=== PATIENT | female | born 1930 | race Caucasian/White ===

== ENCOUNTER 2016-08-01 10:33 | Inpatient (IN) | payer MEDICARE, BC ==
[2016-08-01] MEDS ORDERED: ACETAMINOPHEN TAB 500 MG TAB PO STA (11:18)
--- NOTE | 2016-08-01 11:21 | ED ---
General Adult HPI - General Chief complaint: Dizziness Stated complaint: light headed Time Seen by Provider: 08/01/16 11:09 Source: patient, family, RN notes reviewed Mode of arrival: wheelchair Limitations: no limitations - History of Present Illness Initial comments: Patient is a pleasant 85-year-old female presenting to the emergency department with lightheadedness and blurred vision. 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 Patient has had similar symptoms previously needing blood transfusion. Patient just finished her first round of chemotherapy a couple of weeks ago. Daughter did notice fever this morning. Patient was unaware fever. No chills or myalgias. No cough or dyspnea. No abdominal pain or dysuria. - Related Data Home Medications Medication Instructions Recorded Confirmed Acetaminophen [Tylenol 8 Hour] 650 mg PO QID PRN 06/03/16 08/01/16 Anastrozole [Arimidex] 1 mg PO DAILY 06/03/16 08/01/16 Calcium Carbonate [Calcium] 600 mg PO DAILY 06/03/16 08/01/16 Cholecalciferol [Vitamin D3] 1,000 unit PO DAILY 06/03/16 08/01/16 Diphenoxylate HCl/Atropine 1 - 2 tab PO QID PRN 06/03/16 08/01/16 [Lomotil] Levothyroxine Sodium [Synthroid] 112 mcg PO DAILY 06/03/16 08/01/16 Simvastatin [Zocor] 20 mg PO HS 06/03/16 08/01/16 Ubidecarenone [Co Q-10] 1 cap PO DAILY 06/03/16 08/01/16 amLODIPine BESYLATE [Norvasc] 5 mg PO BID 06/03/16 08/01/16 Insulin NPH Hum/Reg Insulin Hm 20 unit SQ AC-BID 08/01/16 08/01/16 [NovoLIN 70-30 100 UNIT/ML VIAL] Psyllium Husk 100% [Metamucil] 6 gm PO DAILY PRN 08/01/16 08/01/16 Allergies Allergy/AdvReac Type Severity Reaction Status Date / Time No Known Allergies Allergy Verified 08/01/16 13:24 Review of Systems ROS Statement: Those systems with pertinent positive or pertinent negative responses have been documented in the HPI. ROS Other: All systems not noted in ROS Statement are negative. Constitutional: Reports: fever Eyes: Reports: vision change (Blurred). Denies: eye pain ENT: Denies: ear pain Respiratory: Denies: cough, dyspnea Cardiovascular: Denies: chest pain Endocrine: Reports: fatigue Gastrointestinal: Denies: abdominal pain Genitourinary: Denies: dysuria Skin: Denies: rash Neurological: Denies: weakness, confusion Past Medical History Past Medical History: Cancer, Diabetes Mellitus, Hypertension Additional Past Medical History / Comment(s): leukemia, colon cancer History of Any Multi-Drug Resistant Organisms: None Reported Past Surgical History: Bowel Resection Past Psychological History: No Psychological Hx Reported Smoking Status: Never smoker Past Alcohol Use History: None Reported Past Drug Use History: None Reported General Exam Limitations: no limitations General appearance: alert, in no apparent distress Head exam: Present: atraumatic Eye exam: Present: normal appearance ENT exam: Present: normal oropharynx Neck exam: Present: normal inspection Respiratory exam: Present: normal lung sounds bilaterally Cardiovascular Exam: Present: regular rate, normal rhythm, systolic murmur ( Patient states this is chronic) GI/Abdominal exam: Present: soft. Absent: tenderness Extremities exam: Present: normal inspection Neurological exam: Present: alert Psychiatric exam: Present: normal affect, normal mood Skin exam: Absent: rash Course Vital Signs 08/01/16 10:38 Temperature 100.6 F H Pulse Rate 97 Respiratory 20 Rate Blood Pressure 132/60 O2 Sat by Pulse 99 Oximetry EKG Findings - EKG Comments: EKG Findings:: Sinus rhythm at 87. WI 126. QRS 78. QT 414. QTC 498. Normal axis. Normal QRS. Nonspecific T-wave. Medical Decision Making - Medical Decision Making Patient reevaluated and resting comfortably in bed. Patient and family updated on results and plan. Case was discussed in detail with Dr. Glez who will try to see the patient today. Case also discussed with Dr. Barriga, who will admit for Dr. Quinteros. She recommends Levaquin and PRBC transfusion. Patient provided 2 units packed red blood cells and Levaquin was started. Admission orders written with consult. - Lab Data Result diagrams: 08/01/16 12:16 08/01/16 12:10 Lab Results 08/01/16 08/01/16 08/01/16 Range/Units 11:40 12:10 12:10 WBC (3.8-10.6) k/uL RBC (3.80-5.40) m/uL Hgb (11.4-16.0) gm/dL Hct (34.0-46.0) % MCV (80.0-100.0) fL MCH (25.0-35.0) pg MCHC (31.0-37.0) g/dL RDW (11.5-15.5) % Plt Count (150-450) k/uL Neutrophils % (Manual) % Lymphocytes % (Manual) % Monocytes % (Manual) % Myelocytes % % Neutrophils # (Manual) (1.3-7.7) k/uL Lymphocytes # (Manual) (1.0-4.8) k/uL Monocytes # (Manual) (0-1.0) k/uL Nucleated RBCs (0-0) /100 WBC Manual Slide Review Anisocytosis Rouleaux PT (9.0-12.0) sec INR (<1.1) APTT (22.0-30.0) sec Sodium 145 (137-145) mmol/L Potassium 4.6 (3.5-5.1) mmol/L Chloride 106 (98-107) mmol/L Carbon Dioxide 28 (22-30) mmol/L Anion Gap 11 mmol/L BUN 18 H (7-17) mg/dL Creatinine 0.80 (0.52-1.04) mg/dL Est GFR (MDRD) Af Amer >60 (>60 ml/min/1.73 sqM) Est GFR (MDRD) Non-Af >60 (>60 ml/min/1.73 sqM) Glucose 99 (74-99) mg/dL Plasma Lactic Acid Costa (0.7-2.0) mmol/L Calcium 9.1 (8.4-10.2) mg/dL Total Bilirubin 0.3 (0.2-1.3) mg/dL AST 15 (14-36) U/L ALT 29 (9-52) U/L Alkaline Phosphatase 64 (38-126) U/L Total Creatine Kinase 26 L (30-135) U/L CK-MB (CK-2) 0.4 (0.0-2.4) ng/mL CK-MB (CK-2) Rel Index 1.5 Troponin I <0.012 (0.000-0.034) ng/mL Total Protein 7.7 (6.3-8.2) g/dL Albumin 3.4 L (3.5-5.0) g/dL Urine Color Urine Appearance (Clear) Urine pH (5.0-8.0) Ur Specific Spivey (1.001-1.035) Urine Protein (Negative) Urine Glucose (UA) (Negative) Urine Ketones (Negative) Urine Blood (Negative) Urine Nitrate (Negative) Urine Bilirubin (Negative) Urine Urobilinogen (<2.0) mg/dL Ur Leukocyte Esterase (Negative) Influenza Type A RNA Not Detected (Not Detectd) Influenza Type B (PCR) Not Detected (Not Detectd) 08/01/16 08/01/16 08/01/16 Range/Units 12:10 12:10 12:16 WBC 1.3 L* (3.8-10.6) k/uL RBC 1.91 L (3.80-5.40) m/uL Hgb 5.6 L* (11.4-16.0) gm/dL Hct 16.6 L* (34.0-46.0) % MCV 86.7 (80.0-100.0) fL MCH 29.4 (25.0-35.0) pg MCHC 33.9 (31.0-37.0) g/dL RDW 16.4 H (11.5-15.5) % Plt Count 6 L* (150-450) k/uL Neutrophils % (Manual) 49.0 % Lymphocytes % (Manual) 41.0 % Monocytes % (Manual) 5.0 % Myelocytes % 5.0 % Neutrophils # (Manual) 0.6 L (1.3-7.7) k/uL Lymphocytes # (Manual) 0.5 L (1.0-4.8) k/uL Monocytes # (Manual) 0.1 (0-1.0) k/uL Nucleated RBCs 0 (0-0) /100 WBC Manual Slide Review Performed Anisocytosis Slight Rouleaux Present PT 11.1 (9.0-12.0) sec INR 1.1 (<1.1) APTT 22.4 (22.0-30.0) sec Sodium (137-145) mmol/L Potassium (3.5-5.1) mmol/L Chloride (98-107) mmol/L Carbon Dioxide (22-30) mmol/L Anion Gap mmol/L BUN (7-17) mg/dL Creatinine (0.52-1.04) mg/dL Est GFR (MDRD) Af Amer (>60 ml/min/1.73 sqM) Est GFR (MDRD) Non-Af (>60 ml/min/1.73 sqM) Glucose (74-99) mg/dL Plasma Lactic Acid Costa 1.6 (0.7-2.0) mmol/L Calcium (8.4-10.2) mg/dL Total Bilirubin (0.2-1.3) mg/dL AST (14-36) U/L ALT (9-52) U/L Alkaline Phosphatase (38-126) U/L Total Creatine Kinase (30-135) U/L CK-MB (CK-2) (0.0-2.4) ng/mL CK-MB (CK-2) Rel Index Troponin I (0.000-0.034) ng/mL Total Protein (6.3-8.2) g/dL Albumin (3.5-5.0) g/dL Urine Color Urine Appearance (Clear) Urine pH (5.0-8.0) Ur Specific Spivey (1.001-1.035) Urine Protein (Negative) Urine Glucose (UA) (Negative) Urine Ketones (Negative) Urine Blood (Negative) Urine Nitrate (Negative) Urine Bilirubin (Negative) Urine Urobilinogen (<2.0) mg/dL Ur Leukocyte Esterase (Negative) Influenza Type A RNA (Not Detectd) Influenza Type B (PCR) (Not Detectd) 08/01/16 Range/Units 12:41 WBC (3.8-10.6) k/uL RBC (3.80-5.40) m/uL Hgb (11.4-16.0) gm/dL Hct (34.0-46.0) % MCV (80.0-100.0) fL MCH (25.0-35.0) pg MCHC (31.0-37.0) g/dL RDW (11.5-15.5) % Plt Count (150-450) k/uL Neutrophils % (Manual) % Lymphocytes % (Manual) % Monocytes % (Manual) % Myelocytes % % Neutrophils # (Manual) (1.3-7.7) k/uL Lymphocytes # (Manual) (1.0-4.8) k/uL Monocytes # (Manual) (0-1.0) k/uL Nucleated RBCs (0-0) /100 WBC Manual Slide Review Anisocytosis Rouleaux PT (9.0-12.0) sec INR (<1.1) APTT (22.0-30.0) sec Sodium (137-145) mmol/L Potassium (3.5-5.1) mmol/L Chloride (98-107) mmol/L Carbon Dioxide (22-30) mmol/L Anion Gap mmol/L BUN (7-17) mg/dL Creatinine (0.52-1.04) mg/dL Est GFR (MDRD) Af Amer (>60 ml/min/1.73 sqM) Est GFR (MDRD) Non-Af (>60 ml/min/1.73 sqM) Glucose (74-99) mg/dL Plasma Lactic Acid Costa (0.7-2.0) mmol/L Calcium (8.4-10.2) mg/dL Total Bilirubin (0.2-1.3) mg/dL AST (14-36) U/L ALT (9-52) U/L Alkaline Phosphatase (38-126) U/L Total Creatine Kinase (30-135) U/L CK-MB (CK-2) (0.0-2.4) ng/mL CK-MB (CK-2) Rel Index Troponin I (0.000-0.034) ng/mL Total Protein (6.3-8.2) g/dL Albumin (3.5-5.0) g/dL Urine Color Yellow Urine Appearance Clear (Clear) Urine pH 6.5 (5.0-8.0) Ur Specific Spivey 1.019 (1.001-1.035) Urine Protein Trace H (Negative) Urine Glucose (UA) Negative (Negative) Urine Ketones Negative (Negative) Urine Blood Negative (Negative) Urine Nitrate Negative (Negative) Urine Bilirubin Negative (Negative) Urine Urobilinogen <2.0 (<2.0) mg/dL Ur Leukocyte Esterase Negative (Negative) Influenza Type A RNA (Not Detectd) Influenza Type B (PCR) (Not Detectd) - Radiology Data Radiology results: report reviewed (Computed tomography scan of brain shows no acute process.), image reviewed (Chest x-ray shows no acute process. ) Critical Care Time Critical Care Time: Yes Total Critical Care Time: 32 Disposition Clinical Impression: Anemia, Fever, Thrombocytopenia Disposition: ADMITTED IP TO THIS HOSP
[2016-08-01 12:44] LABS: Anisocytosis Slight; Aty Lym Flag Slight; CH 30.1; CHCM 34.9; HDW 3.39; Immature Gran Flag Marked; MCH 29.4 pg (25.0-35.0); MCHC 33.9 g/dL (31.0-37.0); MCV 86.7 fL (80.0-100.0); Mean Platelet Volume 7.7; RBC 1.91 m/uL (3.80-5.40); RDW 16.4 % (11.5-15.5); WBC (Perox) 1.33
--- NOTE | 2016-08-01 12:48 | CT ---
EXAMINATION TYPE: CT brain wo con DATE OF EXAM: 08/01/2016 12:41 PM COMPARISON: NONE HISTORY: C/O dizziness and blurred vision post chemo for Leukemia CT DLP: 999.8 mGycm Automated exposure control for dose reduction was used. FINDINGS: There is cerebral cortical atrophy. There is no mass effect nor midline shift. There is no sign of in tracranial hemorrhage. The calvarium is intact. IMPRESSION: Cerebral atrophy. No acute intracranial abnormality.
--- NOTE | 2016-08-01 12:49 | XR ---
EXAMINATION TYPE: XR chest 2V DATE OF EXAM: 08/01/2016 12:41 PM COMPARISON: NONE HISTORY: Fever and lightheadedness TECHNIQUE: Frontal and lateral views of the chest are obtained. FINDINGS: There is no heart failure nor confluent pneumonic infiltrate. There are no hilar masses. T here are surgical clips over the right breast. There are is atherosclerotic calcification in the thor acic aorta. There is no pleural effusion. IMPRESSION: No active cardiopulmonary disease.
[2016-08-01 12:50] LABS: HCT 16.6 % (34.0-46.0)
[2016-08-01 12:53] LABS: WBC 1.3 k/uL (3.8-10.6)
[2016-08-01] MEDS: SODIUM CHLORIDE 0.9% 500 ML IV SCH ×2 (12:53→14:12)
[2016-08-01 12:54] LABS: HGB 5.6 gm/dL (11.4-16.0)
[2016-08-01 12:54] LABS: ALT 29 U/L (9-52); AST 15 U/L (14-36); Alkaline Phosphatase 64 U/L (38-126); Anion Gap 11 mmol/L; Blood Urea Nitrogen 18 mg/dL (7-17); Calcium 9.1 mg/dL (8.4-10.2); Carbon Dioxide 28 mmol/L (22-30); Chloride 106 mmol/L (98-107); Glucose 99 mg/dL (74-99); Non-African American GFR(MDRD) >60 (>60 ml/min/1.73 sqM); Potassium 4.6 mmol/L (3.5-5.1); Sodium 145 mmol/L (137-145); Total Bilirubin 0.3 mg/dL (0.2-1.3); Total Protein 7.7 g/dL (6.3-8.2)
[2016-08-01 13:01] LABS: Add Differential Manual Differential
[2016-08-01 13:03] LABS: Appearance,Urine Clear (Clear); Bilirubin,Urine Negative (Negative); Glucose,Urine (UA) Negative (Negative); Ketones,Urine Negative (Negative); Leukocyte Esterase,Urine Negative (Negative); Nitrite,Urine Negative (Negative); PH, Urine 6.5 (5.0-8.0); Protein,Urine Trace (Negative); Specific Gravity,Urine 1.019 (1.001-1.035); UA Billing (MACRO vs. MICRO) CHEM; Urobilinogen,Urine <2.0 mg/dL (<2.0)
[2016-08-01 13:03] LABS: INR 1.1 (<1.1); Partial Thromboplastin Time 22.4 sec (22.0-30.0); Prothrombin Time 11.1 sec (9.0-12.0)
[2016-08-01 13:08] LABS: Manual Review Performed; Nucleated Red Blood Cells 0 /100 WBC (0-0); Total Cells Counted 100
[2016-08-01 13:10] LABS: Rouleaux Present
[2016-08-01 13:20] LABS: Creatine Kinase 26 U/L (30-135)
[2016-08-01 13:33] LABS: Creatine Kinase MB 0.4 ng/mL (0.0-2.4); Troponin I <0.012 ng/mL (0.000-0.034)
[2016-08-01] MEDS ORDERED: LEVOFLOXACIN 750MG-D5W PMX 750 MG in DEXTROSE/WATER 1 150ML.BAG IVPB STA (13:39)
[2016-08-01] MEDS ORDERED: NALOXONE 0.4 MG/ML 1 ML VIAL IV PRN (13:42)
[2016-08-01] MEDS: SODIUM CHLORIDE 0.9% 1,000 ML IV SCH ×2 (14:07→20:20)
[2016-08-01] MEDS ORDERED: CEFEPIME 2 GM in SODIUM CHLORIDE 0.9% 50 ML IVPB SCH (16:00)
[2016-08-01 16:33] LABS: Glucose,Whole Blood 178 mg/dL (75-99)
[2016-08-01] MEDS ORDERED: SODIUM CHLORIDE 0.9% 500 ML IV ONE (17:38)
[2016-08-01] MEDS ORDERED: IV VANCOMYCIN PER PHARMACY 1 EACH MISC MISCELLANE PRN (17:38)
[2016-08-01] MEDS ORDERED: VANCOMYCIN 1,000 MG in SODIUM CHLORIDE 0.9% 250 ML IVPB STA (17:43)
[2016-08-01] MEDS: PANTOPRAZOLE 40 MG/10 ML VIAL IV SCH (20:20)
[2016-08-01] MEDS: CEFEPIME 2 GM in SODIUM CHLORIDE 0.9% 50 ML IVPB SCH (20:20)
--- NOTE | 2016-08-01 20:29 | CONS ---
DATE OF CONSULTATION: 08/01/2016 REASON FOR CONSULTATION: Acute myelogenous leukemia. CHIEF COMPLAINT: Weak and dizzy. Alla is a very pleasant 85-year-old lady very well-known to me for quite some time. The patient was initially diagnosed with right breast carcinoma when she presented with palpable mass in November 2013. It was about 5 cm mass in her breast. 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 All margins were negative. The patient declined adjuvant radiation therapy. However, she agreed to endocrine therapy with oral Arimidex, which she has been on. Then subsequently in July 2014 she had a screening colonoscopy and was found to have a few polyps in her colon, one in the transverse colon which malignant and she underwent hemicolectomy on 07/25/2014. 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 The patient was on observation in that regard. However, she did okay until May 2015 when she presented with lower gastrointestinal bleed and she had EGD and colonoscopy on 06/12/2015, which found to have lesion in the distal bowel. Biopsy was positive for well differentiated endocrine carcinoma. CT scan of the abdomen and pelvis revealed inflammatory changes in the bowel and intermediate lung nodules. She had a PET scan in June 2015, which did not reveal any evidence of metastatic disease. 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 She had 9 out of ( ) positive nodes and the patient was placed on observation in that regard. The patient, subsequently developed progressive anemia and she became severely anemic in April 2016 and she ended up having a bone marrow biopsy on 06/09/2016 which was consistent with acute myelogenous leukemia with cytogenetic and FISH analysis revealing 5q lesion and gain of 8q24. After lengthy discussion with the patient about her overall prognosis, which is poor and we discussed treatment options. At her age she was not a candidate for high-intensity chemotherapy. She was also offered referral to clinical trial versus treatment with ( ) agent like Dacogen or Vidaza. The patient made a decision to proceed with Dacogen, which we started Dacogen on 07/13/2016 and she has one cycle so far completed on 07/17/2016. However, the patient was brought into the hospital by her sister because she has been feeling very weak and lightheaded over the last few days. She was found to be severely anemic and neutropenic. She also had a fever in the emergency department so the patient is being admitted to the hospital. She denied feeling feverish or having chills at home. She was only feeling dizzy and lightheaded. No headaches. No dysphagia. No nausea or vomiting. No melena, hematochezia, hematuria, or hemoptysis. No change in her bowel habits. No urinary symptoms. No headaches. No seizure, no syncope. PAST MEDICAL HISTORY: As stated above, she has breast carcinoma, colon carcinoma, carcinoid tumor of small bowel and as stated recent diagnosis of acute myelogenous leukemia. She also has a history of hypertension, hyperlipidemia and heart murmur, history of diabetes and hypothyroidism. PAST SURGICAL HISTORY: She has a history of hemicolectomy, right breast lumpectomy, partial small bowel resection, appendectomy, and tubal ligation in the past. FAMILY HISTORY: She has one brother with bone cancer, daughter who had ovarian cancer and carcinoma of the cervix. She had an aunt who had brain cancer as well. REVIEW OF SYSTEMS: As stated above in the history of present illness. ALLERGIES: No known drug allergies. Current medications include: 1. Tylenol as needed. 2. Levaquin 750 mg IV daily. 3. Protonix 40 mg IV daily. 4. She is on IV fluids at 20 ml/h. On physical examination she is alert and oriented x3. She does not appear to be in acute distress at this time. Well-developed, well-nourished. Her vital signs are temperature 100.6 upon admission, now is 100.5. HEENT: Normocephalic, atraumatic. No obvious icterus. NECK: Supple. No jugular venous distention. CHEST: Equal expansion to auscultation and percussion. HEART: Regular rate and rhythm. ABDOMEN: Soft. No apparent organomegaly or masses. Bowel sounds present. EXTREMITIES: No edema. SKIN: No significant bruises, petechia. LYMPHATICS: No peripherally enlarged cervical, supraclavicular lymphadenopathy. MUSCULOSKELETAL: Moving all extremities appropriately. No percussion tenderness detected over spine or sternum. LABORATORY DATA: WBC 1.0, hemoglobin is 5.6, hematocrit 16.6, platelets are 6, absolute neutrophil count 0.6, sodium 145, potassium 4.6, chloride 106, CO2 is 28. BUN 18, creatinine 0.8, AST and total bilirubin are within normal limits. Chest x-ray done in the emergency department was normal. IMPRESSION: 1. Fever neutropenic lady. 2. Acute myelogenous leukemia with diagnostic and therapeutic circumstances as stated above. 3. Pancytopenia secondary to above. 4. Secondary to above and recent treatment with Dacogen. 5. History of breast carcinoma. 6. History of adenocarcinoma of the colon. 7. History of neuroendocrine carcinoma of the small bowel. 8. Multiple other comorbidities. RECOMMENDATIONS: 1. Agree with admitting the patient to the hospital. 2. Will change her to broad-spectrum antibiotics. 3. Start the patient on granulocyte colony-stimulating factor. 4. Panculture and urine cultures will be obtained prior to initiation of broad-spectrum antibiotics. 5. Supportive transfusion and supportive care will be provided. 6. The above was discussed with the patient and I answered all her questions to her satisfaction. Thank you very much for asking me to participate in the care of this lady.
[2016-08-01 20:38] LABS: Creatine Kinase 29 U/L (30-135)
[2016-08-01 20:51] LABS: Creatine Kinase MB 0.3 ng/mL (0.0-2.4); Troponin I <0.012 ng/mL (0.000-0.034)
--- NOTE | 2016-08-01 20:52 | CONS ---
DATE OF CONSULTATION: 08/01/2016 REASON FOR CONSULT: Hypertension, severe anemia, general ICU care and sepsis. HISTORY OF PRESENTING ILLNESS: Ms. Alla Bingham is an 85-year-old female who was seen, evaluated and examined in the emergency department. This patient presented to the hospital with generalized weakness and dizziness. Patient has a history of chronic anemia. Her symptoms are very much consistent with her prior symptoms of anemia, came into the hospital. Patient was seen, evaluated, examined in the emergency department, found to be severity anemic, her hemoglobin only 5, and low platelet count. The patient is to get a blood transfusion as well as platelet transfusions, being admitted to the ICU. Patient recently finished chemotherapy for acute leukemia a week ago. Patient has been running a fever as well. Denies any cough or sputum production. Denies any chest pain, but does complain of generalized weakness. PAST MEDICAL HISTORY: As dictated above, significant for diabetes mellitus, hypertension, colon cancer and leukemia. PAST SURGICAL HISTORY: Significant for bowel resection. FAMILY HISTORY AND SOCIAL HISTORY: Denies any smoking, ethanol abuse. Denies any substance use. ALLERGIES: No known drug allergy. Medications at home include: 1. 70/30 insulin 20 units 2 times a day. 2. Metamucil 6 g daily. 3. Amlodipine 5 mg p.o. 2 times a day. 4. Also on Tylenol as needed. 5. Arimidex 1 mg daily. 6. Calcium carbonate 600 mg daily. Vitamin D. 7. Also on Lomotil as needed. 8. Synthroid 112 mcg daily. 9. Zocor 20 mg daily. REVIEW OF SYSTEMS: PHARMACEUTICAL PHYSICIAN: Denies any seizure-like activity, loss of consciousness, hemiparesis, but does complain of generalized weakness. CARDIORESPIRATORY: Denies any chest pain or radiation of pain. Denies any sputum production. GI/: Otherwise unremarkable and noncontributory. MUSCULOSKELETAL/DERMATOLOGICAL: Unremarkable and noncontributory. Medications initiated in the emergency department include: 1. Cefepime q.12 hourly 2 g. 2. Also on Naloxone. 3. Protonix. 4. IV fluid 100 mL an hour and 5. Tylenol as needed. On examination, most recent vitals include blood pressure is 127/66, respirations 20, pulse 85, temperature 98, saturation 96% on room air. HEENT: Atraumatic, normocephalic. Pharynx is clear. Narrow pharyngeal opening is present. NECK: Supple without lymphadenopathy, jugular venous distention or carotid bruits. LUNGS: Bilateral good air entry is present without significant rales, rhonchi or rub. HEART: Regular rate and rhythm. S1 and S2 audible. ABDOMEN: Soft. No rebound or rigidity. EXTREMITIES: +1 peripheral pulses. NEUROLOGICAL: Otherwise, awake and alert. The x-ray of the chest is unremarkable. The CT scan of the brain is unremarkable. Other laboratory data reviewed, which include white cell count is only 1300, hemoglobin of 5.6, hematocrit 16, platelet count only 6000. PT, INR within normal limits. Chemistry within normal limits. Urinalysis is unremarkable. Stool for occult blood is positive. Influenza A and B both negative. IMPRESSION: 1. Low-grade fever of unclear etiology. Patient is pancytopenic post chemotherapy. Agree with empiric antibiotic in the form of Cefepime. 2. Pancytopenia, including anemia, thrombocytopenia and leukopenia post chemotherapy. 3. Occult gastrointestinal bleed cannot be excluded, given severe thrombocytopenia is present and likely secondary to that, rather than primary event. Primary event appears to be more a bone marrow suppression. 4. Leukemia. 5. History of colon cancer. 6. Diabetes mellitus with relatively stable sugars, normal renal functions. PLAN AND RECOMMENDATIONS: As above. Continue supportive care. Agree with placement into the ICU. Patient to be kept on DVT prophylaxis with pneumatic compression device, peptic ulcer disease prophylaxis with Protonix, blood transfusion and platelets transfusion. Will monitor and observe.
[2016-08-02 00:11] LABS: Creatine Kinase 27 U/L (30-135)
[2016-08-02 00:24] LABS: Creatine Kinase MB 0.4 ng/mL (0.0-2.4); Troponin I <0.012 ng/mL (0.000-0.034)
[2016-08-02 05:00] LABS: ALT 31 U/L (9-52); AST 16 U/L (14-36); Alkaline Phosphatase 56 U/L (38-126); Anion Gap 11 mmol/L; Blood Urea Nitrogen 11 mg/dL (7-17); Calcium 8.5 mg/dL (8.4-10.2); Carbon Dioxide 22 mmol/L (22-30); Chloride 109 mmol/L (98-107); Glucose 137 mg/dL (74-99); Magnesium 1.9 mg/dL (1.6-2.3); Non-African American GFR(MDRD) >60 (>60 ml/min/1.73 sqM); Phosphorous 2.6 mg/dL (2.5-4.5); Potassium 4.2 mmol/L (3.5-5.1); Sodium 142 mmol/L (137-145); Total Bilirubin 0.7 mg/dL (0.2-1.3); Total Protein 6.8 g/dL (6.3-8.2)
[2016-08-02] MEDS ORDERED: Magnesium Replacement Protocol 1 EACH MISC MISCELLANE PRN (05:20)
[2016-08-02 05:36] LABS: CH 29.4; CHCM 33.2; HCT 20.4 % (34.0-46.0); HDW 3.13; Immature Gran Flag Marked; Large Platelets Flag Moderate; MCH 29.4 pg (25.0-35.0); MCHC 33.1 g/dL (31.0-37.0); MCV 88.8 fL (80.0-100.0); Mean Platelet Volume 12.3; RDW 15.8 % (11.5-15.5); WBC (Perox) 1.39
[2016-08-02 05:41] LABS: WBC 1.4 k/uL (3.8-10.6)
[2016-08-02 05:42] LABS: HGB 6.8 gm/dL (11.4-16.0)
[2016-08-02] MEDS: MAGNESIUM SULFATE-D5W PMX 1 GM in DEXTROSE/WATER 1 100ML.BAG IVPB SCH ×2 (05:46→06:55)
[2016-08-02] MEDS: SODIUM CHLORIDE 0.9% 1,000 ML IV SCH ×3 (05:46→18:32)
[2016-08-02] MEDS: LEVOTHYROXINE 112 MCG TAB PO SCH (07:12)
[2016-08-02] MEDS: CALCIUM CARBONATE 500 MG CHEWABLE PO SCH (08:00)
[2016-08-02] MEDS: CEFEPIME 2 GM in SODIUM CHLORIDE 0.9% 50 ML IVPB SCH ×2 (08:00→18:31)
[2016-08-02] MEDS: ANASTROZOLE 1 MG TAB PO SCH (08:01)
[2016-08-02] MEDS: amLODIPine 5 MG TAB PO SCH ×2 (08:01→19:41)
[2016-08-02] MEDS: PANTOPRAZOLE 40 MG/10 ML VIAL IV SCH (08:05)
--- NOTE | 2016-08-02 08:21 | XR ---
EXAMINATION TYPE: XR chest 1V DATE OF EXAM: 08/02/2016 6:32 AM COMPARISON: August 01, 2016 HISTORY: Shortness of breath TECHNIQUE: Single frontal view of the chest is obtained. FINDINGS: There is no pleural effusion or pneumothorax. Developing infrahilar opacities likely relat e to atelectasis given decrease in degree of inspiration compared to the prior exam. Postsurgical ch anges again overlie the right lower lobe, located within the right breast. The cardiac silhouette siz e is within normal limits. Degenerative changes are appreciated of the glenohumeral joint, acromiocla vicular joint, and visualized thoracic spine. IMPRESSION: Decreased degree of inspiration in comparison to the prior exam resulting in bibasilar a nd infrahilar atelectasis.
[2016-08-02 08:26] LABS: Add Differential Manual Differential
[2016-08-02 08:30] LABS: Manual Review Performed; Nucleated Red Blood Cells 0 /100 WBC (0-0); Rouleaux Present; Total Cells Counted 100
[2016-08-02] MEDS: FILGRASTIM-SNDZ 480 MCG/0.8 ML SYRINGE SQ SCH (08:30)
[2016-08-02] MEDS ORDERED: VANCOMYCIN 1,250 MG in SODIUM CHLORIDE 0.9% 250 ML IVPB SCH (09:00)
[2016-08-02] MEDS ORDERED: UBIDECARENONE PO SCH (09:00)
[2016-08-02] MEDS ORDERED: FUROSEMIDE 10 MG/ML 2 ML VIAL IV ONE (09:00)
--- NOTE | 2016-08-02 10:29 | P.GSCN ---
History of Present Illness Consult date: 08/02/16 Reason for Consult: Anemia History of present illness: The patient is well known to me. She has a history of a breast cancer which was treated surgically in the past. She also had a colon resection for a localize colon cancer. 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 Just started treatment for this last month. She is brought in the hospital due to weakness and dizziness. Review of Systems All systems: negative Past Medical History Past Medical History: Cancer, Diabetes Mellitus, Hypertension Additional Past Medical History / Comment(s): leukemia, colon cancer, breast cancer, neuroendocrine tumor of the ileum History of Any Multi-Drug Resistant Organisms: None Reported Past Surgical History: Bowel Resection Additional Past Surgical History / Comment(s): Lumpectomy with sentinel lymph node biopsy Past Anesthesia/Blood Transfusion Reactions: No Reported Reaction Past Psychological History: No Psychological Hx Reported Smoking Status: Never smoker Past Alcohol Use History: None Reported Past Drug Use History: None Reported Medications and Allergies Home Medications Medication Instructions Recorded Confirmed Type Acetaminophen [Tylenol 8 Hour] 650 mg PO QID PRN 06/03/16 08/01/16 History Anastrozole [Arimidex] 1 mg PO DAILY 06/03/16 08/01/16 History Calcium Carbonate [Calcium] 600 mg PO DAILY 06/03/16 08/01/16 History Cholecalciferol [Vitamin D3] 1,000 unit PO DAILY 06/03/16 08/01/16 History Diphenoxylate HCl/Atropine 1 - 2 tab PO QID PRN 06/03/16 08/01/16 History [Lomotil] Levothyroxine Sodium [Synthroid] 112 mcg PO DAILY 06/03/16 08/01/16 History Simvastatin [Zocor] 20 mg PO HS 06/03/16 08/01/16 History Ubidecarenone [Co Q-10] 1 cap PO DAILY 06/03/16 08/01/16 History amLODIPine BESYLATE [Norvasc] 5 mg PO BID 06/03/16 08/01/16 History Insulin NPH Hum/Reg Insulin Hm 20 unit SQ AC-BID 08/01/16 08/01/16 History [NovoLIN 70-30 100 UNIT/ML VIAL] Psyllium Husk 100% [Metamucil] 6 gm PO DAILY PRN 08/01/16 08/01/16 History Allergies Allergy/AdvReac Type Severity Reaction Status Date / Time No Known Allergies Allergy Verified 08/01/16 13:24 Surgical - Exam Osteopathic Statement: *. No significant issues noted on an osteopathic structural exam other than those noted in the History and Physical/Consult. Vital Signs Temp Pulse Resp BP Pulse Ox 100.6 F H 97 20 132/60 99 08/01/16 10:38 08/01/16 10:38 08/01/16 10:38 08/01/16 10:38 08/01/16 10:38 - General well developed, well nourished, no distress - Eyes normal ocular movement - ENT normal mucosa, decreased hearing (Which is chronic for her and stable) - Neck trachea midline - Respiratory normal expansion, normal respiratory effort, clear to auscultation - Cardiovascular Rhythm: regular - Abdomen Abdomen: soft, non tender, bowel sounds Results - Labs 08/02/16 04:10 08/02/16 04:10 Abnormal Lab Results - Last 24 Hours (Table) 08/01/16 08/01/16 08/01/16 Range/Units 15:32 15:35 16:32 WBC (3.8-10.6) k/uL RBC (3.80-5.40) m/uL Hgb (11.4-16.0) gm/dL Hct (34.0-46.0) % RDW (11.5-15.5) % Plt Count (150-450) k/uL Neutrophils # (Manual) (1.3-7.7) k/uL Lymphocytes # (Manual) (1.0-4.8) k/uL Chloride (98-107) mmol/L Glucose (74-99) mg/dL POC Glucose (mg/dL) 178 H (75-99) mg/dL Plasma Lactic Acid Costa 4.2 H* (0.7-2.0) mmol/L Total Creatine Kinase (30-135) U/L Albumin (3.5-5.0) g/dL Stool Occult Blood Positive H (Negative) 08/01/16 08/01/16 08/02/16 Range/Units 18:49 23:29 04:10 WBC 1.4 L* (3.8-10.6) k/uL RBC 2.30 L (3.80-5.40) m/uL Hgb 6.8 L* (11.4-16.0) gm/dL Hct 20.4 L (34.0-46.0) % RDW 15.8 H (11.5-15.5) % Plt Count 17 L* D (150-450) k/uL Neutrophils # (Manual) 0.7 L (1.3-7.7) k/uL Lymphocytes # (Manual) 0.5 L (1.0-4.8) k/uL Chloride (98-107) mmol/L Glucose (74-99) mg/dL POC Glucose (mg/dL) (75-99) mg/dL Plasma Lactic Acid Costa (0.7-2.0) mmol/L Total Creatine Kinase 29 L 27 L (30-135) U/L Albumin (3.5-5.0) g/dL Stool Occult Blood (Negative) 08/02/16 Range/Units 04:10 WBC (3.8-10.6) k/uL RBC (3.80-5.40) m/uL Hgb (11.4-16.0) gm/dL Hct (34.0-46.0) % RDW (11.5-15.5) % Plt Count (150-450) k/uL Neutrophils # (Manual) (1.3-7.7) k/uL Lymphocytes # (Manual) (1.0-4.8) k/uL Chloride 109 H (98-107) mmol/L Glucose 137 H (74-99) mg/dL POC Glucose (mg/dL) (75-99) mg/dL Plasma Lactic Acid Costa (0.7-2.0) mmol/L Total Creatine Kinase (30-135) U/L Albumin 2.9 L (3.5-5.0) g/dL Stool Occult Blood (Negative) Diabetes panel 08/02/16 Range/Units 04:10 Sodium 142 (137-145) mmol/L Potassium 4.2 (3.5-5.1) mmol/L Chloride 109 H (98-107) mmol/L Carbon Dioxide 22 (22-30) mmol/L BUN 11 (7-17) mg/dL Creatinine 0.70 (0.52-1.04) mg/dL Glucose 137 H (74-99) mg/dL Calcium 8.5 (8.4-10.2) mg/dL AST 16 (14-36) U/L ALT 31 (9-52) U/L Alkaline Phosphatase 56 (38-126) U/L Total Protein 6.8 (6.3-8.2) g/dL Albumin 2.9 L (3.5-5.0) g/dL Calcium panel 08/02/16 Range/Units 04:10 Calcium 8.5 (8.4-10.2) mg/dL Phosphorus 2.6 (2.5-4.5) mg/dL Albumin 2.9 L (3.5-5.0) g/dL Pituitary panel 08/02/16 Range/Units 04:10 Sodium 142 (137-145) mmol/L Potassium 4.2 (3.5-5.1) mmol/L Chloride 109 H (98-107) mmol/L Carbon Dioxide 22 (22-30) mmol/L BUN 11 (7-17) mg/dL Creatinine 0.70 (0.52-1.04) mg/dL Glucose 137 H (74-99) mg/dL Calcium 8.5 (8.4-10.2) mg/dL Adrenal panel 08/02/16 Range/Units 04:10 Sodium 142 (137-145) mmol/L Potassium 4.2 (3.5-5.1) mmol/L Chloride 109 H (98-107) mmol/L Carbon Dioxide 22 (22-30) mmol/L BUN 11 (7-17) mg/dL Creatinine 0.70 (0.52-1.04) mg/dL Glucose 137 H (74-99) mg/dL Calcium 8.5 (8.4-10.2) mg/dL Total Bilirubin 0.7 (0.2-1.3) mg/dL AST 16 (14-36) U/L ALT 31 (9-52) U/L Alkaline Phosphatase 56 (38-126) U/L Total Protein 6.8 (6.3-8.2) g/dL Albumin 2.9 L (3.5-5.0) g/dL Assessment and Plan (1) Pancytopenia Status: Acute (2) Febrile neutropenia Status: Acute (3) History of breast cancer in female Status: Acute (4) History of colon cancer Status: Acute (5) History of malignant neuroendocrine tumor Status: Acute (6) Anemia Status: Acute Plan: Although she is heme positive, no evidence of acute GI bleed. Recommend treatment for her acute myelogenous leukemia. If she develops active bleeding would consider EGD. Possible colonoscopy but that's been performed within the last year.
--- NOTE | 2016-08-02 11:43 | PN ---
DATE OF SERVICE: 08/02/2016 Ms. Alla Bingham is seen, evaluated and examined. She is an 85-year-old female with problems associated with chronic anemia and acute leukemia, status post chemotherapy. Clinically patient is doing well, awake, alert, breathing comfortably. Lactic acidosis has significantly improved. The patient is currently undergoing a third unit of packed RBCs. Another unit is being planned. She still has dark stool. GI service is on consult as well. Her last set of vitals includes blood pressure is 124/65, respiratory rate 20, pulse 78, temperature 98, sating 95%. HEENT: Unremarkable. NECK: Supple. LUNGS: Good air entry bilaterally. HEART: Regular rate and rhythm. ABDOMEN: Soft. NEUROLOGICAL EXAMINATION: Otherwise awake and alert. Labs reviewed. White cell count is 1400, hemoglobin and hematocrit is 6.8 and 28, platelet count of 17,000 up from 6000. Sodium is ( ), potassium 4.2. BUN and creatinine 11 and 0.7. IMPRESSION: 1. Gastrointestinal bleed. 2. Severe thrombocytopenia and pancytopenia. 3. Severe anemia, post chemotherapy. 4. Systemic inflammatory response syndrome like process related severe anemia with lactic acidosis. Lactic acid level has improved now. Plan and recommendation is to continue blood transfusion, keep hemoglobin above 8, awaiting further evaluation by the Surgical Service. Chest x-ray performed today has been reviewed, subsegmental atelectasis cannot be excluded. Will follow.
--- NOTE | 2016-08-02 12:03 | P.HPIM ---
History of Present Illness H&P Date: 08/02/16 Chief Complaint: Dizziness This is an 85-year-old female. Her primary care physician is Dr. Pride. She has a past medical history of diabetes mellitus type 2 insulin- requiring, hypertension, hyperlipidemia, hypothyroidism, breast cancer, colon cancer status post bowel resection, acute myelogenous leukemia, pancytopenia, vitamin D deficiency. Patient had a recent hospitalization at [facility] at which time she was admitted from July 02 through 2016. She was treated for anemia and was transfused with 3 units of packed RBCs. Her troponins were elevated 0.33 and this was thought to be due to the anemia. Her EF was 55-60% patient states that she noticed her vision was fuzzy the past 2 days when she got up in the morning and then that would clear in the next hour and a half to 2 hours. She also states that her sister didn't like the color of her skin or her lips and made her come into the hospital. She denies having any abdominal pain she denies any falls. She does have chronic diarrhea. She states her first bowel movement in the morning is usually formed and then her stools are loose throughout the day and she goes 5-6 times depending on what she eats. She denies having any lightheadedness or dizziness. She does receive outpatient transfusions in the last one was on July 24. Patient presented to [facility] emergency center. She was found to have a fever of 100.6, thrombocytopenia with white count of 1.3, hemoglobin 5.6 and platelet count 6. Troponin was negative. Influenza A and B by PCR not detected. Electrolytes, kidney and liver functions within normal limits. Urinalysis negative. CAT scan of the brain showed no acute process. Chest x-ray showed no acute process. Patient did have a bloody bowel movement while in the emergency center. Patient was admitted to the intensive care unit , consult with Dr. Salas requested for intensive care management and oncology consult placed. Consult with Dr. Varner for anemia. Blood cultures were obtained. She received 1 dose of Levaquin and vancomycin in the emergency center. She is currently on Cefepime. She is status post transfusion of platelets and packed RBCs. She has not required vasopressors. She has been seen by Dr. 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 CAT scan revealed inflammatory changes in the bowel and lung nodules. PET scan in June 2015 did not reveal any evidence of metastatic disease. 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 Due to severe anemia in April 2016 she underwent a bone marrow biopsy which was consistent with acute myelogenous leukemia. Patient decided to start Dacogen which was done on 07/13/2016 and completed 1 cycle on 07/17/2016. Patient is also followed by Dr. Salas for intensive care management. She has been seen by Dr. Varner for anemia. Occult stool was positive but no evidence of acute GI bleed. No procedures planned at this time. Review of Systems All systems: negative Constitutional: Denies chills, Denies fever Eyes: bilateral blurred vision, denies pain Ears, nose, mouth and throat: Denies headache, Denies sore throat Cardiovascular: Denies chest pain, Denies shortness of breath Respiratory: Denies cough Gastrointestinal: Denies abdominal pain, Denies diarrhea, Denies nausea, Denies vomiting Genitourinary: Denies dysuria, Denies hematuria Musculoskeletal: Denies myalgias Integumentary: Reports color changes, Denies pruritus, Denies rash Neurological: Denies numbness, Denies weakness Psychiatric: Denies anxiety, Denies depression Endocrine: Denies fatigue, Denies weight change Past Medical History Past Medical History: Cancer, Diabetes Mellitus, Hyperlipidemia, Hypertension, Thyroid Disorder Additional Past Medical History / Comment(s): Breast cancer status post lumpectomy and sentinel node biopsy 2013, 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, acute myelogenous leukemia, pancytopenia, hypothyroidism, diabetes mellitus type 2 insulin requiring History of Any Multi-Drug Resistant Organisms: None Reported Past Surgical History: Appendectomy, Bowel Resection Additional Past Surgical History / Comment(s): Right breast lumpectomy, Hemicolectomy, bone marrow biopsy and aspiration, ectopic surgery Past Anesthesia/Blood Transfusion Reactions: No Reported Reaction Past Psychological History: No Psychological Hx Reported Smoking Status: Former smoker Past Alcohol Use History: None Reported Additional Past Alcohol Use History / Comment(s): Patient smoked a half a pack a day for 50 years and quit in 2007. She denies any alcohol or illegal drug use. She is and lives with her sister. She is quite active she does not have oxygen, nebulizer, CPAP. She does not need cane or walker. Past Drug Use History: None Reported - Past Family History Father Additional Family Medical History / Comment(s): Father at age 78 from lung cancer. Mother Additional Family Medical History / Comment(s): Mother at age 78 from brain hemorrhage. Brother(s) Additional Family Medical History / Comment(s): Patient has 6 siblings with medical problems including diabetes, hypertension, breast cancer. Daughter(s) Additional Family Medical History / Comment(s): She has one daughter that from breast cancer. Medications and Allergies Home Medications Medication Instructions Recorded Confirmed Type Acetaminophen [Tylenol 8 Hour] 650 mg PO QID PRN 06/03/16 08/01/16 History Anastrozole [Arimidex] 1 mg PO DAILY 06/03/16 08/01/16 History Calcium Carbonate [Calcium] 600 mg PO DAILY 06/03/16 08/01/16 History Cholecalciferol [Vitamin D3] 1,000 unit PO DAILY 06/03/16 08/01/16 History Diphenoxylate HCl/Atropine 1 - 2 tab PO QID PRN 06/03/16 08/01/16 History [Lomotil] Levothyroxine Sodium [Synthroid] 112 mcg PO DAILY 06/03/16 08/01/16 History Simvastatin [Zocor] 20 mg PO HS 06/03/16 08/01/16 History Ubidecarenone [Co Q-10] 1 cap PO DAILY 06/03/16 08/01/16 History amLODIPine BESYLATE [Norvasc] 5 mg PO BID 06/03/16 08/01/16 History Insulin NPH Hum/Reg Insulin Hm 20 unit SQ AC-BID 08/01/16 08/01/16 History [NovoLIN 70-30 100 UNIT/ML VIAL] Psyllium Husk 100% [Metamucil] 6 gm PO DAILY PRN 08/01/16 08/01/16 History Allergies Allergy/AdvReac Type Severity Reaction Status Date / Time No Known Allergies Allergy Verified 08/01/16 13:24 Physical Exam Vitals: Vital Signs Temp Pulse Resp BP Pulse Ox 08/02/16 07:00 78 21 124/65 95 08/02/16 06:00 75 18 132/61 94 L 08/02/16 05:00 80 12 133/61 94 L 08/02/16 04:00 98.4 F 81 11 L 133/58 96 08/02/16 03:00 78 19 119/58 92 L 08/02/16 02:00 98.7 F 81 24 115/70 93 L 08/02/16 01:55 98.4 F 70 18 136/65 94 L 08/02/16 01:02 98.4 F 80 16 122/56 08/02/16 01:00 83 19 132/57 95 08/02/16 00:32 98.6 F 80 18 120/62 08/02/16 00:24 98.4 F 82 16 136/60 08/02/16 00:22 99.0 F 81 16 140/65 08/02/16 00:00 99.0 F 80 20 139/68 94 L 08/01/16 23:07 81 20 143/59 96 08/01/16 23:00 80 21 143/59 95 08/01/16 22:24 98.6 F 80 16 140/70 08/01/16 22:00 84 20 143/59 95 08/01/16 21:54 98.6 F 82 16 140/70 08/01/16 21:44 98.4 F 76 16 139/69 08/01/16 21:24 89 26 H 160/84 94 L 08/01/16 20:50 86 160/84 96 08/01/16 20:40 85 160/84 97 08/01/16 20:36 98.7 F 80 18 143/59 98 08/01/16 20:30 87 98 08/01/16 20:20 98.3 F 83 97 08/01/16 20:10 86 98 08/01/16 20:00 83 98 08/01/16 19:50 90 151/67 99 08/01/16 19:40 84 151/67 98 08/01/16 19:30 86 157/62 99 08/01/16 19:20 90 146/72 98 08/01/16 19:10 88 146/79 99 08/01/16 19:00 82 136/64 99 08/01/16 18:50 82 126/65 98 08/01/16 18:40 88 141/65 97 08/01/16 18:30 87 129/62 98 08/01/16 18:21 98.7 F 81 16 160/84 08/01/16 18:20 84 134/67 98 08/01/16 18:10 86 134/67 97 08/01/16 18:00 98.4 F 87 138/84 90 L 08/01/16 17:50 88 116/53 97 08/01/16 17:40 81 116/53 97 08/01/16 17:30 79 102/49 98 08/01/16 17:20 79 128/53 98 08/01/16 17:10 79 128/53 99 08/01/16 17:00 88 18 111/52 96 08/01/16 16:50 81 129/52 98 08/01/16 16:40 83 129/52 98 08/01/16 16:34 98.8 F 20 96 08/01/16 16:16 98.2 F 85 20 127/66 96 08/01/16 15:33 98.7 F 98 18 122/60 99 08/01/16 14:13 100.5 F H 83 20 121/56 100 08/01/16 13:44 84 18 129/60 100 Intake and Output 08/01/16 08/02/16 08/02/16 22:59 06:59 14:59 Intake Total 1210 1312 100 Output Total 1 4 1 Balance 1209 1308 99 Intake: IV 200 800 100 Sodium Chloride 0.9% 1, 200 800 100 000 ml @ 100 mls/hr IV . Q10H LIZETH Rx#:[id number] Intake, IV Titration 700 Amount Cefepime 2 gm In Sodium 200 Chloride 0.9% 50 ml @ 100 mls/hr IVPB Q12HR@0600, 1800 LIZETH Rx#:[id number] Sodium Chloride 0.9% 500 500 ml @ 999 mls/hr IV .Q31M ONE Rx#:[id number] Blood Product 310 512 0 Platelet Pheresis Acda2 202 Unit [id number] Rc As-1 Unit 0 [id number] Rc Pheresis As-3 Unit 310 [id number] Rc Pheresis As-3 Unit 0 310 [id number] Output: Urine/Stool Mix 1 4 1 Other: Voiding Method Bedside Commode Bedside Commode Weight 74.8 kg Gen: This is an 85-year-old female. She is found sitting up and appears to be in no acute distress. HEENT: Head is atraumatic, normocephalic. Pupils equal, round. Sclerae is anicteric. Conjunctiva pale. NECK: Supple. No JVD. No lymphadenopathy. No thyromegaly. LUNGS: Clear to auscultation. No wheezes or rhonchi. No intercostal retractions. HEART: Regular rate and rhythm. No murmur. ABDOMEN: Soft. Bowel sounds are present. No masses. No tenderness. EXTREMITIES: No pedal edema. No calf tenderness. Dorsalis pedis +2 bilaterally. NEUROLOGICAL: Patient is awake, alert and oriented x3. Cranial nerves 2 through 12 are grossly intact. Results CBC & Chem 7: 08/02/16 04:10 08/02/16 04:10 Labs: Abnormal Lab Results - Last 24 Hours (Table) 08/01/16 08/01/16 08/01/16 Range/Units 15:32 15:35 16:32 WBC (3.8-10.6) k/uL RBC (3.80-5.40) m/uL Hgb (11.4-16.0) gm/dL Hct (34.0-46.0) % RDW (11.5-15.5) % Plt Count (150-450) k/uL Neutrophils # (Manual) (1.3-7.7) k/uL Lymphocytes # (Manual) (1.0-4.8) k/uL Chloride (98-107) mmol/L Glucose (74-99) mg/dL POC Glucose (mg/dL) 178 H (75-99) mg/dL Plasma Lactic Acid Costa 4.2 H* (0.7-2.0) mmol/L Total Creatine Kinase (30-135) U/L Albumin (3.5-5.0) g/dL Stool Occult Blood Positive H (Negative) 08/01/16 08/01/16 08/02/16 Range/Units 18:49 23:29 04:10 WBC 1.4 L* (3.8-10.6) k/uL RBC 2.30 L (3.80-5.40) m/uL Hgb 6.8 L* (11.4-16.0) gm/dL Hct 20.4 L (34.0-46.0) % RDW 15.8 H (11.5-15.5) % Plt Count 17 L* D (150-450) k/uL Neutrophils # (Manual) 0.7 L (1.3-7.7) k/uL Lymphocytes # (Manual) 0.5 L (1.0-4.8) k/uL Chloride (98-107) mmol/L Glucose (74-99) mg/dL POC Glucose (mg/dL) (75-99) mg/dL Plasma Lactic Acid Costa (0.7-2.0) mmol/L Total Creatine Kinase 29 L 27 L (30-135) U/L Albumin (3.5-5.0) g/dL Stool Occult Blood (Negative) 08/02/16 Range/Units 04:10 WBC (3.8-10.6) k/uL RBC (3.80-5.40) m/uL Hgb (11.4-16.0) gm/dL Hct (34.0-46.0) % RDW (11.5-15.5) % Plt Count (150-450) k/uL Neutrophils # (Manual) (1.3-7.7) k/uL Lymphocytes # (Manual) (1.0-4.8) k/uL Chloride 109 H (98-107) mmol/L Glucose 137 H (74-99) mg/dL POC Glucose (mg/dL) (75-99) mg/dL Plasma Lactic Acid Costa (0.7-2.0) mmol/L Total Creatine Kinase (30-135) U/L Albumin 2.9 L (3.5-5.0) g/dL Stool Occult Blood (Negative) Thrombosis Risk Factor Assmnt - DVT/VTE Prophylaxis DVT/VTE Prophylaxis: Mechanical Prophylaxis ordered - Choose All That Apply Any of the Below Risk Factors Present?: No Other Risk Factors: No Other congenital or acquired thrombophilia - If yes, enter type in comment: No Thrombosis Risk Factor Assessment Level: Very Low Risk Assessment and Plan Plan: 1. Neutropenic fever. Consult with Dr. Amaris londono. Patient is currently on cefepime. Blood cultures are in progress. 2. Acute myelogenous leukemia. Consult with Dr. Amaris londono. 3. 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 Patient is status post platelet and packed RBC transfusion. Patient has been started on Zarxio. Monitor counts daily. 4. History of breast cancer, adenocarcinoma of the colon, neuroendocrine carcinoma of the small bowel. 5. Occult blood stool positive with concern for acute GI bleed. Dr. Varner is on consult. No signs of GI bleed at this time. No immediate procedure planned. Monitor hemoglobin. 6. Diabetes mellitus type 2, insulin requiring. Patient is on Novolin 70/30 20 units twice daily at home. Patient currently on Humalog scale. 7. Hypertension. Continue Norvasc 5 mg twice daily. 8. Hyperlipidemia. Continue Zocor 20 mg at bedtime. 9. Hypothyroidism. Continue levothyroxine 112 g daily. 10. Vitamin D deficiency. Continue calcium and vitamin D supplement. 11. Gastrointestinal prophylaxis. Continue Protonix 40 mg IV daily. 12. DVT prophylaxis. Heparin as not started due to thrombocytopenia. ALAINA zuniga and SCDs. Patient will be admitted to the hospital for a minimum of 2 night stay. Discharge plan: to be determined Impression and plan of care have been directed as dictated by the signing physician. Frida Coughlin nurse practitioner acting as scribe for signing physician. Time with Patient: Greater than 30
[2016-08-02] MEDS: CHOLECALCIFEROL 1,000 UNIT TAB PO SCH (12:07)
[2016-08-02 12:32] LABS: Glucose,Whole Blood 97 mg/dL (75-99)
[2016-08-02] MEDS: INSULIN LISPRO (humaLOG) 300 UNIT/3 ML VIAL SQ SCH ×3 (14:19→19:41)
[2016-08-02] MEDS ORDERED: LEVOFLOXACIN 750MG-D5W PMX 750 MG in DEXTROSE/WATER 1 150ML.BAG IVPB SCH (15:00)
[2016-08-02] MEDS ORDERED: IV VANCOMYCIN PER PHARMACY 1 EACH MISC MISCELLANE PRN (15:32)
[2016-08-02 16:53] LABS: CH 29.7; CHCM 32.8; HCT 30.2 % (34.0-46.0); HDW 3.25; Large Platelets Flag Moderate; MCV 90.9 fL (80.0-100.0); Mean Platelet Volume 10.6; RBC 3.33 m/uL (3.80-5.40); WBC 2.7 k/uL (3.8-10.6)
[2016-08-02 17:53] LABS: Glucose,Whole Blood 129 mg/dL (75-99)
[2016-08-02 19:40] LABS: Glucose,Whole Blood 147 mg/dL (75-99)
[2016-08-02] MEDS: ATORVASTATIN 10 MG TAB PO SCH (19:41)
--- NOTE | 2016-08-02 19:52 | P.CONS ---
History of Present Illness - Reason for Consult Consult date: 08/02/16 - Chief Complaint Weakness - History of Present Illness 85-year-old female with a fascinating history of multiple cancers was recently hospitalized at the outside facility from July 02 through 2016. At the present time she had weakness and dizziness without evidence of anemia and received 3 units of packed red blood cells. Her EF was preserved and she was sent home. Now presents to our facility with significant generalized weakness. She was having evidence of fever significant anemia with a hemoglobin of 5.6 and a platelet count of 6. There is evidence of melena at the time of her admission and she was brought into the intensive care unit. Because of her fever and pancytopenia and buttocks were begun and the infectious diseases consultation was requested. He has noted she has a history of multiple cancers that includes original diagnosis of breast carcinoma in 2013. She was treated with Arimidex with lumpectomy and sentinel node biopsy. 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 After which she was having difficulties with significant and ongoing anemia as well as pancytopenia. 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 And she was initiated therapy with Dacogen on 07/13/2016 Now has evidence of ongoing gastrointestinal bleeding and is being seen by surgery as well as gastroenterology. Review of Systems HEENT:Denies headache or acute visual change. Denies sinus or mouth discomforts. Denies neck stiffness or pain. Denies significant oral cavity pain. No difficulty with swallowing but her mouth is dry Lungs: Chronic shortness of breath poor exercise tolerance but denies hemoptysis Cardiovascular: His ongoing shortness of breath denies significant chest pain though. Does not have orthopnea. But does have poor exercise tolerance and dyspnea with exertion, no syncope. Gastrointestinal:Denies nausea, vomiting, however is having some melena, no evidence of hematemesis or hematochezia. Musculoskeletal: denies significant myalgias or arthralgias. No new joint swelling. Denies new back pain. Skin: Denies new rash or lesions. No new ulcers or wounds are related.. Neuro: Denies headache or visual change. Significant generalized weakness no seizures Psychiatric:Denies anxiety or depression. 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 Retired. No experience. No travels. No tobacco history no significant history of alcohol use Smoking Status: Former smoker Past Alcohol Use History: None Reported Additional Past Alcohol Use History / Comment(s): Patient smoked a half a pack a day for 50 years and quit in 2007. She denies any alcohol or illegal drug use. She is and lives with her sister. She is quite active she does not have oxygen, nebulizer, CPAP. She does not need cane or walker. Past Drug Use History: None Reported - Past Family History Father Additional Family Medical History / Comment(s): Father at age 78 from lung cancer. Mother Additional Family Medical History / Comment(s): Mother at age 78 from brain hemorrhage. Brother(s) Additional Family Medical History / Comment(s): Patient has 6 siblings with medical problems including diabetes, hypertension, breast cancer. Daughter(s) Additional Family Medical History / Comment(s): She has one daughter that from breast cancer. Medications and Allergies Home Medications and Allergies Comment(s): Current Medications Acetaminophen (Tylenol Tab) 650 mg PO Q6HR PRN PRN Reason: Mild Pain or Fever > 100.5 Amlodipine Besylate (Norvasc) 5 mg PO BID [facility] Last Admin: 08/02/16 19:41 Dose: 5 mg Anastrozole (Arimidex) 1 mg PO DAILY [facility] Last Admin: 08/02/16 08:01 Dose: 1 mg Atorvastatin Calcium (Lipitor) 10 mg PO HS [facility] Last Admin: 02/12/17 19:41 Dose: 10 mg Calcium Carbonate/Glycine (Tums) 500 mg PO DAILY [facility] Last Admin: 08/02/16 08:00 Dose: 500 mg Cholecalciferol (Vitamin D3) 1,000 unit PO DAILY@1200 [facility] Last Admin: 08/02/16 12:07 Dose: 1,000 unit Filgrastim (Zarxio) 480 mcg SQ DAILY [facility] Last Admin: 08/02/16 08:30 Dose: 480 mcg Sodium Chloride (Saline 0.9%) 1,000 mls @ 20 mls/hr IV .Q24H [facility] Last Admin: 08/02/16 18:32 Dose: 20 mls/hr Sodium Chloride (Saline 0.9%) 1,000 mls @ 100 mls/hr IV .Q10H [facility] Last Admin: 08/02/16 12:08 Dose: 100 mls/hr Cefepime HCl 2 gm/ Sodium (Chloride) 50 mls @ 100 mls/hr IVPB Q12HR@0600,1800 [facility] Last Admin: 08/02/16 18:31 Dose: 100 mls/hr Vancomycin HCl 1,250 mg/ (Sodium Chloride) 250 mls @ 125 mls/hr IVPB Q24HR [facility] Insulin Human Lispro (Humalog) 0 unit SQ ACHS [facility] PRN Reason: Protocol Last Admin: 08/02/16 19:41 Dose: 1 unit Levothyroxine Sodium (Synthroid) 112 mcg PO DAILY@0630 [facility] Last Admin: 08/02/16 07:12 Dose: 112 mcg Miscellaneous Information (Magnesium Per Protocol) 1 each MISCELLANE DAILY PRN ; Protocol PRN Reason: Per Protocol Naloxone HCl (Narcan) 0.2 mg IV Q2M PRN PRN Reason: Opioid Reversal Pantoprazole Sodium (Protonix) 40 mg IV DAILY [facility] Last Admin: 08/02/16 08:05 Dose: 40 mg Home Medications Medication Instructions Recorded Confirmed Type Acetaminophen [Tylenol 8 Hour] 650 mg PO QID PRN 06/03/16 08/01/16 History Anastrozole [Arimidex] 1 mg PO DAILY 06/03/16 08/01/16 History Calcium Carbonate [Calcium] 600 mg PO DAILY 06/03/16 08/01/16 History Cholecalciferol [Vitamin D3] 1,000 unit PO DAILY 06/03/16 08/01/16 History Diphenoxylate HCl/Atropine 1 - 2 tab PO QID PRN 06/03/16 08/01/16 History [Lomotil] Levothyroxine Sodium [Synthroid] 112 mcg PO DAILY 06/03/16 08/01/16 History Simvastatin [Zocor] 20 mg PO HS 06/03/16 08/01/16 History Ubidecarenone [Co Q-10] 1 cap PO DAILY 06/03/16 08/01/16 History amLODIPine BESYLATE [Norvasc] 5 mg PO BID 06/03/16 08/01/16 History Insulin NPH Hum/Reg Insulin Hm 20 unit SQ AC-BID 08/01/16 08/01/16 History [NovoLIN 70-30 100 UNIT/ML VIAL] Psyllium Husk 100% [Metamucil] 6 gm PO DAILY PRN 08/01/16 08/01/16 History Allergies Allergy/AdvReac Type Severity Reaction Status Date / Time No Known Allergies Allergy Verified 08/01/16 13:24 Physical Exam Vitals: Vital Signs Temp Pulse Resp BP Pulse Ox 08/02/16 18:00 85 25 H 168/76 98 08/02/16 17:00 98.4 F 70 18 166/75 97 08/02/16 16:00 76 19 158/65 97 08/02/16 15:17 16 08/02/16 15:00 98.4 F 81 18 158/65 98 08/02/16 14:00 74 14 138/66 98 08/02/16 13:00 79 21 143/61 08/02/16 12:00 98.4 F 68 20 143/61 95 08/02/16 11:43 98.8 F 77 18 158/65 97 08/02/16 11:00 69 20 142/59 92 L 08/02/16 10:00 74 24 162/78 98 08/02/16 09:00 70 19 149/69 93 L 08/02/16 08:00 74 22 136/65 93 L 08/02/16 07:00 78 21 124/65 95 08/02/16 06:00 75 18 132/61 94 L 08/02/16 05:00 80 12 133/61 94 L 08/02/16 04:00 98.4 F 81 11 L 133/58 96 08/02/16 03:00 78 19 119/58 92 L 02/12/17 02:00 98.7 F 81 24 115/70 93 L 08/02/16 01:55 98.4 F 70 18 136/65 94 L 08/02/16 01:02 98.4 F 80 16 122/56 08/02/16 01:00 83 19 132/57 95 08/02/16 00:32 98.6 F 80 18 120/62 08/02/16 00:24 98.4 F 82 16 136/60 08/02/16 00:22 99.0 F 81 16 140/65 08/02/16 00:00 99.0 F 80 20 139/68 94 L 08/01/16 23:07 81 20 143/59 96 08/01/16 23:00 80 21 143/59 95 08/01/16 22:24 98.6 F 80 16 140/70 08/01/16 22:00 84 20 143/59 95 08/01/16 21:54 98.6 F 82 16 140/70 08/01/16 21:44 98.4 F 76 16 139/69 08/01/16 21:24 89 26 H 160/84 94 L 08/01/16 20:50 86 160/84 96 08/01/16 20:40 85 160/84 97 08/01/16 20:36 98.7 F 80 18 143/59 98 08/01/16 20:30 87 98 08/01/16 20:20 98.3 F 83 97 08/01/16 20:10 86 98 08/01/16 20:00 83 98 08/01/16 19:50 90 151/67 99 08/01/16 19:40 84 151/67 98 Intake and Output 08/02/16 08/02/16 08/02/16 06:59 14:59 22:59 Intake Total 1312 1420 970 Output Total 4 801 800 Balance 1308 619 170 Intake: IV 800 800 350 Sodium Chloride 0.9% 1, 800 800 350 000 ml @ 100 mls/hr IV . Q10H [facility] Rx#:[id number] Blood Product 512 620 620 Platelet Pheresis Acda2 202 Unit [id number] Rc As-1 Unit 310 [id number] Rc Pheresis As-3 Unit 310 [id number] Rc Pheresis As-3 Unit 0 310 [id number] Output: Urine 800 800 Urine/Stool Mix 4 1 Other: Voiding Method Bedside Commode # Bowel Movements 1 1 Weight 74.8 kg 85-year-old woman poor historian HEENT: Anicteric conjunctiva are pink and moist nasal mucosa grossly intact without significant lesions, there is no thrush. Neck: The neck is supple without significant lymphadenopathy or thyromegaly. Lungs: Good bilateral air entry without significant crackles or wheezing. There is no significant bronchial sounds. There is no egophony or dullness. Heart: Regular rate and rhythm with an audible S1-S2, no S3 no S4. There is no significant murmur click or rub, PMI was nondisplaced. Abdomen: Positive bowel sounds soft and nontender without palpable masses or organomegaly. There was no guarding or rebound. Extremities: The upper extremities have excellent pulses they are symmetric, scattered petechiae. No splinter hemorrhages were noted. The lower extremities are free from significant edema. The peripheral pulses were 2+ and symmetric. Neuro: Awake alert oriented to person place but does not have acute gross focal sensory motor deficits Results CBC & Chem 7: 08/02/16 16:42 08/02/16 04:10 Labs: Abnormal Lab Results - Last 24 Hours (Table) 08/01/16 08/01/16 08/02/16 Range/Units 18:49 23:29 04:10 WBC 1.4 L* (3.8-10.6) k/uL RBC 2.30 L (3.80-5.40) m/uL Hgb 6.8 L* (11.4-16.0) gm/dL Hct 20.4 L (34.0-46.0) % RDW 15.8 H (11.5-15.5) % Plt Count 17 L* D (150-450) k/uL Neutrophils # (Manual) 0.7 L (1.3-7.7) k/uL Lymphocytes # (Manual) 0.5 L (1.0-4.8) k/uL Chloride (98-107) mmol/L Glucose (74-99) mg/dL POC Glucose (mg/dL) (75-99) mg/dL Total Creatine Kinase 29 L 27 L (30-135) U/L Albumin (3.5-5.0) g/dL 08/02/16 08/02/16 08/02/16 Range/Units 04:10 16:42 17:51 WBC 2.7 L (3.8-10.6) k/uL RBC 3.33 L (3.80-5.40) m/uL Hgb 10.0 L D (11.4-16.0) gm/dL Hct 30.2 L (34.0-46.0) % RDW (11.5-15.5) % Plt Count 12 L* (150-450) k/uL Neutrophils # (Manual) (1.3-7.7) k/uL Lymphocytes # (Manual) (1.0-4.8) k/uL Chloride 109 H (98-107) mmol/L Glucose 137 H (74-99) mg/dL POC Glucose (mg/dL) 129 H (75-99) mg/dL Total Creatine Kinase (30-135) U/L Albumin 2.9 L (3.5-5.0) g/dL Microbiology - Last 24 Hours (Table) 08/01/16 15:35 Blood Culture Gram Stain - Preliminary Blood 08/01/16 15:35 Blood Culture - Preliminary Blood Laboratory Results WBC 2.7 k/uL (3.8-10.6) L 08/02/16 16:42 RBC 3.33 m/uL (3.80-5.40) L 08/02/16 16:42 Hgb 10.0 gm/dL (11.4-16.0) L D 08/02/16 16:42 Hct 30.2 % (34.0-46.0) L 08/02/16 16:42 MCV 90.9 fL (80.0-100.0) 08/02/16 16:42 MCH 30.0 pg (25.0-35.0) 08/02/16 16:42 MCHC 33.0 g/dL (31.0-37.0) 08/02/16 16:42 RDW 15.0 % (11.5-15.5) 08/02/16 16:42 Plt Count 12 k/uL (150-450) L* 08/02/16 16:42 Neutrophils % (Manual) 46.0 % 08/02/16 04:10 Band Neutrophils % 2.0 % 08/02/16 04:10 Lymphocytes % (Manual) 37.0 % 08/02/16 04:10 Monocytes % (Manual) 12.0 % 08/02/16 04:10 Metamyelocytes % 1.0 % 08/02/16 04:10 Myelocytes % 2.0 % 08/02/16 04:10 Neutrophils # (Manual) 0.7 k/uL (1.3-7.7) L 08/02/16 04:10 Lymphocytes # (Manual) 0.5 k/uL (1.0-4.8) L 08/02/16 04:10 Monocytes # (Manual) 0.2 k/uL (0-1.0) 08/02/16 04:10 Nucleated RBCs 0 /100 WBC (0-0) 08/02/16 04:10 Manual Slide Review Performed 08/02/16 04:10 Pathologist Review Cancelled 08/02/16 04:10 Poikilocytosis (manual Present 08/02/16 04:10 Anisocytosis Slight 08/01/16 12:16 Rouleaux Present 08/02/16 04:10 PT 11.1 sec (9.0-12.0) 08/01/16 12:10 INR 1.1 (<1.1) 08/01/16 12:10 APTT 22.4 sec (22.0-30.0) 08/01/16 12:10 Sodium 142 mmol/L (137-145) 08/02/16 04:10 Potassium 4.2 mmol/L (3.5-5.1) 08/02/16 04:10 Chloride 109 mmol/L (98-107) H 08/02/16 04:10 Carbon Dioxide 22 mmol/L (22-30) 08/02/16 04:10 Anion Gap 11 mmol/L 08/02/16 04:10 BUN 11 mg/dL (7-17) 08/02/16 04:10 Creatinine 0.70 mg/dL (0.52-1.04) 08/02/16 04:10 Est GFR (MDRD) Af Amer >60 (>60 ml/min/1.73 sqM) 08/02/16 04:10 Est GFR (MDRD) Non-Af >60 (>60 ml/min/1.73 sqM) 08/02/16 04:10 Glucose 137 mg/dL (74-99) H 08/02/16 04:10 POC Glucose (mg/dL) 147 mg/dL (75-99) H 08/02/16 19:38 POC Glu [employer] ID Susan Potts 08/02/16 19:38 Plasma Lactic Acid Costa 1.5 mmol/L (0.7-2.0) 08/02/16 04:10 Calcium 8.5 mg/dL (8.4-10.2) 08/02/16 04:10 Phosphorus 2.6 mg/dL (2.5-4.5) 08/02/16 04:10 Magnesium 1.9 mg/dL (1.6-2.3) 08/02/16 04:10 Total Bilirubin 0.7 mg/dL (0.2-1.3) 08/02/16 04:10 AST 16 U/L (14-36) 08/02/16 04:10 ALT 31 U/L (9-52) 08/02/16 04:10 Alkaline Phosphatase 56 U/L (38-126) 08/02/16 04:10 Total Creatine Kinase 27 U/L (30-135) L 08/01/16 23:29 CK-MB (CK-2) 0.4 ng/mL (0.0-2.4) 08/01/16 23:29 CK-MB (CK-2) Rel Index 1.5 08/01/16 23:29 Troponin I <0.012 ng/mL (0.000-0.034) 08/01/16 23:29 Total Protein 6.8 g/dL (6.3-8.2) 08/02/16 04:10 Albumin 2.9 g/dL (3.5-5.0) L 08/02/16 04:10 Cortisol 16 ug/dL 08/01/16 12:10 Urine Color Yellow 08/01/16 12:41 Urine Appearance Clear (Clear) 08/01/16 12:41 Urine pH 6.5 (5.0-8.0) 08/01/16 12:41 Ur Specific Seffner 1.019 (1.001-1.035) 08/01/16 12:41 Urine Protein Trace (Negative) H 08/01/16 12:41 Urine Glucose (UA) Negative (Negative) 08/01/16 12:41 Urine Ketones Negative (Negative) 08/01/16 12:41 Urine Blood Negative (Negative) 08/01/16 12:41 Urine Nitrate Negative (Negative) 08/01/16 12:41 Urine Bilirubin Negative (Negative) 08/01/16 12:41 Urine Urobilinogen <2.0 mg/dL (<2.0) 08/01/16 12:41 Ur Leukocyte Esterase Negative (Negative) 08/01/16 12:41 Stool Occult Blood Positive (Negative) H 08/01/16 15:32 Influenza Type A RNA Not Detected (Not Detectd) 08/01/16 11:40 Influenza Type B (PCR) Not Detected (Not Detectd) 08/01/16 11:40 Blood Type O Positive 08/01/16 12:10 Blood Type Recheck No 08/01/16 12:10 Antibody Screen NEGATIVE 08/01/16 12:10 Crossmatch See Detail 08/01/16 12:10 Transfuse Platelets 08/01/2016 08/01/16 15:31 Spec Expiration Date 08/04/2016 - 2310 08/01/16 12:10 Microbiology 08/01/16 12:10 Blood Blood Culture Gram Stain - Preliminary 08/01/16 12:10 Blood Blood Culture - Preliminary Gram Neg Bacilli 08/01/16 15:35 Blood Blood Culture Gram Stain - Preliminary 08/01/16 15:35 Blood Blood Culture - Preliminary 08/01/16 12:41 Urine,Voided Urine Culture - Final 08/01/16 12:10 Blood Blood Culture - Preliminary Chest x-ray: report reviewed (No distinct pneumonia) Assessment and Plan (1) Febrile neutropenia Narrative/Plan: 85-year-old female presents to hospital with severe weakness. Concerns to underlying sepsis Complicated by her history of acute myelogenous leukemia and pancytopenia with leukopenia. Antibiotic therapy with cefepime and vancomycin are being utilized at this time with a blood culture showing gram-negative monserrat as well as a gram-positive cocci. Await finalization the blood cultures however follow-up blood cultures have been requested to monitor her bacteremia. Patient is followed by her oncologist and filgrastim has been started. She is on the appropriate ICU bed. Albumin is low and will need to have further protein supplementation as she allows. Influenza testing was negative. Status: Acute (2) Acute myelogenous leukemia Status: Acute (3) Pancytopenia Status: Acute
[2016-08-03 04:32] LABS: Aty Lym Flag Slight; CH 29.8; CHCM 33.1; HCT 27.1 % (34.0-46.0); HDW 3.29; Immature Gran Flag Marked; Large Platelets Flag Marked; MCH 30.2 pg (25.0-35.0); MCHC 33.4 g/dL (31.0-37.0); MCV 90.4 fL (80.0-100.0); Mean Platelet Volume 10.5; WBC 2.9 k/uL (3.8-10.6); WBC (Perox) 3.09
[2016-08-03 04:45] LABS: ALT 28 U/L (9-52); AST 16 U/L (14-36); Alkaline Phosphatase 60 U/L (38-126); Anion Gap 9 mmol/L; Blood Urea Nitrogen 8 mg/dL (7-17); Calcium 8.7 mg/dL (8.4-10.2); Carbon Dioxide 24 mmol/L (22-30); Chloride 108 mmol/L (98-107); Glucose 105 mg/dL (74-99); Magnesium 2.1 mg/dL (1.6-2.3); Non-African American GFR(MDRD) >60 (>60 ml/min/1.73 sqM); Phosphorous 2.7 mg/dL (2.5-4.5); Potassium 3.7 mmol/L (3.5-5.1); Sodium 141 mmol/L (137-145); Total Bilirubin 0.7 mg/dL (0.2-1.3); Total Protein 7.1 g/dL (6.3-8.2)
[2016-08-03 05:24] LABS: Add Differential Manual Differential
[2016-08-03] MEDS ORDERED: Potassium Replacement Protocol 1 EACH MISC MISCELLANE PRN (05:26)
[2016-08-03 05:47] LABS: Band Neutrophils % 3.5 %; Metamyelocytes % 2.5 %; Myelocytes % 3.5 %; Nucleated Red Blood Cells 0 /100 WBC (0-0); Total Cells Counted 200
[2016-08-03 05:48] LABS: Manual Review Performed
[2016-08-03 05:52] LABS: Rouleaux Present
[2016-08-03] MEDS ORDERED: POTASSIUM CHLORIDE ER 20 MEQ TAB.ER PO SCH (06:00)
[2016-08-03] MEDS: SODIUM CHLORIDE 0.9% 1,000 ML IV SCH ×3 (06:27→17:48)
[2016-08-03] MEDS: LEVOTHYROXINE 112 MCG TAB PO SCH (06:28)
[2016-08-03] MEDS: CEFEPIME 2 GM in SODIUM CHLORIDE 0.9% 50 ML IVPB SCH ×2 (06:28→18:25)
--- NOTE | 2016-08-03 08:02 | XR ---
EXAMINATION TYPE: XR chest 1V DATE OF EXAM: 08/03/2016 6:48 AM HISTORY: Shortness of breath. REFERENCE: Previous study dated 08/02/2016. FINDINGS: The heart is mildly enlarged. There are increased interstitial markings. Pleural spaces are clear. Surgical clips project over the right hemithorax. IMPRESSION: 1. CARDIOMEGALY. 2. INTERSTITIAL CHANGE.
[2016-08-03] MEDS: INSULIN LISPRO (humaLOG) 300 UNIT/3 ML VIAL SQ SCH ×4 (08:08→20:44)
[2016-08-03] MEDS: PANTOPRAZOLE 40 MG/10 ML VIAL IV SCH (08:14)
[2016-08-03] MEDS: CALCIUM CARBONATE 500 MG CHEWABLE PO SCH (08:15)
[2016-08-03] MEDS: ANASTROZOLE 1 MG TAB PO SCH (08:15)
[2016-08-03] MEDS: amLODIPine 5 MG TAB PO SCH ×2 (08:15→20:59)
[2016-08-03] MEDS: FILGRASTIM-SNDZ 480 MCG/0.8 ML SYRINGE SQ SCH (08:33)
[2016-08-03] MEDS ORDERED: VANCOMYCIN 1,250 MG in SODIUM CHLORIDE 0.9% 250 ML IVPB SCH (09:00)
[2016-08-03] MEDS: CHOLECALCIFEROL 1,000 UNIT TAB PO SCH (14:04)
--- NOTE | 2016-08-03 16:03 | P.PN ---
Subjective Principal diagnosis: pancytopenia, neutropenic fever post chemo, AML, history of breast cancer, colon cancer, GI bleed and positive Hemoccult, diabetes, hypertension, hyperlipidemia and hypothyroidism. This is an 85-year-old female. Her primary care physician is Dr. Pride. She has a past medical history of diabetes mellitus type 2 insulin- requiring, hypertension, hyperlipidemia, hypothyroidism, breast cancer, colon cancer status post bowel resection, acute myelogenous leukemia, pancytopenia, vitamin D deficiency. Patient had a recent hospitalization at [facility] at which time she was admitted from July 02 through 2016. She was treated for anemia and was transfused with 3 units of packed RBCs. Her troponins were elevated 0.33 and this was thought to be due to the anemia. Her EF was 55-60% patient states that she noticed her vision was fuzzy the past 2 days when she got up in the morning and then that would clear in the next hour and a half to 2 hours. She also states that her sister didn't like the color of her skin or her lips and made her come into the hospital. She denies having any abdominal pain she denies any falls. She does have chronic diarrhea. She states her first bowel movement in the morning is usually formed and then her stools are loose throughout the day and she goes 5-6 times depending on what she eats. She denies having any lightheadedness or dizziness. She does receive outpatient transfusions in the last one was on July 24. Patient presented to [facility] emergency center. She was found to have a fever of 100.6, thrombocytopenia with white count of 1.3, hemoglobin 5.6 and platelet count 6. Troponin was negative. Influenza A and B by PCR not detected. Electrolytes, kidney and liver functions within normal limits. Urinalysis negative. CAT scan of the brain showed no acute process. Chest x-ray showed no acute process. Patient did have a bloody bowel movement while in the emergency center. Patient was admitted to the intensive care unit , consult with Dr. Salas requested for intensive care management and oncology consult placed. Consult with Dr. Varner for anemia. Blood cultures were obtained. She received 1 dose of Levaquin and vancomycin in the emergency center. She is currently on Cefepime. She is status post transfusion of platelets and packed RBCs. She has not required vasopressors. She has been seen by Dr. 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 CAT scan revealed inflammatory changes in the bowel and lung nodules. PET scan in June 2015 did not reveal any evidence of metastatic disease. 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 Due to severe anemia in April 2016 she underwent a bone marrow biopsy which was consistent with acute myelogenous leukemia. Patient decided to start Dacogen which was done on 07/13/2016 and completed 1 cycle on 07/17/2016. Patient is also followed by Dr. Salas for intensive care management. She has been seen by Dr. Varner for anemia. Occult stool was positive but no evidence of acute GI bleed. No procedures planned at this time. 08/03: no significant the drop in hemoglobin in the last 24 hours patient is more stable not having any active GI bleed, white blood cell hemoglobin and platelet remain low. Temperature is much better. Patient still on protocol and treatment for neutropenia. Patient be transfer out of the ICU today continue current management Will increase diet today. Objective - Vital Signs Vital signs: Vital Signs Temp 98.0 F 08/03/16 12:00 Pulse 87 08/03/16 14:00 Resp 19 08/03/16 14:00 BP 161/69 08/03/16 14:00 Pulse Ox 96 08/03/16 14:00 Intake & Output 08/02/16 08/03/16 08/03/16 18:59 06:59 18:59 Intake Total 2390 1200 800 Output Total 8450 395 7066 Balance 789 448 -300 Weight 78.2 kg 78.2 kg Intake: IV 1150 1200 800 Sodium Chloride 0.9% 1, 1150 1200 800 000 ml @ 100 mls/hr IV . Q10H [facility] Rx#:[id number] Blood Product 1240 Rc As-1 Unit 310 [id number] Rc Pheresis As-3 Unit 310 [id number] Output: Urine 9984 [id number] Urine/Stool Mix 1 2 Other: Voiding Method Bedside Commode Bedside Commode # Bowel Movements 1 1 1 - Constitutional General appearance: Present: cooperative, disheveled, mild distress. Absent: average body habitus, morbidly obese, no acute distress, obese, severe distress , thin - EENT Eyes: Present: anicteric sclerae, scleral icterus, normal appearance. Absent: abnormal pupil, disc margins sharp, edentulous, EOMI, PERRLA, fundus normal, photophobia, dentition normal, poor dentition, ptosis ENT: Present: hard of hearing, normal oropharynx, tonsillar swelling. Absent: hearing grossly normal, NA/AT, other, pharyngeal erythema, thrush, tonsillar exudates Ears: bilateral: normal, bulging - Neck Neck: Present: normal ROM. Absent: lymphadenopathy, other, rigidity, stridor, thyromegaly Carotids: bilateral: upstroke normal, upstroke delayed Thyroid: bilateral: normal size, enlarged - Respiratory Respiratory: bilateral: diminished, dullness, rales, rhonchi, wheezing - Cardiovascular Rhythm: regular Heart sounds: normal: S1, S2 Abnormal Heart Sounds: Present: systolic murmur - Gastrointestinal General gastrointestinal: Present: distended, hepatomegaly, normal bowel sounds , splenomegaly. Absent: absent bowel sounds, decreased bowel sounds, hyperactive bowel sounds, organomegaly, rigid, scaphoid, soft, tenderness, umbilical hernia, ventral hernia - Integumentary Integumentary: Present: calor, normal, pale, rash. Absent: cellulitis, cyanotic , decreased turgor, flushed, jaundiced, normal turgor, ulcer - Neurologic Neurologic: Present: CNII-XII intact. Absent: focal deficits - Musculoskeletal Musculoskeletal: Present: gait normal, generalized weakness, strength equal bilaterally. Absent: right sided weakness, left sided weakness - Psychiatric Psychiatric: Present: A&O x's 3, appropriate affect - Labs CBC & Chem 7: 08/03/16 04:04 08/03/16 04:04 Labs: Abnormal Lab Results - Last 24 Hours (Table) 08/02/16 08/02/16 08/02/16 Range/Units 16:42 17:51 19:38 WBC 2.7 L (3.8-10.6) k/uL RBC 3.33 L (3.80-5.40) m/uL Hgb 10.0 L D (11.4-16.0) gm/dL Hct 30.2 L (34.0-46.0) % Plt Count 12 L* (150-450) k/uL Lymphocytes # (Manual) (1.0-4.8) k/uL Chloride (98-107) mmol/L Glucose (74-99) mg/dL POC Glucose (mg/dL) 129 H 147 H (75-99) mg/dL Albumin (3.5-5.0) g/dL 08/03/16 08/03/16 Range/Units 04:04 04:04 WBC 2.9 L (3.8-10.6) k/uL RBC 3.00 L (3.80-5.40) m/uL Hgb 9.0 L (11.4-16.0) gm/dL Hct 27.1 L (34.0-46.0) % Plt Count 9 L* (150-450) k/uL Lymphocytes # (Manual) 0.8 L (1.0-4.8) k/uL Chloride 108 H (98-107) mmol/L Glucose 105 H (74-99) mg/dL POC Glucose (mg/dL) (75-99) mg/dL Albumin 3.0 L (3.5-5.0) g/dL Microbiology - Last 24 Hours (Table) 08/01/16 15:35 Blood Culture Gram Stain - Preliminary Blood Blood Culture - Preliminary Coagulase Negative Staph 08/01/16 15:35 Blood Culture - Preliminary Blood Assessment and Plan Plan: 1. Neutropenic fever. Consult with Dr. Glez appreciated. Patient is currently on cefepime. Blood cultures are in progress. 2. Acute myelogenous leukemia. Consult with Dr. Glez appreciated. 3. 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 Patient is status post platelet and packed RBC transfusion. Patient has been started on Zarxio. Monitor counts daily. 4. History of breast cancer, adenocarcinoma of the colon, neuroendocrine carcinoma of the small bowel. 5. Occult blood stool positive with concern for acute GI bleed. Dr. Varner is on consult. No signs of GI bleed at this time. No immediate procedure planned. Monitor hemoglobin. 6. Diabetes mellitus type 2, insulin requiring. Patient is on Novolin 70/30 20 units twice daily at home. Patient currently on Humalog scale. 7. Hypertension. Continue Norvasc 5 mg twice daily. 8. Hyperlipidemia. Continue Zocor 20 mg at bedtime. 9. Hypothyroidism. Continue levothyroxine 112 g daily. 10. Vitamin D deficiency. Continue calcium and vitamin D supplement. 11. Gastrointestinal prophylaxis. Continue Protonix 40 mg IV daily. 12. DVT prophylaxis. Heparin as not started due to thrombocytopenia. ALAINA zuniga and Azul.
[2016-08-03 17:27] LABS: Glucose,Whole Blood 138 mg/dL (75-99)
--- NOTE | 2016-08-03 17:30 | P.PN ---
Subjective Principal diagnosis: febrile neutropenia Pt seen in follow up today in the ICU, she is wanting to know when she can eat and what is going on. She denies fevers since admission, nausea or vomiting, hemoptysis, epistaxis, hematuria, she has never seen blood in her stool but she states she was told that there was when she came in to the hospital, she denies abd pain or painful BM, no dysuria or hematuria. Objective - Vital Signs Vital signs: Vital Signs Temp 98.4 F 08/03/16 15:11 Pulse 89 08/03/16 15:11 Resp 16 08/03/16 15:11 BP 180/70 08/03/16 15:11 Pulse Ox 96 08/03/16 15:11 Intake & Output 08/02/16 08/03/16 08/03/16 18:59 06:59 18:59 Intake Total 2390 1200 800 Output Total 8141 089 3308 Balance 789 448 -500 Weight 78.2 kg 78.2 kg Intake: IV 1150 1200 800 Sodium Chloride 0.9% 1, 1150 1200 800 000 ml @ 100 mls/hr IV . Q10H [facility] Rx#:[id number] Blood Product 1240 Rc As-1 Unit 310 [id number] Rc Pheresis As-3 Unit 310 [id number] Output: Urine 4807 534 5685 Urine/Stool Mix 1 2 Other: Voiding Method Bedside Commode Bedside Commode # Bowel Movements 1 1 1 - Constitutional General appearance: Present: average body habitus, cooperative, no acute distress - EENT ENT: Present: normal oropharynx - Respiratory Respiratory: bilateral: CTA - Cardiovascular Heart sounds: normal: S1, S2 - Peripheral edema leg Peripheral Edema: bilateral: Trace - Gastrointestinal General gastrointestinal: Present: normal bowel sounds, soft. Absent: absent bowel sounds, decreased bowel sounds, distended, hepatomegaly, hyperactive bowel sounds, organomegaly, rigid, scaphoid, splenomegaly, tenderness, umbilical hernia, ventral hernia - Neurologic Neurologic: Present: CNII-XII intact - Musculoskeletal Musculoskeletal: Present: strength equal bilaterally - Psychiatric Psychiatric: Present: A&O x's 3, appropriate affect, intact judgment & insight - Labs CBC & Chem 7: 08/03/16 04:04 08/03/16 04:04 Labs: Abnormal Lab Results - Last 24 Hours (Table) 02/06/0608/02/16 08/03/16 Range/Units 17:51 19:38 04:04 WBC (3.8-10.6) k/uL RBC (3.80-5.40) m/uL Hgb (11.4-16.0) gm/dL Hct (34.0-46.0) % Plt Count (150-450) k/uL Lymphocytes # (Manual) (1.0-4.8) k/uL Chloride 108 H (98-107) mmol/L Glucose 105 H (74-99) mg/dL POC Glucose (mg/dL) 129 H 147 H (75-99) mg/dL Albumin 3.0 L (3.5-5.0) g/dL 08/03/16 Range/Units 04:04 WBC 2.9 L (3.8-10.6) k/uL RBC 3.00 L (3.80-5.40) m/uL Hgb 9.0 L (11.4-16.0) gm/dL Hct 27.1 L (34.0-46.0) % Plt Count 9 L* (150-450) k/uL Lymphocytes # (Manual) 0.8 L (1.0-4.8) k/uL Chloride (98-107) mmol/L Glucose (74-99) mg/dL POC Glucose (mg/dL) (75-99) mg/dL Albumin (3.5-5.0) g/dL Microbiology - Last 24 Hours (Table) 08/01/16 15:35 Blood Culture Gram Stain - Preliminary Blood Blood Culture - Preliminary Coagulase Negative Staph 08/01/16 15:35 Blood Culture - Preliminary Blood Assessment and Plan (1) Acute myelogenous leukemia Narrative/Plan: treatment will be on hold until resolution of her current medical conditions. Status: Chronic (2) Febrile neutropenia Narrative/Plan: Cont GCS-F for now, labs daily. Cultures are positive, ID following and adjusting abx as appropriate. Status: Acute (3) Pancytopenia Narrative/Plan: Pancytopenia is due to chemotherapy Pt has had PRBCs x 4 units with appropriate increase in Hgb Platelets ordered for today Cont GCSF Labs daily Status: Acute
--- NOTE | 2016-08-03 18:08 | PN ---
Alla is an 85-year-old female, seen and evaluated in the ICU. Patient still has some dark stool, but severity of bleeding is slightly better. Patient hemoglobin is marginal, but stable. The patient is to go under 1 unit of packed RBCs. General surgery is following. She is more awake and alert, breathing more comfortably. Denies any chest pain. White cell count is slowly improving. Her last set of vitals include blood pressure is 160/70, respiratory rate 20, pulse 87, temperature 98, sating 96% on 2 liters oxygen. HEENT: Unremarkable. NECK: Supple. LUNGS: Good air entry bilaterally without significant rales, rhonchi or rub. HEART: Regular rate and rhythm. S1 and S2 audible. ABDOMEN: Soft. No rebound or rigidity. EXTREMITIES: +1. Her chest x-ray performed in the ICU earlier this morning reviewed and compared with the prior x-ray showed prominent interstitial lung with cardiomegaly. No obvious infiltrate has been seen. The patient is being evaluated by ID services related to febrile neutropenia and positive blood culture for Gram-positive as well. Last set of vitals include culture results and report are reviewed. Blood culture for 08/01 is positive for E. coli. Urine culture; however, has been no growth, repeat blood culture was positive for coag negative Staph. Current medications are reviewed which include: 1. Tylenol with Codeine. 2. Norvasc. 3. Arimidex. 4. Lipitor./ 5. Calcium. 6. Cefepime. 7. Cholecalciferol. 8. Synthroid. 9. K-Mag. 10. Phos replacement protocol. 11. Vancomycin. Last chest x-ray performed at reviewed and compared to prior x-ray. IMPRESSION: 1. Febrile neutropenia and severe sepsis, positive blood cultures, 2. Acute gastrointestinal bleed related to pancytopenia coagulopathy, likely and post chemotherapy. 3. Recent leukemia. Plan is to continue antibiotics. Continue supportive care. Follow clinical course closely. Awaiting further evaluation by general surgery for endoscopy. Will follow.
--- NOTE | 2016-08-03 18:44 | P.PN ---
Subjective Principal diagnosis: Weakness 85-year-old female with a fascinating history of multiple cancers was recently hospitalized at the outside facility from July 02 through 2016. At the present time she had weakness and dizziness without evidence of anemia and received 3 units of packed red blood cells. Her EF was preserved and she was sent home. Now presents to our facility with significant generalized weakness. She was having evidence of fever significant anemia with a hemoglobin of 5.6 and a platelet count of 6. There is evidence of melena at the time of her admission and she was brought into the intensive care unit. Because of her fever and pancytopenia and buttocks were begun and the infectious diseases consultation was requested. As noted she has a history of multiple cancers that includes original diagnosis of breast carcinoma in 2013. She was treated with Arimidex with lumpectomy and sentinel node biopsy. 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 After which she was having difficulties with significant and ongoing anemia as well as pancytopenia. 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 And she was initiated therapy with Dacogen on 07/13/2016 Now has evidence of ongoing gastrointestinal bleeding and is being seen by surgery as well as gastroenterology. Feeling better today. Moved out of the ICU. Is wondering when she gets to go home. Objective - Vital Signs Vital signs: Vital Signs Temp 98.4 F 08/03/16 15:11 Pulse 89 08/03/16 15:11 Resp 16 08/03/16 15:11 BP 180/70 08/03/16 15:11 Pulse Ox 96 08/03/16 15:11 Intake & Output 08/02/16 08/03/16 08/03/16 18:59 06:59 18:59 Intake Total 2390 1200 800 Output Total 5299 450 4360 Balance 789 448 -500 Weight 78.2 kg 78.2 kg Intake: IV 1150 1200 800 Sodium Chloride 0.9% 1, 1150 1200 800 000 ml @ 100 mls/hr IV . Q10H [facility] Rx#:[id number] Blood Product 1240 Rc As-1 Unit 310 [id number] Rc Pheresis As-3 Unit 310 [id number] Output: Urine 8271 [id number] Urine/Stool Mix 1 2 Other: Voiding Method Bedside Commode Bedside Commode # Bowel Movements 1 1 1 - Exam 85-year-old woman poor historian HEENT: Anicteric conjunctiva are pink and moist nasal mucosa grossly intact without significant lesions, there is no thrush. Neck: The neck is supple without significant lymphadenopathy or thyromegaly. Lungs: Good bilateral air entry without significant crackles or wheezing. There is no significant bronchial sounds. There is no egophony or dullness. Heart: Regular rate and rhythm with an audible S1-S2, no S3 no S4. There is no significant murmur click or rub, PMI was nondisplaced. Abdomen: Positive bowel sounds soft and nontender without palpable masses or organomegaly. There was no guarding or rebound. Extremities: The upper extremities have excellent pulses they are symmetric, scattered petechiae. No splinter hemorrhages were noted. The lower extremities are free from significant edema. The peripheral pulses were 2+ and symmetric. Neuro: Awake alert oriented to person place but does not have acute gross focal sensory motor deficits - Labs CBC & Chem 7: 08/03/16 04:04 08/03/16 04:04 Labs: Abnormal Lab Results - Last 24 Hours (Table) 08/02/16 08/03/16 08/03/16 Range/Units 19:38 04:04 04:04 WBC 2.9 L (3.8-10.6) k/uL RBC 3.00 L (3.80-5.40) m/uL Hgb 9.0 L (11.4-16.0) gm/dL Hct 27.1 L (34.0-46.0) % Plt Count 9 L* (150-450) k/uL Lymphocytes # (Manual) 0.8 L (1.0-4.8) k/uL Chloride 108 H (98-107) mmol/L Glucose 105 H (74-99) mg/dL POC Glucose (mg/dL) 147 H (75-99) mg/dL Albumin 3.0 L (3.5-5.0) g/dL 08/03/16 Range/Units 17:15 WBC (3.8-10.6) k/uL RBC (3.80-5.40) m/uL Hgb (11.4-16.0) gm/dL Hct (34.0-46.0) % Plt Count (150-450) k/uL Lymphocytes # (Manual) (1.0-4.8) k/uL Chloride (98-107) mmol/L Glucose (74-99) mg/dL POC Glucose (mg/dL) 138 H (75-99) mg/dL Albumin (3.5-5.0) g/dL Microbiology - Last 24 Hours (Table) 08/01/16 15:35 Blood Culture Gram Stain - Preliminary Blood Blood Culture - Preliminary Coagulase Negative Staph 08/01/16 15:35 Blood Culture - Preliminary Blood Laboratory Results WBC 2.9 k/uL (3.8-10.6) L 08/03/16 04:04 RBC 3.00 m/uL (3.80-5.40) L 08/03/16 04:04 Hgb 9.0 gm/dL (11.4-16.0) L 08/03/16 04:04 Hct 27.1 % (34.0-46.0) L 08/03/16 04:04 MCV 90.4 fL (80.0-100.0) 08/03/16 04:04 MCH 30.2 pg (25.0-35.0) 08/03/16 04:04 MCHC 33.4 g/dL (31.0-37.0) 08/03/16 04:04 RDW 15.0 % (11.5-15.5) 08/03/16 04:04 Plt Count 9 k/uL (150-450) L* 08/03/16 04:04 Neutrophils % (Manual) 59.0 % 08/03/16 04:04 Band Neutrophils % 3.5 % 08/03/16 04:04 Lymphocytes % (Manual) 27.0 % 08/03/16 04:04 Monocytes % (Manual) 3.0 % 08/03/16 04:04 Eosinophils % (Manual) 1.5 % 08/03/16 04:04 Metamyelocytes % 2.5 % 08/03/16 04:04 Myelocytes % 3.5 % 08/03/16 04:04 Neutrophils # (Manual) 1.8 k/uL (1.3-7.7) 08/03/16 04:04 Lymphocytes # (Manual) 0.8 k/uL (1.0-4.8) L 08/03/16 04:04 Monocytes # (Manual) 0.1 k/uL (0-1.0) 08/03/16 04:04 Eosinophils # (Manual) 0.0 k/uL (0-0.7) 08/03/16 04:04 Nucleated RBCs 0 /100 WBC (0-0) 08/03/16 04:04 Manual Slide Review Performed 08/03/16 04:04 Pathologist Review Cancelled 08/02/16 04:10 Poikilocytosis (manual Present 08/02/16 04:10 Anisocytosis Slight 08/01/16 12:16 Rouleaux Present 08/03/16 04:04 PT 11.1 sec (9.0-12.0) 08/01/16 12:10 INR 1.1 (<1.1) 08/01/16 12:10 APTT 22.4 sec (22.0-30.0) 08/01/16 12:10 Sodium 141 mmol/L (137-145) 08/03/16 04:04 Potassium 3.7 mmol/L (3.5-5.1) 08/03/16 04:04 Chloride 108 mmol/L (98-107) H 08/03/16 04:04 Carbon Dioxide 24 mmol/L (22-30) 08/03/16 04:04 Anion Gap 9 mmol/L 08/03/16 04:04 BUN 8 mg/dL (7-17) 08/03/16 04:04 Creatinine 0.70 mg/dL (0.52-1.04) 08/03/16 04:04 Est GFR (MDRD) Af Amer >60 (>60 ml/min/1.73 sqM) 08/03/16 04:04 Est GFR (MDRD) Non-Af >60 (>60 ml/min/1.73 sqM) 08/03/16 04:04 Glucose 105 mg/dL (74-99) H 08/03/16 04:04 POC Glucose (mg/dL) 138 mg/dL (75-99) H 08/03/16 17:15 POC Glu Sanitation Director Cydney Botello M 08/03/16 17:15 Plasma Lactic Acid Costa 1.5 mmol/L (0.7-2.0) 08/02/16 04:10 Calcium 8.7 mg/dL (8.4-10.2) 08/03/16 04:04 Phosphorus 2.7 mg/dL (2.5-4.5) 08/03/16 04:04 Magnesium 2.1 mg/dL (1.6-2.3) 08/03/16 04:04 Total Bilirubin 0.7 mg/dL (0.2-1.3) 08/03/16 04:04 AST 16 U/L (14-36) 08/03/16 04:04 ALT 28 U/L (9-52) 08/03/16 04:04 Alkaline Phosphatase 60 U/L (38-126) 08/03/16 04:04 Total Creatine Kinase 27 U/L (30-135) L 08/01/16 23:29 CK-MB (CK-2) 0.4 ng/mL (0.0-2.4) 08/01/16 23:29 CK-MB (CK-2) Rel Index 1.5 08/01/16 23:29 Troponin I <0.012 ng/mL (0.000-0.034) 08/01/16 23:29 Total Protein 7.1 g/dL (6.3-8.2) 08/03/16 04:04 Albumin 3.0 g/dL (3.5-5.0) L 08/03/16 04:04 Cortisol 16 ug/dL 08/01/16 12:10 Urine Color Yellow 08/01/16 12:41 Urine Appearance Clear (Clear) 08/01/16 12:41 Urine pH 6.5 (5.0-8.0) 08/01/16 12:41 Ur Specific Sullivan 1.019 (1.001-1.035) 08/01/16 12:41 Urine Protein Trace (Negative) H 08/01/16 12:41 Urine Glucose (UA) Negative (Negative) 08/01/16 12:41 Urine Ketones Negative (Negative) 08/01/16 12:41 Urine Blood Negative (Negative) 08/01/16 12:41 Urine Nitrate Negative (Negative) 08/01/16 12:41 Urine Bilirubin Negative (Negative) 08/01/16 12:41 Urine Urobilinogen <2.0 mg/dL (<2.0) 08/01/16 12:41 Ur Leukocyte Esterase Negative (Negative) 08/01/16 12:41 Stool Occult Blood Positive (Negative) H 08/01/16 15:32 Influenza Type A RNA Not Detected (Not Detectd) 08/01/16 11:40 Influenza Type B (PCR) Not Detected (Not Detectd) 08/01/16 11:40 Blood Type O Positive 08/01/16 12:10 Blood Type Recheck No 08/01/16 12:10 Antibody Screen NEGATIVE 08/01/16 12:10 Crossmatch See Detail 08/01/16 12:10 Transfuse Platelets 08/03/16 08/03/16 08:48 Spec Expiration Date 08/04/2016 - 0 08/01/16 12:10 Microbiology 08/01/16 12:10 Blood Blood Culture Gram Stain - Final 08/01/16 12:10 Blood Blood Culture - Final Escherichia coli 08/01/16 15:35 Blood Blood Culture Gram Stain - Preliminary 08/01/16 15:35 Blood Blood Culture - Preliminary Coagulase Negative Staph 08/01/16 15:35 Blood Blood Culture - Preliminary 08/01/16 12:41 Urine,Voided Urine Culture - Final 08/01/16 12:10 Blood Blood Culture - Preliminary Assessment and Plan (1) Febrile neutropenia Narrative/Plan: 85-year-old female presents to hospital with severe weakness. Concerns to underlying sepsis Complicated by her history of acute myelogenous leukemia and pancytopenia with leukopenia. Antibiotic therapy with cefepime and vancomycin are being utilized at this time with a blood culture showing gram-negative monserrat as well as a gram-positive cocci. The cultures have not been finalized. The gram-negative monserrat as E. coli and the gram positive for coagulase-negative staph. Of note the coagulase-negative staph is into 2 cultures drawn the same moment and comments as only 1 culture. Patient is followed by her oncologist and filgrastim has been started. Albumin is low and will need to have further protein supplementation as she allows. Influenza testing was negative. Consequently the vancomycin therapy is discontinued. Cefepime is being utilized given her current situation and is adequate for the current pathogen. She's improved and ready for discharge to home. She may complete a course of ciprofloxacin for 14 days for her gram-negative bacteremia and sepsis. Status: Acute (2) Acute myelogenous leukemia Status: Chronic (3) Pancytopenia Status: Acute
[2016-08-03 20:41] LABS: Glucose,Whole Blood 116 mg/dL (75-99)
[2016-08-03] MEDS: ATORVASTATIN 10 MG TAB PO SCH (20:59)
[2016-08-03] MEDS: ACETAMINOPHEN TAB 325 MG TAB PO PRN (21:01)
[2016-08-04] MEDS: CEFEPIME 2 GM in SODIUM CHLORIDE 0.9% 50 ML IVPB SCH ×2 (04:56→17:50)
[2016-08-04 07:13] LABS: Glucose,Whole Blood 109 mg/dL (75-99)
[2016-08-04] MEDS: SODIUM CHLORIDE 0.9% 1,000 ML IV SCH ×3 (07:33→23:04)
[2016-08-04] MEDS ORDERED: VANCOMYCIN TROUGH DUE 1 EACH MISC MISCELLANE ONE (08:00)
[2016-08-04] MEDS: INSULIN LISPRO (humaLOG) 300 UNIT/3 ML VIAL SQ SCH ×4 (08:43→21:11)
[2016-08-04] MEDS: CALCIUM CARBONATE 500 MG CHEWABLE PO SCH (08:52)
[2016-08-04] MEDS: ANASTROZOLE 1 MG TAB PO SCH (08:52)
[2016-08-04] MEDS: amLODIPine 5 MG TAB PO SCH ×2 (08:52→21:16)
[2016-08-04] MEDS: PANTOPRAZOLE 40 MG/10 ML VIAL IV SCH (08:53)
[2016-08-04] MEDS: CHOLECALCIFEROL 1,000 UNIT TAB PO SCH (08:53)
[2016-08-04 09:48] LABS: CH 29.7; CHCM 32.8; HCT 27.9 % (34.0-46.0); HDW 3.22; HGB 9.3 gm/dL (11.4-16.0); Immature Gran Flag Marked; Large Platelets Flag Slight; MCH 30.4 pg (25.0-35.0); MCHC 33.4 g/dL (31.0-37.0); Mean Platelet Volume 10.2; RBC 3.06 m/uL (3.80-5.40); WBC 6.7 k/uL (3.8-10.6); WBC (Perox) 6.62
[2016-08-04] MEDS: FILGRASTIM-SNDZ 480 MCG/0.8 ML SYRINGE SQ SCH (10:07)
[2016-08-04 10:10] LABS: ALT 27 U/L (9-52); AST 20 U/L (14-36); Alkaline Phosphatase 72 U/L (38-126); Anion Gap 13 mmol/L; Blood Urea Nitrogen 9 mg/dL (7-17); Calcium 8.9 mg/dL (8.4-10.2); Carbon Dioxide 21 mmol/L (22-30); Chloride 110 mmol/L (98-107); Glucose 168 mg/dL (74-99); Magnesium 1.9 mg/dL (1.6-2.3); Non-African American GFR(MDRD) >60 (>60 ml/min/1.73 sqM); Phosphorous 2.6 mg/dL (2.5-4.5); Potassium 4.3 mmol/L (3.5-5.1); Sodium 144 mmol/L (137-145); Total Bilirubin 0.6 mg/dL (0.2-1.3); Total Protein 7.7 g/dL (6.3-8.2)
[2016-08-04 10:39] LABS: Add Differential Manual Differential
[2016-08-04 10:45] LABS: Nucleated Red Blood Cells 0 /100 WBC (0-0); Total Cells Counted 200
[2016-08-04 10:46] LABS: Manual Review Performed
[2016-08-04 11:56] LABS: Glucose,Whole Blood 95 mg/dL (75-99)
[2016-08-04 17:26] LABS: Glucose,Whole Blood 114 mg/dL (75-99)
[2016-08-04 20:08] LABS: Glucose,Whole Blood 107 mg/dL (75-99)
[2016-08-04] MEDS: ATORVASTATIN 10 MG TAB PO SCH (21:16)
--- NOTE | 2016-08-04 23:19 | P.PN ---
Subjective Principal diagnosis: Weakness 85-year-old female with a fascinating history of multiple cancers was recently hospitalized at the outside facility from July 02 through 2016. At the present time she had weakness and dizziness without evidence of anemia and received 3 units of packed red blood cells. Her EF was preserved and she was sent home. Now presents to our facility with significant generalized weakness. She was having evidence of fever significant anemia with a hemoglobin of 5.6 and a platelet count of 6. There is evidence of melena at the time of her admission and she was brought into the intensive care unit. Because of her fever and pancytopenia and buttocks were begun and the infectious diseases consultation was requested. As noted she has a history of multiple cancers that includes original diagnosis of breast carcinoma in 2013. She was treated with Arimidex with lumpectomy and sentinel node biopsy. 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 After which she was having difficulties with significant and ongoing anemia as well as pancytopenia. 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 And she was initiated therapy with Dacogen on 07/13/2016 Had evidence of ongoing gastrointestinal bleeding and is being seen by surgery as well as gastroenterology. Feeling better , out of the ICU. Is wondering when she gets to go home. Objective - Vital Signs Vital signs: Vital Signs Temp 98.2 F 08/04/16 22:47 Pulse 77 08/04/16 22:47 Resp 17 08/04/16 22:47 BP 162/70 08/04/16 22:47 Pulse Ox 98 08/04/16 22:47 Intake & Output 08/04/16 08/04/16 08/05/16 06:59 18:59 06:59 Intake Total 540 800 287 Balance 540 800 287 Weight 78.2 kg Intake: IV 800 Sodium Chloride 0.9% 1, 800 000 ml @ 100 mls/hr IV . Q10H [facility] Rx#:[id number] Oral 340 Blood Product 200 0 287 Platelet Pheresis Acda2 0 287 Unit [id number] Platelet Pheresis Acda2 200 Unit [id number] Other: Voiding Method Bedside Commode # Voids 2 2 3 # Bowel Movements 1 - Exam 85-year-old woman poor historian HEENT: Anicteric conjunctiva are pink and moist nasal mucosa grossly intact without significant lesions, there is no thrush.edentulous Neck: The neck is supple without significant lymphadenopathy or thyromegaly. Lungs: Good bilateral air entry without significant crackles or wheezing. There is no significant bronchial sounds. There is no egophony or dullness. Heart: Regular rate and rhythm with an audible S1-S2, no S3 no S4. There is no significant murmur click or rub, PMI was nondisplaced. Abdomen: Positive bowel sounds soft and nontender without palpable masses or organomegaly. There was no guarding or rebound. Extremities: The upper extremities have excellent pulses they are symmetric, scattered petechiae. No splinter hemorrhages were noted. The lower extremities are free from significant edema. The peripheral pulses were 2+ and symmetric. Neuro: Awake alert oriented to person place and time does not have acute gross focal sensory motor deficits - Labs CBC & Chem 7: 08/04/16 09:11 08/04/16 09:11 Labs: Abnormal Lab Results - Last 24 Hours (Table) 08/04/16 08/04/16 08/04/16 Range/Units 07:00 09:11 09:11 RBC 3.06 L (3.80-5.40) m/uL Hgb 9.3 L (11.4-16.0) gm/dL Hct 27.9 L (34.0-46.0) % Plt Count 17 L* D (150-450) k/uL Lymphocytes # (Manual) 0.7 L (1.0-4.8) k/uL Chloride 110 H (98-107) mmol/L Carbon Dioxide 21 L (22-30) mmol/L Glucose 168 H (74-99) mg/dL POC Glucose (mg/dL) 109 H (75-99) mg/dL Albumin 3.3 L (3.5-5.0) g/dL 08/04/16 08/04/16 Range/Units 17:15 20:05 RBC (3.80-5.40) m/uL Hgb (11.4-16.0) gm/dL Hct (34.0-46.0) % Plt Count (150-450) k/uL Lymphocytes # (Manual) (1.0-4.8) k/uL Chloride (98-107) mmol/L Carbon Dioxide (22-30) mmol/L Glucose (74-99) mg/dL POC Glucose (mg/dL) 114 H 107 H (75-99) mg/dL Albumin (3.5-5.0) g/dL Microbiology - Last 24 Hours (Table) 08/02/16 16:42 Blood Culture - Preliminary Blood No Growth after 48 hours 08/02/16 16:43 Blood Culture - Preliminary Blood No Growth after 48 hours 08/01/16 15:35 Blood Culture Gram Stain - Preliminary Blood Blood Culture - Preliminary Coagulase Negative Staph Laboratory Results WBC 6.7 k/uL (3.8-10.6) 08/04/16 09:11 RBC 3.06 m/uL (3.80-5.40) L 08/04/16 09:11 Hgb 9.3 gm/dL (11.4-16.0) L 08/04/16 09:11 Hct 27.9 % (34.0-46.0) L 08/04/16 09:11 MCV 91.0 fL (80.0-100.0) 08/04/16 09:11 MCH 30.4 pg (25.0-35.0) 08/04/16 09:11 MCHC 33.4 g/dL (31.0-37.0) 08/04/16 09:11 RDW 15.0 % (11.5-15.5) 08/04/16 09:11 Plt Count 17 k/uL (150-450) L* D 08/04/16 09:11 Neutrophils % (Manual) 74.5 % 08/04/16 09:11 Band Neutrophils % 7.0 % 08/04/16 09:11 Lymphocytes % (Manual) 10.5 % 08/04/16 09:11 Monocytes % (Manual) 3.5 % 08/04/16 09:11 Eosinophils % (Manual) 2.0 % 08/04/16 09:11 Basophils % (Manual) 0.5 % 08/04/16 09:11 Metamyelocytes % 1.0 % 08/04/16 09:11 Myelocytes % 3.5 % 08/03/16 04:04 Blast Cells % 1.0 08/04/16 09:11 Neutrophils # (Manual) 5.5 k/uL (1.3-7.7) 08/04/16 09:11 Lymphocytes # (Manual) 0.7 k/uL (1.0-4.8) L 08/04/16 09:11 Monocytes # (Manual) 0.2 k/uL (0-1.0) 08/04/16 09:11 Eosinophils # (Manual) 0.1 k/uL (0-0.7) 08/04/16 09:11 Basophils # (Manual) 0.0 k/uL (0-0.2) 08/04/16 09:11 Nucleated RBCs 0 /100 WBC (0-0) 08/04/16 09:11 Manual Slide Review Performed 08/04/16 09:11 Pathologist Review Cancelled 08/02/16 04:10 Poikilocytosis (manual Present 08/02/16 04:10 Anisocytosis Slight 08/01/16 12:16 Rouleaux Present 08/03/16 04:04 PT 11.1 sec (9.0-12.0) 08/01/16 12:10 INR 1.1 (<1.1) 08/01/16 12:10 APTT 22.4 sec (22.0-30.0) 08/01/16 12:10 Sodium 144 mmol/L (137-145) 08/04/16 09:11 Potassium 4.3 mmol/L (3.5-5.1) 08/04/16 09:11 Chloride 110 mmol/L (98-107) H 08/04/16 09:11 Carbon Dioxide 21 mmol/L (22-30) L 08/04/16 09:11 Anion Gap 13 mmol/L 08/04/16 09:11 BUN 9 mg/dL (7-17) 08/04/16 09:11 Creatinine 0.76 mg/dL (0.52-1.04) 08/04/16 09:11 Est GFR (MDRD) Af Amer >60 (>60 ml/min/1.73 sqM) 08/04/16 09:11 Est GFR (MDRD) Non-Af >60 (>60 ml/min/1.73 sqM) 08/04/16 09:11 Glucose 168 mg/dL (74-99) H 08/04/16 09:11 POC Glucose (mg/dL) 107 mg/dL (75-99) H 08/04/16 20:05 POC Glu Farmworker ID Ary Bass 08/04/16 20:05 Plasma Lactic Acid Costa 1.5 mmol/L (0.7-2.0) 08/02/16 04:10 Calcium 8.9 mg/dL (8.4-10.2) 08/04/16 09:11 Phosphorus 2.6 mg/dL (2.5-4.5) 08/04/16 09:11 Magnesium 1.9 mg/dL (1.6-2.3) 08/04/16 09:11 Total Bilirubin 0.6 mg/dL (0.2-1.3) 08/04/16 09:11 AST 20 U/L (14-36) 08/04/16 09:11 ALT 27 U/L (9-52) 08/04/16 09:11 Alkaline Phosphatase 72 U/L (38-126) 08/04/16 09:11 Total Creatine Kinase 27 U/L (30-135) L 08/01/16 23:29 CK-MB (CK-2) 0.4 ng/mL (0.0-2.4) 08/01/16 23:29 CK-MB (CK-2) Rel Index 1.5 08/01/16 23:29 Troponin I <0.012 ng/mL (0.000-0.034) 08/01/16 23:29 Total Protein 7.7 g/dL (6.3-8.2) 08/04/16 09:11 Albumin 3.3 g/dL (3.5-5.0) L 08/04/16 09:11 Cortisol 16 ug/dL 08/01/16 12:10 Urine Color Yellow 08/01/16 12:41 Urine Appearance Clear (Clear) 08/01/16 12:41 Urine pH 6.5 (5.0-8.0) 08/01/16 12:41 Ur Specific [place]on 1.019 (1.001-1.035) 08/01/16 12:41 Urine Protein Trace (Negative) H 08/01/16 12:41 Urine Glucose (UA) Negative (Negative) 08/01/16 12:41 Urine Ketones Negative (Negative) 08/01/16 12:41 Urine Blood Negative (Negative) 08/01/16 12:41 Urine Nitrate Negative (Negative) 08/01/16 12:41 Urine Bilirubin Negative (Negative) 08/01/16 12:41 Urine Urobilinogen <2.0 mg/dL (<2.0) 08/01/16 12:41 Ur Leukocyte Esterase Negative (Negative) 08/01/16 12:41 Stool Occult Blood Positive (Negative) H 08/01/16 15:32 Influenza Type A RNA Not Detected (Not Detectd) 08/01/16 11:40 Influenza Type B (PCR) Not Detected (Not Detectd) 08/01/16 11:40 Blood Type O Positive 08/04/16 13:23 Blood Type Recheck No 08/04/16 13:23 Antibody Screen POSITIVE 08/04/16 13:23 Antibody Identification Anti-E 08/04/16 13:23 Direct Antiglob Test Positive 08/04/16 13:23 Crossmatch See Detail 08/01/16 12:10 Transfuse Platelets 08/04/2016 08/04/16 09:17 Spec Expiration Date 08/07/2016 - 23208/04/16 13:23 Microbiology 08/02/16 16:42 Blood Blood Culture - Preliminary No Growth after 48 hours 08/02/16 16:43 Blood Blood Culture - Preliminary No Growth after 48 hours 08/01/16 15:35 Blood Blood Culture Gram Stain - Preliminary 08/01/16 15:35 Blood Blood Culture - Preliminary Coagulase Negative Staph 08/01/16 12:10 Blood Blood Culture Gram Stain - Final 08/01/16 12:10 Blood Blood Culture - Final Escherichia coli 08/01/16 15:35 Blood Blood Culture - Preliminary 08/01/16 12:41 Urine,Voided Urine Culture - Final 08/01/16 12:10 Blood Blood Culture - Preliminary Assessment and Plan (1) Febrile neutropenia Narrative/Plan: 85-year-old female presents to hospital with severe weakness. Concerns to underlying sepsis Complicated by her history of acute myelogenous leukemia and pancytopenia with leukopenia. Antibiotic therapy with cefepime and vancomycin are being utilized at this time with a blood culture showing gram-negative monserrat as well as a gram-positive cocci. The cultures have not been finalized. The gram-negative monserrat as E. coli and the gram positive for coagulase-negative staph. Of note the coagulase-negative staph is into 2 cultures drawn the same moment and comments as only 1 culture. Patient is followed by her oncologist and filgrastim has been started. Albumin is low and will need to have further protein supplementation as she allows. Influenza testing was negative. Consequently the vancomycin therapy is discontinued. Cefepime is being utilized given her current situation and is adequate for the current pathogen. She's improved and ready for discharge to home. She may complete a course of ciprofloxacin for 14 days for her gram-negative bacteremia and sepsis. Status: Acute (2) Acute myelogenous leukemia Status: Chronic (3) Pancytopenia Status: Acute
--- NOTE | 2016-08-04 23:53 | P.PN ---
Subjective Principal diagnosis: pancytopenia, neutropenic fever post chemo, AML, history of breast cancer, colon cancer, GI bleed and positive Hemoccult, diabetes, hypertension, hyperlipidemia and hypothyroidism. This is an 85-year-old female. Her primary care physician is Dr. Pride. She has a past medical history of diabetes mellitus type 2 insulin- requiring, hypertension, hyperlipidemia, hypothyroidism, breast cancer, colon cancer status post bowel resection, acute myelogenous leukemia, pancytopenia, vitamin D deficiency. Patient had a recent hospitalization at [facility] at which time she was admitted from July 02 through 2016. She was treated for anemia and was transfused with 3 units of packed RBCs. Her troponins were elevated 0.33 and this was thought to be due to the anemia. Her EF was 55-60% patient states that she noticed her vision was fuzzy the past 2 days when she got up in the morning and then that would clear in the next hour and a half to 2 hours. She also states that her sister didn't like the color of her skin or her lips and made her come into the hospital. She denies having any abdominal pain she denies any falls. She does have chronic diarrhea. She states her first bowel movement in the morning is usually formed and then her stools are loose throughout the day and she goes 5-6 times depending on what she eats. She denies having any lightheadedness or dizziness. She does receive outpatient transfusions in the last one was on July 24. Patient presented to [facility] emergency center. She was found to have a fever of 100.6, thrombocytopenia with white count of 1.3, hemoglobin 5.6 and platelet count 6. Troponin was negative. Influenza A and B by PCR not detected. Electrolytes, kidney and liver functions within normal limits. Urinalysis negative. CAT scan of the brain showed no acute process. Chest x-ray showed no acute process. Patient did have a bloody bowel movement while in the emergency center. Patient was admitted to the intensive care unit , consult with Dr. Salas requested for intensive care management and oncology consult placed. Consult with Dr. Varner for anemia. Blood cultures were obtained. She received 1 dose of Levaquin and vancomycin in the emergency center. She is currently on Cefepime. She is status post transfusion of platelets and packed RBCs. She has not required vasopressors. She has been seen by Dr. 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 CAT scan revealed inflammatory changes in the bowel and lung nodules. PET scan in June 2015 did not reveal any evidence of metastatic disease. 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 Due to severe anemia in April 2016 she underwent a bone marrow biopsy which was consistent with acute myelogenous leukemia. Patient decided to start Dacogen which was done on 07/13/2016 and completed 1 cycle on 07/17/2016. Patient is also followed by Dr. Salas for intensive care management. She has been seen by Dr. Varner for anemia. Occult stool was positive but no evidence of acute GI bleed. No procedures planned at this time. 08/03: no significant the drop in hemoglobin in the last 24 hours patient is more stable not having any active GI bleed, white blood cell hemoglobin and platelet remain low. Temperature is much better. Patient still on protocol and treatment for neutropenia. Patient be transfer out of the ICU today continue current management Will increase diet today. 08/04: Hemodynamically patient is much better today, hemoglobin is slightly bit lower slightly below 8 but no need for blood transfusion so far. WBC has improved since yesterday but platelet count remain intubated low and patient remain on severe thrombocytopenia with no sign of bleeding. Infectious disease has finalize a culture and patient will be on oral antibiotics when she leaves the hospital possibly tomorrow. With general surgery patient has not had any further GI bleed no need to do any EGD or lower gastroscopy at this point. Objective - Vital Signs Vital signs: Vital Signs Temp 98.8 F 08/04/16 07:00 Pulse 80 08/04/16 07:00 Resp 16 08/04/16 07:00 BP 159/68 08/04/16 07:00 Pulse Ox 95 08/04/16 07:00 Intake & Output 08/03/16 08/04/16 08/04/16 18:59 06:59 18:59 Intake Total 800 540 800 Output Total 1300 Balance -500 540 800 Weight 78.2 kg 78.2 kg Intake: IV 800 800 Sodium Chloride 0.9% 1, 800 800 000 ml @ 100 mls/hr IV . Q10H [facility] Rx#:[id number] Oral 340 Blood Product 200 Platelet Pheresis Acda2 200 Unit [id number] Output: Urine 1300 Other: Voiding Method Bedside Commode Bedside Commode # Voids 2 # Bowel Movements 1 1 - Constitutional General appearance: Present: cooperative, no acute distress. Absent: average body habitus, disheveled, mild distress, morbidly obese, obese, severe distress , thin - EENT Eyes: Present: normal appearance. Absent: abnormal pupil, anicteric sclerae, disc margins sharp, edentulous, EOMI, PERRLA, fundus normal, photophobia, dentition normal, poor dentition, ptosis, scleral icterus ENT: Present: hard of hearing, normal oropharynx. Absent: hearing grossly normal, NA/AT, other, pharyngeal erythema, thrush, tonsillar exudates, tonsillar swelling Ears: bilateral: normal - Neck Neck: Present: normal ROM. Absent: lymphadenopathy, other, rigidity, stridor, thyromegaly Carotids: bilateral: upstroke normal Thyroid: bilateral: normal size - Respiratory Respiratory: bilateral: CTA, diminished - Cardiovascular Rhythm: regular Heart sounds: normal: S1, S2 Abnormal Heart Sounds: Present: systolic murmur - Gastrointestinal General gastrointestinal: Present: distended, normal bowel sounds, soft. Absent : absent bowel sounds, decreased bowel sounds, hepatomegaly, hyperactive bowel sounds, organomegaly, rigid, scaphoid, splenomegaly, tenderness, umbilical hernia, ventral hernia - Integumentary Integumentary: Present: normal, pale, rash. Absent: calor, cellulitis, cyanotic , decreased turgor, flushed, jaundiced, normal turgor, ulcer - Neurologic Neurologic: Present: CNII-XII intact - Musculoskeletal Musculoskeletal: Present: gait normal, generalized weakness, strength equal bilaterally - Psychiatric Psychiatric: Present: A&O x's 3, appropriate affect - Labs CBC & Chem 7: 08/04/16 09:11 08/04/16 09:11 Labs: Abnormal Lab Results - Last 24 Hours (Table) 08/03/16 08/03/16 08/04/16 Range/Units 17:15 20:19 07:00 RBC (3.80-5.40) m/uL Hgb (11.4-16.0) gm/dL Hct (34.0-46.0) % Plt Count (150-450) k/uL Lymphocytes # (Manual) (1.0-4.8) k/uL Chloride (98-107) mmol/L Carbon Dioxide (22-30) mmol/L Glucose (74-99) mg/dL POC Glucose (mg/dL) 138 H 116 H 109 H (75-99) mg/dL Albumin (3.5-5.0) g/dL 08/04/16 08/04/16 Range/Units 09:11 09:11 RBC 3.06 L (3.80-5.40) m/uL Hgb 9.3 L (11.4-16.0) gm/dL Hct 27.9 L (34.0-46.0) % Plt Count 17 L* D (150-450) k/uL Lymphocytes # (Manual) 0.7 L (1.0-4.8) k/uL Chloride 110 H (98-107) mmol/L Carbon Dioxide 21 L (22-30) mmol/L Glucose 168 H (74-99) mg/dL POC Glucose (mg/dL) (75-99) mg/dL Albumin 3.3 L (3.5-5.0) g/dL Microbiology - Last 24 Hours (Table) 08/01/16 15:35 Blood Culture Gram Stain - Preliminary Blood Blood Culture - Preliminary Coagulase Negative Staph 08/02/16 16:42 Blood Culture - Preliminary Blood No Growth after 24 hours 08/02/16 16:43 Blood Culture - Preliminary Blood No Growth after 24 hours Assessment and Plan Plan: 1. Neutropenic fever. Consult with Dr. Glez appreciated. Patient is currently on cefepime. Blood cultures are in progress. Blood culture from the first day came back positive for E. coli susceptible to all antibiotics, continue IV antibiotics at least until tomorrow and then switch patient to oral antibiotics. 2. Acute myelogenous leukemia. Consult with Dr. Glez appreciated. 3. 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 Patient is status post platelet and packed RBC transfusion. Patient has been started on Zarxio. Monitor counts daily. Pancytopenia has improved with exception of platelet count remain quite bit low with no sign of bleeding. 4. History of breast cancer, adenocarcinoma of the colon, neuroendocrine carcinoma of the small bowel. 5. Occult blood stool positive with concern for acute GI bleed. Dr. Varner is on consult. No signs of GI bleed at this time. No immediate procedure planned. Monitor hemoglobin. No active GI bleed at this point in no need for any scope currently. 6. Diabetes mellitus type 2, insulin requiring. Patient is on Novolin 70/30 20 units twice daily at home. Patient currently on Humalog scale. 7. Hypertension. Continue Norvasc 5 mg twice daily. 8. Hyperlipidemia. Continue Zocor 20 mg at bedtime. 9. Hypothyroidism. Continue levothyroxine 112 g daily. 10. Vitamin D deficiency. Continue calcium and vitamin D supplement. 11. Gastrointestinal prophylaxis. Continue Protonix 40 mg IV daily. 12. DVT prophylaxis. Heparin as not started due to thrombocytopenia. ALAINA zuniga and SCDs. Discharge planning: Patient is stable tomorrow hopefully will be able to be discharged, discussion with the patient she wishes not to go to [facility] or any intermediate care but she went to go home with home help if possible.
[2016-08-05] MEDS: CEFEPIME 2 GM in SODIUM CHLORIDE 0.9% 50 ML IVPB SCH ×2 (05:47→19:41)
[2016-08-05] MEDS: LEVOTHYROXINE 112 MCG TAB PO SCH (05:47)
[2016-08-05 07:24] LABS: Glucose,Whole Blood 91 mg/dL (75-99)
[2016-08-05 08:04] LABS: Anion Gap 12 mmol/L; Blood Urea Nitrogen 9 mg/dL (7-17); Calcium 9.1 mg/dL (8.4-10.2); Carbon Dioxide 22 mmol/L (22-30); Chloride 110 mmol/L (98-107); Glucose 98 mg/dL (74-99); Non-African American GFR(MDRD) >60 (>60 ml/min/1.73 sqM); Potassium 3.6 mmol/L (3.5-5.1); Sodium 144 mmol/L (137-145)
[2016-08-05] MEDS: INSULIN LISPRO (humaLOG) 300 UNIT/3 ML VIAL SQ SCH ×4 (08:28→21:18)
[2016-08-05] MEDS: amLODIPine 5 MG TAB PO SCH ×2 (08:29→21:56)
[2016-08-05] MEDS: CALCIUM CARBONATE 500 MG CHEWABLE PO SCH (08:30)
[2016-08-05] MEDS: ANASTROZOLE 1 MG TAB PO SCH (08:30)
[2016-08-05] MEDS: PANTOPRAZOLE 40 MG/10 ML VIAL IV SCH (08:31)
[2016-08-05 08:40] LABS: CH 29.6; CHCM 32.5; HCT 26.9 % (34.0-46.0); HDW 3.18; HGB 8.8 gm/dL (11.4-16.0); Immature Gran Flag Marked; MCH 29.8 pg (25.0-35.0); MCHC 32.6 g/dL (31.0-37.0); MCV 91.5 fL (80.0-100.0); Mean Platelet Volume 9.8; RBC 2.94 m/uL (3.80-5.40); RDW 14.8 % (11.5-15.5); WBC (Perox) 5.59
[2016-08-05] MEDS: SODIUM CHLORIDE 0.9% 1,000 ML IV SCH ×2 (08:46→21:15)
--- NOTE | 2016-08-05 09:05 | PN ---
This is an 85-year-old female, seen, evaluated and examined in followup. This patient was seen previously for bacteremia as well acute blood loss anemia and severe thrombocytosis. His hemoglobin count is stable. He feels much better; severe degree of GI bleed that has been noted previously has significantly improved. His hemodynamic status is stable with blood pressure 160/70, respiratory rate 17, heart rate 77, temperature 98, saturation of 98%. Her HEENT examination otherwise unremarkable. Oral mucosa is moist. NECK: Supple, neck veins are prominent, but no significant jugular venous distention is present. HEART: Regular rate and rhythm, S1 and S2 audible. Abdomen is soft. No rebound or rigidity. EXTREMITIES: +1 peripheral pulses. Lung exam is otherwise unremarkable. He laboratory data reviewed. Medications reviewed as well. Her white cell count is 6700, hemoglobin and hematocrit 9.3 and 27.9, platelet count remained stable at 17,000. Her glucose is 130/68. Medications reviewed. Remains on cefepime along with atorvastatin, Arimidex, amlodipine, Tylenol, Vitamin D3. Patient is also on filgrastim, sliding scale insulin and Synthroid. Her culture results and report are reviewed. Repeat blood cultures with no growth, previously patient was noted to have E. coli and guaiac-negative. IMPRESSION: 1. Severe sepsis and bacteremia with febrile neutropenia and severe anemia and thrombocytopenia and pancytopenia related to be post-chemotherapy. 2. Leukemia for which chemotherapy was initiated. 3. Generalized weakness which has improved. PLAN: As above. Continue supportive care. Patient has been advised to continue deep breathing exercise. Increase activity as tolerated. Last chest x-ray performed on 08/03 reviewed and compared with the prior x-ray. Borderline cardiomegaly is seen. Otherwise, no significant pathology has been noted. A small interstitial edema and prominent markings can be excluded with ( ). Will follow.
[2016-08-05 11:54] LABS: Glucose,Whole Blood 88 mg/dL (75-99)
[2016-08-05 11:55] LABS: Add Differential Manual Differential
[2016-08-05 11:59] LABS: Manual Review Performed; Nucleated Red Blood Cells 1 /100 WBC (0-0); Total Cells Counted 100; WBC 5.1 k/uL (3.8-10.6)
[2016-08-05] MEDS: FILGRASTIM-SNDZ 480 MCG/0.8 ML SYRINGE SQ SCH (12:11)
[2016-08-05] MEDS: CHOLECALCIFEROL 1,000 UNIT TAB PO SCH (12:15)
--- NOTE | 2016-08-05 12:41 | PN ---
Alla Bingham who is an 85-year-old female, seen, evaluated and examined on the fifth floor. Patient has been hospitalized for severe anemia, thrombocytopenia, and febrile neutropenia. Blood cultures were positive for E. coli, source appears to be bowel clinically. Other cultures including repeat blood cultures have been negative. Patient's hemodynamic status is stable. No evidence of active bleeding is seen. Her hemoglobin is stable as well. She is tolerating p.o. well. No obvious distress is present. Her blood pressure is 150/70, respiratory rate 18, pulse 80, temperature 98, saturation of 95% to 96% on room air. HEENT: Unremarkable. NECK: Supple without lymphadenopathy, jugular venous distention or carotid bruit. LUNGS: Bilateral good air entry is present. HEART: Regular rate and rhythm. ABDOMEN: Soft. NEUROLOGICAL EXAMINATION: Awake. White cell count is up to 5200. Hemoglobin and hematocrit 8.8 and 26.9, platelet count of 15,000, which overall remains stable though. Chemistry reviewed which is within normal limits. IMPRESSION: 1. As dictated above. Febrile neutropenia related to bacteremia associated with Escherichia coli source likely bowel. Patient remains on broad-spectrum antibiotics. 2. Acute blood loss anemia related to pancytopenia, hemoglobin and platelet count has been stable, likely post-chemotherapy. 3. Generalized weakness and medical debility. 4. Leukemia, has been on chemotherapy. Will follow clinical course closely. Further recommendations pending. Follow up in outpatient setting. Will follow.
--- NOTE | 2016-08-05 15:20 | P.PN ---
Subjective Principal diagnosis: pancytopenia, neutropenic fever post chemo, AML, history of breast cancer, colon cancer, GI bleed and positive Hemoccult, diabetes, hypertension, hyperlipidemia and hypothyroidism. This is an 85-year-old female. Her primary care physician is Dr. Pride. She has a past medical history of diabetes mellitus type 2 insulin- requiring, hypertension, hyperlipidemia, hypothyroidism, breast cancer, colon cancer status post bowel resection, acute myelogenous leukemia, pancytopenia, vitamin D deficiency. Patient had a recent hospitalization at [facility] at which time she was admitted from July 02 through 2016. She was treated for anemia and was transfused with 3 units of packed RBCs. Her troponins were elevated 0.33 and this was thought to be due to the anemia. Her EF was 55-60% patient states that she noticed her vision was fuzzy the past 2 days when she got up in the morning and then that would clear in the next hour and a half to 2 hours. She also states that her sister didn't like the color of her skin or her lips and made her come into the hospital. She denies having any abdominal pain she denies any falls. She does have chronic diarrhea. She states her first bowel movement in the morning is usually formed and then her stools are loose throughout the day and she goes 5-6 times depending on what she eats. She denies having any lightheadedness or dizziness. She does receive outpatient transfusions in the last one was on July 24. Patient presented to [facility] emergency center. She was found to have a fever of 100.6, thrombocytopenia with white count of 1.3, hemoglobin 5.6 and platelet count 6. Troponin was negative. Influenza A and B by PCR not detected. Electrolytes, kidney and liver functions within normal limits. Urinalysis negative. CAT scan of the brain showed no acute process. Chest x-ray showed no acute process. Patient did have a bloody bowel movement while in the emergency center. Patient was admitted to the intensive care unit , consult with Dr. Salas requested for intensive care management and oncology consult placed. Consult with Dr. Varner for anemia. Blood cultures were obtained. She received 1 dose of Levaquin and vancomycin in the emergency center. She is currently on Cefepime. She is status post transfusion of platelets and packed RBCs. She has not required vasopressors. She has been seen by Dr. 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 CAT scan revealed inflammatory changes in the bowel and lung nodules. PET scan in June 2015 did not reveal any evidence of metastatic disease. 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 Due to severe anemia in April 2016 she underwent a bone marrow biopsy which was consistent with acute myelogenous leukemia. Patient decided to start Dacogen which was done on 07/13/2016 and completed 1 cycle on 07/17/2016. Patient is also followed by Dr. Salas for intensive care management. She has been seen by Dr. Varner for anemia. Occult stool was positive but no evidence of acute GI bleed. No procedures planned at this time. 08/03: no significant the drop in hemoglobin in the last 24 hours patient is more stable not having any active GI bleed, white blood cell hemoglobin and platelet remain low. Temperature is much better. Patient still on protocol and treatment for neutropenia. Patient be transfer out of the ICU today continue current management Will increase diet today. 08/04: Hemodynamically patient is much better today, hemoglobin is slightly bit lower slightly below 8 but no need for blood transfusion so far. WBC has improved since yesterday but platelet count remain intubated low and patient remain on severe thrombocytopenia with no sign of bleeding. Infectious disease has finalize a culture and patient will be on oral antibiotics when she leaves the hospital possibly tomorrow. With general surgery patient has not had any further GI bleed no need to do any EGD or lower gastroscopy at this point. 08/05: Patient does not require any blood transfusion at this point platelet remain slightly bit low we'll continue antibiotics and hopefully prepare for home tomorrow. Objective - Vital Signs Vital signs: Vital Signs Temp 98.3 F 08/05/16 07:00 Pulse 79 08/05/16 08:00 Resp 18 08/05/16 08:00 BP 151/69 08/05/16 07:00 Pulse Ox 98 08/05/16 07:00 Intake & Output 08/04/16 08/05/16 08/05/16 18:59 06:59 18:59 Intake Total 800 1287 240 Balance 800 1287 240 Weight 78.2 kg Intake: IV 800 900 Sodium Chloride 0.9% 1, 800 900 000 ml @ 100 mls/hr IV . Q10H [facility] Rx#:[id number] Oral 100 240 Blood Product 0 287 Platelet Pheresis Acda2 0 287 Unit [id number] Other: Voiding Method Bedside Commode Toilet Toilet # Voids 2 2 # Bowel Movements 1 1 - Constitutional General appearance: Present: cooperative, disheveled. Absent: average body habitus, mild distress, morbidly obese, no acute distress, obese, severe distress, thin - EENT Eyes: Present: normal appearance. Absent: abnormal pupil, anicteric sclerae, disc margins sharp, edentulous, EOMI, PERRLA, fundus normal, photophobia, dentition normal, poor dentition, ptosis, scleral icterus ENT: Present: hard of hearing, normal oropharynx. Absent: hearing grossly normal, NA/AT, other, pharyngeal erythema, thrush, tonsillar exudates, tonsillar swelling Ears: bilateral: normal - Neck Neck: Present: normal ROM. Absent: lymphadenopathy, other, rigidity, stridor, thyromegaly Carotids: bilateral: upstroke normal Thyroid: bilateral: normal size - Respiratory Respiratory: bilateral: diminished, dullness, rales - Cardiovascular Rhythm: regular Heart sounds: normal: S1, S2 Abnormal Heart Sounds: Present: systolic murmur, S3 Gallop - Gastrointestinal General gastrointestinal: Present: distended, normal bowel sounds, soft. Absent : absent bowel sounds, decreased bowel sounds, hepatomegaly, hyperactive bowel sounds, organomegaly, rigid, scaphoid, splenomegaly, tenderness, umbilical hernia, ventral hernia - Integumentary Integumentary: Present: cyanotic, jaundiced, normal, pale, rash. Absent: calor , cellulitis, decreased turgor, flushed, normal turgor, ulcer - Neurologic Neurologic: Present: CNII-XII intact - Musculoskeletal Musculoskeletal: Present: gait normal, generalized weakness, strength equal bilaterally - Psychiatric Psychiatric: Present: A&O x's 3, appropriate affect - Labs CBC & Chem 7: 08/05/16 07:21 08/05/16 07:21 Labs: Abnormal Lab Results - Last 24 Hours (Table) 08/04/16 08/04/16 08/05/16 Range/Units 17:15 20:05 07:21 RBC 2.94 L (3.80-5.40) m/uL Hgb 8.8 L (11.4-16.0) gm/dL Hct 26.9 L (34.0-46.0) % Plt Count 15 L* (150-450) k/uL Lymphocytes # (Manual) 0.5 L (1.0-4.8) k/uL Nucleated RBCs 1 H (0-0) /100 WBC Chloride (98-107) mmol/L POC Glucose (mg/dL) 114 H 107 H (75-99) mg/dL 08/05/16 Range/Units 07:21 RBC (3.80-5.40) m/uL Hgb (11.4-16.0) gm/dL Hct (34.0-46.0) % Plt Count (150-450) k/uL Lymphocytes # (Manual) (1.0-4.8) k/uL Nucleated RBCs (0-0) /100 WBC Chloride 110 H (98-107) mmol/L POC Glucose (mg/dL) (75-99) mg/dL Microbiology - Last 24 Hours (Table) 08/01/16 15:35 Blood Culture - Final Blood 08/01/16 15:35 Blood Culture Gram Stain - Final Blood Blood Culture - Final Staph hominis sub sp. hominis 08/02/16 16:42 Blood Culture - Preliminary Blood No Growth after 48 hours 08/02/16 16:43 Blood Culture - Preliminary Blood No Growth after 48 hours Assessment and Plan Plan: 1. Neutropenic fever. Patient is currently on cefepime. Blood culture from the first day came back positive for E. coli susceptible to all antibiotics, continue IV antibiotics at least until tomorrow and then switch patient to oral antibiotics. Still seen Dr. Bowling and final recommendation for ROM home antibiotics to be made. 2. Acute myelogenous leukemia. Consult with Dr. Amaris londono. 3. 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 Patient is status post platelet and packed RBC transfusion. Patient has been started on Zarxio. Monitor counts daily. Pancytopenia has improved with exception of platelet count remain quite bit low with no sign of bleeding. 4. History of breast cancer, adenocarcinoma of the colon, neuroendocrine carcinoma of the small bowel. 5. Possible GI bleed: No further bleed hemoglobin has been stable so far continue to watch CBC with no need for any invasive gastrointestinal testing. 6. Diabetes mellitus type 2, insulin requiring. Patient is on Novolin 70/30 20 units twice daily at home. Patient currently on Humalog scale. 7. Hypertension. Continue Norvasc 5 mg twice daily. 8. Hyperlipidemia. Continue Zocor 20 mg at bedtime. 9. Hypothyroidism. Continue levothyroxine 112 g daily. 10. Vitamin D deficiency. Continue calcium and vitamin D supplement. 11. Gastrointestinal prophylaxis. Continue Protonix 40 mg IV daily. 12. DVT prophylaxis. Heparin as not started due to thrombocytopenia. ALAINA zuniga and SCDs. Discharge planning: Patient is stable tomorrow hopefully will be able to be discharged, discussion with the patient she wishes not to go to senior care rehab or any intermediate care but she went to go home with home help if possible.
[2016-08-05 17:01] LABS: Glucose,Whole Blood 142 mg/dL (75-99)
--- NOTE | 2016-08-05 19:49 | P.PN ---
Subjective Principal diagnosis: Weakness 85-year-old female with a fascinating history of multiple cancers was recently hospitalized at the outside facility from July 02 through 2016. At the present time she had weakness and dizziness without evidence of anemia and received 3 units of packed red blood cells. Her EF was preserved and she was sent home. Now presents to our facility with significant generalized weakness. She was having evidence of fever significant anemia with a hemoglobin of 5.6 and a platelet count of 6. There is evidence of melena at the time of her admission and she was brought into the intensive care unit. Because of her fever and pancytopenia and buttocks were begun and the infectious diseases consultation was requested. As noted she has a history of multiple cancers that includes original diagnosis of breast carcinoma in 2013. She was treated with Arimidex with lumpectomy and sentinel node biopsy. 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 After which she was having difficulties with significant and ongoing anemia as well as pancytopenia. 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 And she was initiated therapy with Dacogen on 07/13/2016 Had evidence of ongoing gastrointestinal bleeding and is being seen by surgery as well as gastroenterology. Feeling better , out of the ICU. Objective - Vital Signs Vital signs: Vital Signs Temp 98.9 F 08/05/16 15:00 Pulse 85 08/05/16 15:00 Resp 16 08/05/16 15:00 BP 129/61 08/05/16 15:00 Pulse Ox 98 08/05/16 15:00 Intake & Output 08/05/16 08/05/16 08/06/16 06:59 18:59 06:59 Intake Total 1287 240 Balance 1287 240 Intake: IV 900 Sodium Chloride 0.9% 1, 900 000 ml @ 100 mls/hr IV . Q10H [facility] Rx#:[id number] Oral 100 240 Blood Product 287 Platelet Pheresis Acda2 287 Unit [id number] Other: Voiding Method Toilet Toilet # Voids 2 # Bowel Movements 1 - Exam 85-year-old woman poor historian HEENT: Anicteric conjunctiva are pink and moist nasal mucosa grossly intact without significant lesions, there is no thrush.edentulous Neck: The neck is supple without significant lymphadenopathy or thyromegaly. Lungs: Good bilateral air entry without significant crackles or wheezing. There is no significant bronchial sounds. There is no egophony or dullness. Heart: Regular rate and rhythm with an audible S1-S2, no S3 no S4. There is no significant murmur click or rub, PMI was nondisplaced. Abdomen: Positive bowel sounds soft and nontender without palpable masses or organomegaly. There was no guarding or rebound. Extremities: The upper extremities have excellent pulses they are symmetric, scattered petechiae. No splinter hemorrhages were noted. The lower extremities are free from significant edema. The peripheral pulses were 2+ and symmetric. Neuro: Awake alert oriented to person place and time does not have acute gross focal sensory motor deficits - Labs CBC & Chem 7: 08/05/16 07:21 08/05/16 07:21 Labs: Abnormal Lab Results - Last 24 Hours (Table) 08/04/16 08/05/16 08/05/16 Range/Units 20:05 07:21 07:21 RBC 2.94 L (3.80-5.40) m/uL Hgb 8.8 L (11.4-16.0) gm/dL Hct 26.9 L (34.0-46.0) % Plt Count 15 L* (150-450) k/uL Lymphocytes # (Manual) 0.5 L (1.0-4.8) k/uL Nucleated RBCs 1 H (0-0) /100 WBC Chloride 110 H (98-107) mmol/L POC Glucose (mg/dL) 107 H (75-99) mg/dL 08/05/16 Range/Units 16:44 RBC (3.80-5.40) m/uL Hgb (11.4-16.0) gm/dL Hct (34.0-46.0) % Plt Count (150-450) k/uL Lymphocytes # (Manual) (1.0-4.8) k/uL Nucleated RBCs (0-0) /100 WBC Chloride (98-107) mmol/L POC Glucose (mg/dL) 142 H (75-99) mg/dL Microbiology - Last 24 Hours (Table) 08/02/16 16:42 Blood Culture - Preliminary Blood No Growth after 72 hours 08/02/16 16:43 Blood Culture - Preliminary Blood No Growth after 72 hours 08/01/16 15:35 Blood Culture - Final Blood 08/01/16 15:35 Blood Culture Gram Stain - Final Blood Blood Culture - Final Staph hominis sub sp. hominis Laboratory Results WBC 5.1 k/uL (3.8-10.6) 08/05/16 07:21 RBC 2.94 m/uL (3.80-5.40) L 08/05/16 07:21 Hgb 8.8 gm/dL (11.4-16.0) L 08/05/16 07:21 Hct 26.9 % (34.0-46.0) L 08/05/16 07:21 MCV 91.5 fL (80.0-100.0) 08/05/16 07:21 MCH 29.8 pg (25.0-35.0) 08/05/16 07:21 MCHC 32.6 g/dL (31.0-37.0) 08/05/16 07:21 RDW 14.8 % (11.5-15.5) 08/05/16 07:21 Plt Count 15 k/uL (150-450) L* 08/05/16 07:21 Neutrophils % (Manual) 76.0 % 08/05/16 07:21 Band Neutrophils % 2.0 % 08/05/16 07:21 Lymphocytes % (Manual) 10.0 % 08/05/16 07:21 Monocytes % (Manual) 8.0 % 08/05/16 07:21 Eosinophils % (Manual) 1.0 % 08/05/16 07:21 Basophils % (Manual) 0.5 % 08/04/16 09:11 Metamyelocytes % 1.0 % 08/04/16 09:11 Myelocytes % 3.0 % 08/05/16 07:21 Blast Cells % 1.0 08/04/16 09:11 Neutrophils # (Manual) 4.0 k/uL (1.3-7.7) 08/05/16 07:21 Lymphocytes # (Manual) 0.5 k/uL (1.0-4.8) L 08/05/16 07:21 Monocytes # (Manual) 0.4 k/uL (0-1.0) 08/05/16 07:21 Eosinophils # (Manual) 0.1 k/uL (0-0.7) 08/05/16 07:21 Basophils # (Manual) 0.0 k/uL (0-0.2) 08/04/16 09:11 Nucleated RBCs 1 /100 WBC (0-0) H 08/05/16 07:21 Manual Slide Review Performed 08/05/16 07:21 Pathologist Review Cancelled 08/02/16 04:10 Poikilocytosis (manual Present 08/05/16 07:21 Anisocytosis Slight 08/01/16 12:16 Rouleaux Present 08/03/16 04:04 PT 11.1 sec (9.0-12.0) 08/01/16 12:10 INR 1.1 (<1.1) 08/01/16 12:10 APTT 22.4 sec (22.0-30.0) 08/01/16 12:10 Sodium 144 mmol/L (137-145) 08/05/16 07:21 Potassium 3.6 mmol/L (3.5-5.1) 08/05/16 07:21 Chloride 110 mmol/L (98-107) H 08/05/16 07:21 Carbon Dioxide 22 mmol/L (22-30) 08/05/16 07:21 Anion Gap 12 mmol/L 08/05/16 07:21 BUN 9 mg/dL (7-17) 08/05/16 07:21 Creatinine 0.74 mg/dL (0.52-1.04) 08/05/16 07:21 Est GFR (MDRD) Af Amer >60 (>60 ml/min/1.73 sqM) 08/05/16 07:21 Est GFR (MDRD) Non-Af >60 (>60 ml/min/1.73 sqM) 08/05/16 07:21 Glucose 98 mg/dL (74-99) 08/05/16 07:21 POC Glucose (mg/dL) 142 mg/dL (75-99) H 08/05/16 16:44 POC Glu Button Grader ID Pattie Fernandez 08/05/16 16:44 Plasma Lactic Acid [place] 1.5 mmol/L (0.7-2.0) 08/02/16 04:10 Calcium 9.1 mg/dL (8.4-10.2) 08/05/16 07:21 Phosphorus 2.6 mg/dL (2.5-4.5) 08/04/16 09:11 Magnesium 1.9 mg/dL (1.6-2.3) 08/04/16 09:11 Total Bilirubin 0.6 mg/dL (0.2-1.3) 08/04/16 09:11 AST 20 U/L (14-36) 08/04/16 09:11 ALT 27 U/L (9-52) 08/04/16 09:11 Alkaline Phosphatase 72 U/L (38-126) 08/04/16 09:11 Total Creatine Kinase 27 U/L (30-135) L 08/01/16 23:29 CK-MB (CK-2) 0.4 ng/mL (0.0-2.4) 08/01/16 23:29 CK-MB (CK-2) Rel Index 1.5 08/01/16 23:29 Troponin I <0.012 ng/mL (0.000-0.034) 08/01/16 23:29 Total Protein 7.7 g/dL (6.3-8.2) 08/04/16 09:11 Albumin 3.3 g/dL (3.5-5.0) L 08/04/16 09:11 Cortisol 16 ug/dL 08/01/16 12:10 Urine Color Yellow 08/01/16 12:41 Urine Appearance Clear (Clear) 08/01/16 12:41 Urine pH 6.5 (5.0-8.0) 08/01/16 12:41 Ur Specific [place] 1.019 (1.001-1.035) 08/01/16 12:41 Urine Protein Trace (Negative) H 08/01/16 12:41 Urine Glucose (UA) Negative (Negative) 08/01/16 12:41 Urine Ketones Negative (Negative) 08/01/16 12:41 Urine Blood Negative (Negative) 08/01/16 12:41 Urine Nitrate Negative (Negative) 08/01/16 12:41 Urine Bilirubin Negative (Negative) 08/01/16 12:41 Urine Urobilinogen <2.0 mg/dL (<2.0) 08/01/16 12:41 Ur Leukocyte Esterase Negative (Negative) 08/01/16 12:41 Stool Occult Blood Positive (Negative) H 08/01/16 15:32 Influenza Type A RNA Not Detected (Not Detectd) 08/01/16 11:40 Influenza Type B (PCR) Not Detected (Not Detectd) 08/01/16 11:40 Blood Type O Positive 08/04/16 13:23 Blood Type Recheck O Pos 08/05/16 10:43 Antibody Screen POSITIVE 08/04/16 13:23 Antibody Identification Anti-E 08/04/16 13:23 Direct Antiglob Test Positive 08/04/16 13:23 Crossmatch See Detail 08/01/16 12:10 Transfuse Platelets 08/04/2016 08/04/16 09:17 Tx Rx Implicated Unit 1 [id number] 08/05/16 10:43 Pre-Trans Blood Type O Positive 08/05/16 10:43 Pre-Trans Spec Appearnc Negative 08/05/16 10:43 Pre-Trans NATALIE IgG Negative 08/05/16 10:43 Pre-Trans NATALIE Poly Negative 08/05/16 10:43 Post-Trans Blood Type O Positive 08/05/16 10:43 Post-Trans Spec Appear Negative 08/05/16 10:43 Post-Trans NATALIE IgG Positive 08/05/16 10:43 Post-Trans NATALIE Poly Negative 08/05/16 10:43 Spec Expiration Date 08/07/2016 - 232208/04/16 13:23 Microbiology 08/02/16 16:42 Blood Blood Culture - Preliminary No Growth after 72 hours 08/02/16 16:43 Blood Blood Culture - Preliminary No Growth after 72 hours 08/01/16 15:35 Blood Blood Culture - Final 08/01/16 12:10 Blood Blood Culture - Final 08/01/16 15:35 Blood Blood Culture Gram Stain - Final 08/01/16 15:35 Blood Blood Culture - Final Staph hominis sub sp. hominis 08/01/16 12:10 Blood Blood Culture Gram Stain - Final 08/01/16 12:10 Blood Blood Culture - Final Escherichia coli 08/01/16 12:41 Urine,Voided Urine Culture - Final Assessment and Plan (1) Febrile neutropenia Narrative/Plan: 85-year-old female presents to hospital with severe weakness. Concerns to underlying sepsis Complicated by her history of acute myelogenous leukemia and pancytopenia with leukopenia. Antibiotic therapy with cefepime and vancomycin are being utilized at this time with a blood culture showing gram-negative monserrat as well as a gram-positive cocci. The cultures have not been finalized. The gram-negative monserrat as E. coli and the gram positive for coagulase-negative staph. Of note the coagulase-negative staph is into 2 cultures drawn the same moment and comments as only 1 culture. Patient is followed by her oncologist and filgrastim has been started. Albumin is low and will need to have further protein supplementation as she allows. Influenza testing was negative. Consequently the vancomycin therapy is discontinued. Cefepime is being utilized given her current situation and is adequate for the current pathogen. She's improved will likely discharge to home in the next few days as her platelets are improving She may complete a course of ciprofloxacin for 14 days for her gram-negative bacteremia and sepsis. Status: Acute (2) Acute myelogenous leukemia Status: Chronic (3) Pancytopenia Status: Acute
[2016-08-05 20:31] LABS: Glucose,Whole Blood 156 mg/dL (75-99)
[2016-08-05] MEDS: ATORVASTATIN 10 MG TAB PO SCH (21:15)
[2016-08-05] MEDS: ACETAMINOPHEN TAB 325 MG TAB PO PRN (21:15)
[2016-08-06] MEDS: CEFEPIME 2 GM in SODIUM CHLORIDE 0.9% 50 ML IVPB SCH ×2 (06:10→17:07)
[2016-08-06] MEDS: SODIUM CHLORIDE 0.9% 1,000 ML IV SCH ×3 (06:12→18:15)
[2016-08-06] MEDS: LEVOTHYROXINE 112 MCG TAB PO SCH (06:16)
[2016-08-06 07:13] LABS: Glucose,Whole Blood 111 mg/dL (75-99)
[2016-08-06] MEDS: INSULIN LISPRO (humaLOG) 300 UNIT/3 ML VIAL SQ SCH ×4 (07:30→20:16)
[2016-08-06 07:53] LABS: Anion Gap 11 mmol/L; Blood Urea Nitrogen 9 mg/dL (7-17); Calcium 8.7 mg/dL (8.4-10.2); Carbon Dioxide 22 mmol/L (22-30); Chloride 112 mmol/L (98-107); Glucose 112 mg/dL (74-99); Non-African American GFR(MDRD) >60 (>60 ml/min/1.73 sqM); Potassium 3.6 mmol/L (3.5-5.1); Sodium 145 mmol/L (137-145)
[2016-08-06] MEDS: amLODIPine 5 MG TAB PO SCH ×2 (09:25→20:16)
[2016-08-06] MEDS: CALCIUM CARBONATE 500 MG CHEWABLE PO SCH (09:25)
[2016-08-06] MEDS: ANASTROZOLE 1 MG TAB PO SCH (09:25)
[2016-08-06] MEDS: PANTOPRAZOLE 40 MG/10 ML VIAL IV SCH (09:25)
[2016-08-06 11:22] LABS: Glucose,Whole Blood 154 mg/dL (75-99)
[2016-08-06 11:32] LABS: CH 29.6; CHCM 32.4; HCT 24.4 % (34.0-46.0); HDW 3.14; HGB 8.1 gm/dL (11.4-16.0); MCH 30.5 pg (25.0-35.0); MCHC 33.2 g/dL (31.0-37.0); MCV 91.9 fL (80.0-100.0); Mean Platelet Volume 7.7; RBC 2.66 m/uL (3.80-5.40); RDW 14.7 % (11.5-15.5); WBC 4.8 k/uL (3.8-10.6)
[2016-08-06] MEDS: CHOLECALCIFEROL 1,000 UNIT TAB PO SCH (11:35)
[2016-08-06] MEDS ORDERED: POTASSIUM CHLORIDE ER 20 MEQ TAB.ER PO STA (14:34)
--- NOTE | 2016-08-06 15:02 | P.PN ---
Subjective This is an 85-year-old female. Her primary care physician is Dr. Pride. She has a past medical history of diabetes mellitus type 2 insulin- requiring, hypertension, hyperlipidemia, hypothyroidism, breast cancer, colon cancer status post bowel resection, acute myelogenous leukemia, pancytopenia, vitamin D deficiency. Patient had a recent hospitalization at [facility] at which time she was admitted from July 02 through 2016. She was treated for anemia and was transfused with 3 units of packed RBCs. Her troponins were elevated 0.33 and this was thought to be due to the anemia. Her EF was 55-60% patient states that she noticed her vision was fuzzy the past 2 days when she got up in the morning and then that would clear in the next hour and a half to 2 hours. She also states that her sister didn't like the color of her skin or her lips and made her come into the hospital. She denies having any abdominal pain she denies any falls. She does have chronic diarrhea. She states her first bowel movement in the morning is usually formed and then her stools are loose throughout the day and she goes 5-6 times depending on what she eats. She denies having any lightheadedness or dizziness. She does receive outpatient transfusions in the last one was on July 24. Patient presented to [facility] emergency center. She was found to have a fever of 100.6, thrombocytopenia with white count of 1.3, hemoglobin 5.6 and platelet count 6. Troponin was negative. Influenza A and B by PCR not detected. Electrolytes, kidney and liver functions within normal limits. Urinalysis negative. CAT scan of the brain showed no acute process. Chest x-ray showed no acute process. Patient did have a bloody bowel movement while in the emergency center. Patient was admitted to the intensive care unit , consult with Dr. Salas requested for intensive care management and oncology consult placed. Consult with Dr. Varner for anemia. Blood cultures were obtained. She received 1 dose of Levaquin and vancomycin in the emergency center. She is currently on Cefepime. She is status post transfusion of platelets and packed RBCs. She has not required vasopressors. She has been seen by Dr. 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 CAT scan revealed inflammatory changes in the bowel and lung nodules. PET scan in June 2015 did not reveal any evidence of metastatic disease. 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 Due to severe anemia in April 2016 she underwent a bone marrow biopsy which was consistent with acute myelogenous leukemia. Patient decided to start Dacogen which was done on 07/13/2016 and completed 1 cycle on 07/17/2016. Patient is also followed by Dr. Salas for intensive care management. She has been seen by Dr. Varner for anemia. Occult stool was positive but no evidence of acute GI bleed. No procedures planned at this time. 08/03: no significant the drop in hemoglobin in the last 24 hours patient is more stable not having any active GI bleed, white blood cell hemoglobin and platelet remain low. Temperature is much better. Patient still on protocol and treatment for neutropenia. Patient be transfer out of the ICU today continue current management Will increase diet today. 08/04: Hemodynamically patient is much better today, hemoglobin is slightly bit lower slightly below 8 but no need for blood transfusion so far. WBC has improved since yesterday but platelet count remain intubated low and patient remain on severe thrombocytopenia with no sign of bleeding. Infectious disease has finalize a culture and patient will be on oral antibiotics when she leaves the hospital possibly tomorrow. With general surgery patient has not had any further GI bleed no need to do any EGD or lower gastroscopy at this point. 08/05: Patient does not require any blood transfusion at this point platelet remain slightly bit low we'll continue antibiotics and hopefully prepare for home tomorrow. 08/06: Platelet count is 7 and patient is scheduled for transfusion. She denies having any bleeding or blood in her stools since emergency center. Dr. Bowling has recommended ciprofloxacin for 14 days. We will plan to recheck lab work in the morning and discharge home tomorrow. Objective - Vital Signs Vital signs: Vital Signs Temp 97.7 F 08/06/16 07:00 Pulse 74 08/06/16 07:00 Resp 16 08/06/16 07:00 BP 140/68 08/06/16 07:00 Pulse Ox 96 02/16/17 07:00 Intake & Output 08/05/16 08/06/16 08/06/16 18:59 06:59 18:59 Intake Total 240 1150 Output Total 200 Balance 40 1150 Intake: IV 900 Sodium Chloride 0.9% 1, 900 000 ml @ 100 mls/hr IV . Q10H LIZETH Rx#:[id number] Intake, IV Titration 50 Amount Cefepime 2 gm In Sodium 50 Chloride 0.9% 50 ml @ 100 mls/hr IVPB Q12HR@0600, 1800 LIZETH Rx#:[id number] Oral 240 200 Output: Urine 200 Other: Voiding Method Toilet Toilet # Voids 2 1 # Bowel Movements 2 - Exam General appearance: Present: cooperative, disheveled. Absent: average body habitus, mild distress, morbidly obese, no acute distress, obese, severe distress, thin - EENT Eyes: Present: normal appearance. Absent: abnormal pupil, anicteric sclerae, disc margins sharp, edentulous, EOMI, PERRLA, fundus normal, photophobia, dentition normal, poor dentition, ptosis, scleral icterus ENT: Present: hard of hearing, normal oropharynx. Absent: hearing grossly normal, NA/AT, other, pharyngeal erythema, thrush, tonsillar exudates, tonsillar swelling Ears: bilateral: normal - Neck Neck: Present: normal ROM. Absent: lymphadenopathy, other, rigidity, stridor, thyromegaly Carotids: bilateral: upstroke normal Thyroid: bilateral: normal size - Respiratory Respiratory: bilateral: diminished, dullness, rales - Cardiovascular Rhythm: regular Heart sounds: normal: S1, S2 Abnormal Heart Sounds: Present: systolic murmur, S3 Gallop - Gastrointestinal General gastrointestinal: Present: distended, normal bowel sounds, soft. Absent : absent bowel sounds, decreased bowel sounds, hepatomegaly, hyperactive bowel sounds, organomegaly, rigid, scaphoid, splenomegaly, tenderness, umbilical hernia, ventral hernia - Integumentary Integumentary: Present: cyanotic, jaundiced, normal, pale, rash. Absent: calor , cellulitis, decreased turgor, flushed, normal turgor, ulcer - Neurologic Neurologic: Present: CNII-XII intact - Musculoskeletal Musculoskeletal: Present: gait normal, generalized weakness, strength equal bilaterally - Psychiatric Psychiatric: Present: A&O x's 3, appropriate affect - Labs CBC & Chem 7: 08/06/16 07:03 08/06/16 07:03 Labs: Abnormal Lab Results - Last 24 Hours (Table) 08/05/16 08/05/16 08/05/16 Range/Units 07:21 16:44 20:26 RBC 2.94 L (3.80-5.40) m/uL Hgb 8.8 L (11.4-16.0) gm/dL Hct 26.9 L (34.0-46.0) % Plt Count 15 L* (150-450) k/uL Lymphocytes # (Manual) 0.5 L (1.0-4.8) k/uL Nucleated RBCs 1 H (0-0) /100 WBC Chloride (98-107) mmol/L Glucose (74-99) mg/dL POC Glucose (mg/dL) 142 H 156 H (75-99) mg/dL 08/06/16 08/06/16 Range/Units 07:03 07:08 RBC (3.80-5.40) m/uL Hgb (11.4-16.0) gm/dL Hct (34.0-46.0) % Plt Count (150-450) k/uL Lymphocytes # (Manual) (1.0-4.8) k/uL Nucleated RBCs (0-0) /100 WBC Chloride 112 H (98-107) mmol/L Glucose 112 H (74-99) mg/dL POC Glucose (mg/dL) 111 H (75-99) mg/dL Microbiology - Last 24 Hours (Table) 08/02/16 16:42 Blood Culture - Preliminary Blood No Growth after 72 hours 08/02/16 16:43 Blood Culture - Preliminary Blood No Growth after 72 hours 08/01/16 15:35 Blood Culture - Final Blood 08/01/16 15:35 Blood Culture Gram Stain - Final Blood Blood Culture - Final Staph hominis sub sp. hominis Assessment and Plan Plan: 1. Neutropenic fever with gram-negative bacteremia, septicemia. Consult with Dr. Glez appreciated. Patient is currently on cefepime. Blood cultures are in progress. Patient has been followed by Dr. Bowling. Plan to continue ciprofloxacin for 14 days as an outpatient. 2. Acute myelogenous leukemia. Consult with Dr. Glez appreciated. 3. 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 Patient is status post platelet and packed RBC transfusion. Patient has been started on Zarxio. Monitor counts daily. Platelet transfusion today. 4. History of breast cancer, adenocarcinoma of the colon, neuroendocrine carcinoma of the small bowel. 5. Occult blood stool positive with no evidence of acute GI bleed. Dr. Varner is on consult. 6. Diabetes mellitus type 2, insulin requiring. Patient is on Novolin 70/30 20 units twice daily at home. Patient currently on Humalog scale. 7. Hypertension. Continue Norvasc 5 mg twice daily. 8. Hyperlipidemia. Continue Zocor 20 mg at bedtime. 9. Hypothyroidism. Continue levothyroxine 112 g daily. 10. Vitamin D deficiency. Continue calcium and vitamin D supplement. 11. Gastrointestinal prophylaxis. Continue Protonix 40 mg IV daily. 12. DVT prophylaxis. Heparin as not started due to thrombocytopenia. ALAINA zuniga and SCDs. Discharge plan: home tomorrow Impression and plan of care have been directed as dictated by the signing physician. Frida Coughlin nurse practitioner acting as scribe for signing physician. Time with Patient: Greater than 30
[2016-08-06 17:10] LABS: Glucose,Whole Blood 105 mg/dL (75-99)
[2016-08-06 20:05] LABS: Glucose,Whole Blood 127 mg/dL (75-99)
[2016-08-06] MEDS: ATORVASTATIN 10 MG TAB PO SCH (20:16)
--- NOTE | 2016-08-06 21:16 | PN ---
. Alla Bingham is seen, evaluated and examined. An 85-year-old female with severe anemia, thrombocytopenia and GI bleed which however has been stabilized. Due to severe thrombocytopenia, patient is being planned for transfusion of platelets as well. She is otherwise, awake, alert, breathing comfortably. Denies any chest pain, fever. ( ) stable and improved. Her last set of vitals include current temperature 97, T-max 99, blood pressure is 140/70, respiratory rate 16, pulse 80, temperature 98, saturation of 96%. HEENT: Unremarkable. NECK: Supple. LUNGS: Good air entry bilaterally. HEART: Regular rate and rhythm. S1 and S2 audible. ABDOMEN: Soft. No rebound or rigidity. EXTREMITIES: +1 peripheral pulses. NEUROLOGICAL: Otherwise awake and alert. Labs reviewed. Medications reviewed. Last chest x-ray performed 08/03/2016 revealed cardiomegaly, some prominent interstitium, otherwise unremarkable. Cultures were positive for E. coli. Repeat culture is positive for Staph hominis; however, most recent blood culture obtained on August 02 x2 have been negative for 72 over hours. The laboratory data reviewed. White cell count is 4800, hemoglobin 8.1, hematocrit 24, platelet count only 7,000. Chemistry otherwise within normal limits. IMPRESSION: 1. Severe sepsis related to febrile neutropenia and pancytopenia post chemotherapy with severe leukopenia, anemia and thrombocytopenia. 2. Bacteremia related to Escherichia coli. 3. Borderline hypokalemia. 4. History of acute leukemia on chemotherapy. PLAN: Continue empiric antibiotics. Continue supportive care. Other issues include hypertension, dyslipidemia, vitamin D deficiency and hypothyroidism, overall stable. Will maintain patient on peptic ulcer disease prophylaxis. For DVT prophylaxis, pneumatic compression device. Will follow.
--- NOTE | 2016-08-06 22:13 | P.PN ---
Subjective Principal diagnosis: Weakness 85-year-old female with a fascinating history of multiple cancers was recently hospitalized at the outside facility from July 02 through 2016. At the present time she had weakness and dizziness without evidence of anemia and received 3 units of packed red blood cells. Her EF was preserved and she was sent home. Now presents to our facility with significant generalized weakness. She was having evidence of fever significant anemia with a hemoglobin of 5.6 and a platelet count of 6. There is evidence of melena at the time of her admission and she was brought into the intensive care unit. Because of her fever and pancytopenia and buttocks were begun and the infectious diseases consultation was requested. As noted she has a history of multiple cancers that includes original diagnosis of breast carcinoma in 2013. She was treated with Arimidex with lumpectomy and sentinel node biopsy. 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 After which she was having difficulties with significant and ongoing anemia as well as pancytopenia. 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 And she was initiated therapy with Dacogen on 07/13/2016 Had evidence of ongoing gastrointestinal bleeding and is being seen by surgery as well as gastroenterology. Feeling better , awaiting platelets. Objective - Vital Signs Vital signs: Vital Signs Temp 97.1 F L 08/06/16 15:00 Pulse 82 08/06/16 15:00 Resp 18 08/06/16 15:00 BP 140/60 08/06/16 15:00 Pulse Ox 94 L 08/06/16 15:00 Intake & Output 08/06/16 08/06/16 08/07/16 06:59 18:59 06:59 Intake Total 1150 800 Balance 1150 800 Intake: IV 900 800 Sodium Chloride 0.9% 1, 900 800 000 ml @ 100 mls/hr IV . Q10H LIZETH Rx#:[id number] Intake, IV Titration 50 Amount Cefepime 2 gm In Sodium 50 Chloride 0.9% 50 ml @ 100 mls/hr IVPB Q12HR@0600, 1800 LIZETH Rx#:[id number] Oral 200 Other: Voiding Method Toilet # Voids 1 - Exam 85-year-old woman poor historian HEENT: Anicteric conjunctiva are pink and moist nasal mucosa grossly intact without significant lesions, there is no thrush.edentulous Neck: The neck is supple without significant lymphadenopathy or thyromegaly. Lungs: Good bilateral air entry without significant crackles or wheezing. There is no significant bronchial sounds. There is no egophony or dullness. Heart: Regular rate and rhythm with an audible S1-S2, no S3 no S4. There is no significant murmur click or rub, PMI was nondisplaced. Abdomen: Positive bowel sounds soft and nontender without palpable masses or organomegaly. There was no guarding or rebound. Extremities: The upper extremities have excellent pulses they are symmetric, scattered petechiae. No splinter hemorrhages were noted. The lower extremities are free from significant edema. The peripheral pulses were 2+ and symmetric. Neuro: Awake alert oriented to person place and time does not have acute gross focal sensory motor deficits - Labs CBC & Chem 7: 08/06/16 07:03 08/06/16 07:03 Labs: Abnormal Lab Results - Last 24 Hours (Table) 08/06/16 08/06/16 08/06/16 Range/Units 07:03 07:03 07:08 RBC 2.66 L (3.80-5.40) m/uL Hgb 8.1 L (11.4-16.0) gm/dL Hct 24.4 L (34.0-46.0) % Plt Count 7 L* D (150-450) k/uL Chloride 112 H (98-107) mmol/L Glucose 112 H (74-99) mg/dL POC Glucose (mg/dL) 111 H (75-99) mg/dL 08/06/16 08/06/16 08/06/16 Range/Units 11:20 17:07 20:04 RBC (3.80-5.40) m/uL Hgb (11.4-16.0) gm/dL Hct (34.0-46.0) % Plt Count (150-450) k/uL Chloride (98-107) mmol/L Glucose (74-99) mg/dL POC Glucose (mg/dL) 154 H 105 H 127 H (75-99) mg/dL Microbiology - Last 24 Hours (Table) 08/02/16 16:42 Blood Culture - Preliminary Blood No Growth after 96 hours 08/02/16 16:43 Blood Culture - Preliminary Blood No Growth after 96 hours Laboratory Results WBC 4.8 k/uL (3.8-10.6) 08/06/16 07:03 RBC 2.66 m/uL (3.80-5.40) L 08/06/16 07:03 Hgb 8.1 gm/dL (11.4-16.0) L 08/06/16 07:03 Hct 24.4 % (34.0-46.0) L 08/06/16 07:03 MCV 91.9 fL (80.0-100.0) 08/06/16 07:03 MCH 30.5 pg (25.0-35.0) 08/06/16 07:03 MCHC 33.2 g/dL (31.0-37.0) 08/06/16 07:03 RDW 14.7 % (11.5-15.5) 08/06/16 07:03 Plt Count 7 k/uL (150-450) L* D 08/06/16 07:03 Neutrophils % (Manual) 76.0 % 08/05/16 07:21 Band Neutrophils % 2.0 % 08/05/16 07:21 Lymphocytes % (Manual) 10.0 % 08/05/16 07:21 Monocytes % (Manual) 8.0 % 08/05/16 07:21 Eosinophils % (Manual) 1.0 % 08/05/16 07:21 Basophils % (Manual) 0.5 % 08/04/16 09:11 Metamyelocytes % 1.0 % 08/04/16 09:11 Myelocytes % 3.0 % 08/05/16 07:21 Blast Cells % 1.0 08/04/16 09:11 Neutrophils # (Manual) 4.0 k/uL (1.3-7.7) 08/05/16 07:21 Lymphocytes # (Manual) 0.5 k/uL (1.0-4.8) L 08/05/16 07:21 Monocytes # (Manual) 0.4 k/uL (0-1.0) 08/05/16 07:21 Eosinophils # (Manual) 0.1 k/uL (0-0.7) 08/05/16 07:21 Basophils # (Manual) 0.0 k/uL (0-0.2) 08/04/16 09:11 Nucleated RBCs 1 /100 WBC (0-0) H 08/05/16 07:21 Manual Slide Review Performed 08/05/16 07:21 Pathologist Review Cancelled 08/02/16 04:10 Poikilocytosis (manual Present 08/05/16 07:21 Anisocytosis Slight 08/01/16 12:16 Rouleaux Present 08/03/16 04:04 PT 11.1 sec (9.0-12.0) 08/01/16 12:10 INR 1.1 (<1.1) 08/01/16 12:10 APTT 22.4 sec (22.0-30.0) 08/01/16 12:10 Sodium 145 mmol/L (137-145) 08/06/16 07:03 Potassium 3.6 mmol/L (3.5-5.1) 08/06/16 07:03 Chloride 112 mmol/L (98-107) H 08/06/16 07:03 Carbon Dioxide 22 mmol/L (22-30) 08/06/16 07:03 Anion Gap 11 mmol/L 08/06/16 07:03 BUN 9 mg/dL (7-17) 08/06/16 07:03 Creatinine 0.65 mg/dL (0.52-1.04) 08/06/16 07:03 Est GFR (MDRD) Af Amer >60 (>60 ml/min/1.73 sqM) 08/06/16 07:03 Est GFR (MDRD) Non-Af >60 (>60 ml/min/1.73 sqM) 08/06/16 07:03 Glucose 112 mg/dL (74-99) H 08/06/16 07:03 POC Glucose (mg/dL) 127 mg/dL (75-99) H 08/06/16 20:04 POC Glu Cat Skinner ID Kaylie Gonzales 08/06/16 20:04 Plasma Lactic Acid Costa 1.5 mmol/L (0.7-2.0) 08/02/16 04:10 Calcium 8.7 mg/dL (8.4-10.2) 08/06/16 07:03 Phosphorus 2.6 mg/dL (2.5-4.5) 08/04/16 09:11 Magnesium 1.9 mg/dL (1.6-2.3) 08/04/16 09:11 Total Bilirubin 0.6 mg/dL (0.2-1.3) 08/04/16 09:11 AST 20 U/L (14-36) 08/04/16 09:11 ALT 27 U/L (9-52) 08/04/16 09:11 Alkaline Phosphatase 72 U/L (38-126) 08/04/16 09:11 Total Creatine Kinase 27 U/L (30-135) L 08/01/16 23:29 CK-MB (CK-2) 0.4 ng/mL (0.0-2.4) 08/01/16 23:29 CK-MB (CK-2) Rel Index 1.5 08/01/16 23:29 Troponin I <0.012 ng/mL (0.000-0.034) 08/01/16 23:29 Total Protein 7.7 g/dL (6.3-8.2) 08/04/16 09:11 Albumin 3.3 g/dL (3.5-5.0) L 08/04/16 09:11 Cortisol 16 ug/dL 08/01/16 12:10 Urine Color Yellow 08/01/16 12:41 Urine Appearance Clear (Clear) 08/01/16 12:41 Urine pH 6.5 (5.0-8.0) 08/01/16 12:41 Ur Specific [place] 1.019 (1.001-1.035) 08/01/16 12:41 Urine Protein Trace (Negative) H 08/01/16 12:41 Urine Glucose (UA) Negative (Negative) 08/01/16 12:41 Urine Ketones Negative (Negative) 08/01/16 12:41 Urine Blood Negative (Negative) 08/01/16 12:41 Urine Nitrate Negative (Negative) 08/01/16 12:41 Urine Bilirubin Negative (Negative) 08/01/16 12:41 Urine Urobilinogen <2.0 mg/dL (<2.0) 08/01/16 12:41 Ur Leukocyte Esterase Negative (Negative) 08/01/16 12:41 Stool Occult Blood Positive (Negative) H 08/01/16 15:32 Influenza Type A RNA Not Detected (Not Detectd) 08/01/16 11:40 Influenza Type B (PCR) Not Detected (Not Detectd) 08/01/16 11:40 Blood Type O Positive 08/04/16 13:23 Blood Type Recheck O Pos 08/05/16 10:43 Antibody Screen POSITIVE 08/04/16 13:23 Antibody Identification Anti-E 08/04/16 13:23 Direct Antiglob Test Positive 08/04/16 13:23 Crossmatch See Detail 08/01/16 12:10 Transfuse Platelets 08/06/2016 08/06/16 14:08 Tx Rx Implicated Unit 1 [id number] 08/05/16 10:43 Pre-Trans Blood Type O Positive 08/05/16 10:43 Pre-Trans Spec Appearnc Negative 08/05/16 10:43 Pre-Trans NATALIE IgG Negative 08/05/16 10:43 Pre-Trans NATALIE Poly Negative 08/05/16 10:43 Post-Trans Blood Type O Positive 08/05/16 10:43 Post-Trans Spec Appear Negative 08/05/16 10:43 Post-Trans NATALIE IgG Positive 08/05/16 10:43 Post-Trans NATALIE Poly Negative 08/05/16 10:43 Reaction Pathol Review See result comment 08/05/16 10:43 Spec Expiration Date 08/07/2016232208/04/16 13:23 Microbiology 08/02/16 16:42 Blood Blood Culture - Preliminary No Growth after 96 hours 08/02/16 16:43 Blood Blood Culture - Preliminary No Growth after 96 hours 08/01/16 15:35 Blood Blood Culture - Final 08/01/16 12:10 Blood Blood Culture - Final 08/01/16 15:35 Blood Blood Culture Gram Stain - Final 08/01/16 15:35 Blood Blood Culture - Final Staph hominis sub sp. hominis 08/01/16 12:10 Blood Blood Culture Gram Stain - Final 08/01/16 12:10 Blood Blood Culture - Final Escherichia coli 08/01/16 12:41 Urine,Voided Urine Culture - Final Assessment and Plan (1) Febrile neutropenia Narrative/Plan: 85-year-old female presents to hospital with severe weakness. Concerns to underlying sepsis Complicated by her history of acute myelogenous leukemia and pancytopenia with leukopenia. Antibiotic therapy with cefepime and vancomycin are being utilized at this time with a blood culture showing gram-negative monserrat as well as a gram-positive cocci. The cultures have not been finalized. The gram-negative monserrat as E. coli and the gram positive for coagulase-negative staph. Of note the coagulase-negative staph is into 2 cultures drawn the same moment and comments as only 1 culture. Patient is followed by her oncologist and filgrastim has been started. Albumin is low and will need to have further protein supplementation as she allows. Influenza testing was negative. Consequently the vancomycin therapy is discontinued. Cefepime is being utilized given her current situation and is adequate for the current pathogen. She's improved will likely discharge to home in the next few days as her platelets are improving She may complete a course of ciprofloxacin for 14 days for her gram-negative bacteremia and sepsis. Status: Acute (2) Acute myelogenous leukemia Status: Chronic (3) Pancytopenia Status: Acute
[2016-08-07] MEDS: CEFEPIME 2 GM in SODIUM CHLORIDE 0.9% 50 ML IVPB SCH (05:54)
[2016-08-07] MEDS: SODIUM CHLORIDE 0.9% 1,000 ML IV SCH ×2 (05:54→11:18)
[2016-08-07] MEDS: LEVOTHYROXINE 112 MCG TAB PO SCH (06:03)
[2016-08-07 07:13] LABS: Glucose,Whole Blood 119 mg/dL (75-99)
[2016-08-07] MEDS: INSULIN LISPRO (humaLOG) 300 UNIT/3 ML VIAL SQ SCH ×2 (07:18→12:29)
[2016-08-07 08:11] LABS: Anion Gap 10 mmol/L; Blood Urea Nitrogen 8 mg/dL (7-17); Carbon Dioxide 24 mmol/L (22-30); Chloride 107 mmol/L (98-107); Glucose 112 mg/dL (74-99); Non-African American GFR(MDRD) >60 (>60 ml/min/1.73 sqM); Potassium 3.7 mmol/L (3.5-5.1); Sodium 141 mmol/L (137-145)
[2016-08-07 08:13] LABS: CH 30.8; CHCM 35.9; HCT 21.9 % (34.0-46.0); HDW 3.25; HGB 7.6 gm/dL (11.4-16.0); MCH 29.9 pg (25.0-35.0); MCHC 34.7 g/dL (31.0-37.0); Mean Platelet Volume 7.7; RBC 2.53 m/uL (3.80-5.40); RDW 14.7 % (11.5-15.5)
[2016-08-07 08:17] LABS: MCV 86.3 fL (80.0-100.0)
[2016-08-07 08:18] LABS: WBC 1.6 k/uL (3.8-10.6)
[2016-08-07] MEDS: CALCIUM CARBONATE 500 MG CHEWABLE PO SCH (08:26)
[2016-08-07] MEDS: amLODIPine 5 MG TAB PO SCH (08:26)
[2016-08-07] MEDS: PANTOPRAZOLE 40 MG/10 ML VIAL IV SCH (08:27)
[2016-08-07] MEDS: ANASTROZOLE 1 MG TAB PO SCH (08:27)
[2016-08-07] MEDS ORDERED: POTASSIUM CHLORIDE ER 20 MEQ TAB.ER PO ONE (10:00)
[2016-08-07 11:33] VITALS: RESP 18
[2016-08-07] MEDS: CHOLECALCIFEROL 1,000 UNIT TAB PO SCH (11:35)
[2016-08-07 11:53] VITALS: BMI 28.7
[2016-08-07 12:17] LABS: Glucose,Whole Blood 149 mg/dL (75-99)
[2016-08-07 13:36] VITALS: BP 140/65; PULSE 75; TEMP 98.8
--- NOTE | 2016-08-07 14:47 | P.PN ---
Subjective Principal diagnosis: Weakness 85-year-old female with a fascinating history of multiple cancers was recently hospitalized at the outside facility from July 02 through 2016. At the present time she had weakness and dizziness without evidence of anemia and received 3 units of packed red blood cells. Her EF was preserved and she was sent home. Now presents to our facility with significant generalized weakness. She was having evidence of fever significant anemia with a hemoglobin of 5.6 and a platelet count of 6. There is evidence of melena at the time of her admission and she was brought into the intensive care unit. Because of her fever and pancytopenia and buttocks were begun and the infectious diseases consultation was requested. As noted she has a history of multiple cancers that includes original diagnosis of breast carcinoma in 2013. She was treated with Arimidex with lumpectomy and sentinel node biopsy. 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 After which she was having difficulties with significant and ongoing anemia as well as pancytopenia. 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 And she was initiated therapy with Dacogen on 07/13/2016 Had evidence of ongoing gastrointestinal bleeding and is being seen by surgery as well as gastroenterology. Feeling better , receiving platelets. potentially may be going home. Objective - Vital Signs Vital signs: Vital Signs Temp 98.8 F 08/07/16 13:35 Pulse 75 08/07/16 13:35 Resp 18 08/07/16 13:35 BP 140/65 08/07/16 13:35 Pulse Ox 98 08/07/16 13:35 Intake & Output 08/06/16 08/07/16 08/07/16 18:59 06:59 18:59 Intake Total 800 2236 1020 Balance 800 2236 1020 Weight 78.2 kg Intake: IV 800 800 600 Sodium Chloride 0.9% 1, 800 800 600 000 ml @ 100 mls/hr IV . Q10H [facility] Rx#:[id number] Oral 590 Blood Product 846 420 Platelet Irr Pheresis 420 Acda Unit [id number] Platelet Pheresis Acda 423 Unit [id number] Other: Voiding Method Toilet # Voids 3 - Exam 85-year-old woman poor historian HEENT: Anicteric conjunctiva are pink and moist nasal mucosa grossly intact without significant lesions, there is no thrush.edentulous Neck: The neck is supple without significant lymphadenopathy or thyromegaly. Lungs: Good bilateral air entry without significant crackles or wheezing. There is no significant bronchial sounds. There is no egophony or dullness. Heart: Regular rate and rhythm with an audible S1-S2, no S3 no S4. There is no significant murmur click or rub, PMI was nondisplaced. Abdomen: Positive bowel sounds soft and nontender without palpable masses or organomegaly. There was no guarding or rebound. Extremities: The upper extremities have excellent pulses they are symmetric, scattered petechiae. No splinter hemorrhages were noted. The lower extremities are free from significant edema. The peripheral pulses were 2+ and symmetric. Neuro: Awake alert oriented to person place and time does not have acute gross focal sensory motor deficits - Labs CBC & Chem 7: 08/07/16 07:42 08/07/16 07:42 Labs: Abnormal Lab Results - Last 24 Hours (Table) 08/06/16 08/06/16 08/07/16 Range/Units 17:07 20:04 07:01 WBC (3.8-10.6) k/uL RBC (3.80-5.40) m/uL Hgb (11.4-16.0) gm/dL Hct (34.0-46.0) % Plt Count (150-450) k/uL Glucose (74-99) mg/dL POC Glucose (mg/dL) 105 H 127 H 119 H (75-99) mg/dL 08/07/16 08/07/16 08/07/16 Range/Units 07:42 07:42 12:11 WBC 1.6 L* (3.8-10.6) k/uL RBC 2.53 L (3.80-5.40) m/uL Hgb 7.6 L (11.4-16.0) gm/dL Hct 21.9 L (34.0-46.0) % Plt Count 8 L* (150-450) k/uL Glucose 112 H (74-99) mg/dL POC Glucose (mg/dL) 149 H (75-99) mg/dL Microbiology - Last 24 Hours (Table) 08/02/16 16:42 Blood Culture - Preliminary Blood No Growth after 96 hours 08/02/16 16:43 Blood Culture - Preliminary Blood No Growth after 96 hours Laboratory Results WBC 1.6 k/uL (3.8-10.6) L* 08/07/16 07:42 RBC 2.53 m/uL (3.80-5.40) L 08/07/16 07:42 Hgb 7.6 gm/dL (11.4-16.0) L 08/07/16 07:42 Hct 21.9 % (34.0-46.0) L 08/07/16 07:42 MCV 86.3 fL (80.0-100.0) D 08/07/16 07:42 MCH 29.9 pg (25.0-35.0) 08/07/16 07:42 MCHC 34.7 g/dL (31.0-37.0) 08/07/16 07:42 RDW 14.7 % (11.5-15.5) 08/07/16 07:42 Plt Count 8 k/uL (150-450) L* 08/07/16 07:42 Neutrophils % (Manual) 76.0 % 08/05/16 07:21 Band Neutrophils % 2.0 % 08/05/16 07:21 Lymphocytes % (Manual) 10.0 % 08/05/16 07:21 Monocytes % (Manual) 8.0 % 08/05/16 07:21 Eosinophils % (Manual) 1.0 % 08/05/16 07:21 Basophils % (Manual) 0.5 % 08/04/16 09:11 Metamyelocytes % 1.0 % 08/04/16 09:11 Myelocytes % 3.0 % 08/05/16 07:21 Blast Cells % 1.0 08/04/16 09:11 Neutrophils # (Manual) 4.0 k/uL (1.3-7.7) 08/05/16 07:21 Lymphocytes # (Manual) 0.5 k/uL (1.0-4.8) L 08/05/16 07:21 Monocytes # (Manual) 0.4 k/uL (0-1.0) 08/05/16 07:21 Eosinophils # (Manual) 0.1 k/uL (0-0.7) 08/05/16 07:21 Basophils # (Manual) 0.0 k/uL (0-0.2) 08/04/16 09:11 Nucleated RBCs 1 /100 WBC (0-0) H 08/05/16 07:21 Manual Slide Review Performed 08/05/16 07:21 Pathologist Review Cancelled 08/02/16 04:10 Poikilocytosis (manual Present 08/05/16 07:21 Anisocytosis Slight 08/01/16 12:16 Rouleaux Present 08/03/16 04:04 PT 11.1 sec (9.0-12.0) 08/01/16 12:10 INR 1.1 (<1.1) 08/01/16 12:10 APTT 22.4 sec (22.0-30.0) 08/01/16 12:10 Sodium 141 mmol/L (137-145) 08/07/16 07:42 Potassium 3.7 mmol/L (3.5-5.1) 08/07/16 07:42 Chloride 107 mmol/L (98-107) 08/07/16 07:42 Carbon Dioxide 24 mmol/L (22-30) 08/07/16 07:42 Anion Gap 10 mmol/L 08/07/16 07:42 BUN 8 mg/dL (7-17) 08/07/16 07:42 Creatinine 0.68 mg/dL (0.52-1.04) 08/07/16 07:42 Est GFR (MDRD) Af Amer >60 (>60 ml/min/1.73 sqM) 08/07/16 07:42 Est GFR (MDRD) Non-Af >60 (>60 ml/min/1.73 sqM) 08/07/16 07:42 Glucose 112 mg/dL (74-99) H 08/07/16 07:42 POC Glucose (mg/dL) 149 mg/dL (75-99) H 08/07/16 12:11 POC Glu [employer] ID Augusto Aaron 08/07/16 12:11 Plasma Lactic Acid [place] 1.5 mmol/L (0.7-2.0) 08/02/16 04:10 Calcium 9.0 mg/dL (8.4-10.2) 08/07/16 07:42 Phosphorus 2.6 mg/dL (2.5-4.5) 08/04/16 09:11 Magnesium 1.9 mg/dL (1.6-2.3) 08/04/16 09:11 Total Bilirubin 0.6 mg/dL (0.2-1.3) 08/04/16 09:11 AST 20 U/L (14-36) 08/04/16 09:11 ALT 27 U/L (9-52) 08/04/16 09:11 Alkaline Phosphatase 72 U/L (38-126) 08/04/16 09:11 Total Creatine Kinase 27 U/L (30-135) L 08/01/16 23:29 CK-MB (CK-2) 0.4 ng/mL (0.0-2.4) 08/01/16 23:29 CK-MB (CK-2) Rel Index 1.5 08/01/16 23:29 Troponin I <0.012 ng/mL (0.000-0.034) 08/01/16 23:29 Total Protein 7.7 g/dL (6.3-8.2) 08/04/16 09:11 Albumin 3.3 g/dL (3.5-5.0) L 08/04/16 09:11 Cortisol 16 ug/dL 08/01/16 12:10 Urine Color Yellow 08/01/16 12:41 Urine Appearance Clear (Clear) 08/01/16 12:41 Urine pH 6.5 (5.0-8.0) 08/01/16 12:41 Ur Specific [place] 1.019 (1.001-1.035) 08/01/16 12:41 Urine Protein Trace (Negative) H 08/01/16 12:41 Urine Glucose (UA) Negative (Negative) 08/01/16 12:41 Urine Ketones Negative (Negative) 08/01/16 12:41 Urine Blood Negative (Negative) 08/01/16 12:41 Urine Nitrate Negative (Negative) 08/01/16 12:41 Urine Bilirubin Negative (Negative) 08/01/16 12:41 Urine Urobilinogen <2.0 mg/dL (<2.0) 08/01/16 12:41 Ur Leukocyte Esterase Negative (Negative) 08/01/16 12:41 Stool Occult Blood Positive (Negative) H 08/01/16 15:32 Influenza Type A RNA Not Detected (Not Detectd) 08/01/16 11:40 Influenza Type B (PCR) Not Detected (Not Detectd) 08/01/16 11:40 Blood Type O Positive 08/04/16 13:23 Blood Type Recheck O Pos 08/05/16 10:43 Antibody Screen POSITIVE 08/04/16 13:23 Antibody Identification Anti-E 08/04/16 13:23 Direct Antiglob Test Positive 08/04/16 13:23 Crossmatch See Detail 08/01/16 12:10 Transfuse Platelets 08/06/2016 08/06/16 14:08 Tx Rx Implicated Unit 1 [id number] 08/05/16 10:43 Reaction Clerical Check Pass 08/05/16 10:43 Pre-Trans Blood Type O Positive 08/05/16 10:43 Pre-Trans Spec Appearnc Negative 08/05/16 10:43 Pre-Trans NATALIE IgG Negative 08/05/16 10:43 Pre-Trans NATALIE Poly Negative 08/05/16 10:43 Post-Trans Blood Type O Positive 08/05/16 10:43 Post-Trans Spec Appear Negative 08/05/16 10:43 Post-Trans NATALIE IgG Positive 08/05/16 10:43 Post-Trans NATALIE Poly Negative 08/05/16 10:43 Reaction Pathol Review See result comment 08/05/16 10:43 Spec Expiration Date 08/07/2016 - 232208/04/16 13:23 Microbiology 08/02/16 16:42 Blood Blood Culture - Preliminary No Growth after 96 hours 08/02/16 16:43 Blood Blood Culture - Preliminary No Growth after 96 hours 08/01/16 15:35 Blood Blood Culture - Final 08/01/16 12:10 Blood Blood Culture - Final 08/01/16 15:35 Blood Blood Culture Gram Stain - Final 08/01/16 15:35 Blood Blood Culture - Final Staph hominis sub sp. hominis 08/01/16 12:10 Blood Blood Culture Gram Stain - Final 08/01/16 12:10 Blood Blood Culture - Final Escherichia coli 08/01/16 12:41 Urine,Voided Urine Culture - Final Assessment and Plan (1) Febrile neutropenia Narrative/Plan: 85-year-old female presents to hospital with severe weakness. Concerns to underlying sepsis Complicated by her history of acute myelogenous leukemia and pancytopenia with leukopenia. Antibiotic therapy with cefepime and vancomycin are being utilized at this time with a blood culture showing gram-negative monserrat as well as a gram-positive cocci. The cultures have not been finalized. The gram-negative monserrat as E. coli and the gram positive for coagulase-negative staph. Of note the coagulase-negative staph is into 2 cultures drawn the same moment and comments as only 1 culture. Patient is followed by her oncologist and filgrastim has been started. Albumin is low and will need to have further protein supplementation as she allows. Influenza testing was negative. Consequently the vancomycin therapy is discontinued. Cefepime is being utilized given her current situation and is adequate for the current pathogen. She's improved will likely discharge to home in the next short period of time as her platelets are improving She may complete a course of ciprofloxacin for 14 days for her gram-negative bacteremia and sepsis. Status: Acute (2) Acute myelogenous leukemia Status: Chronic (3) Pancytopenia Status: Acute
[2016-08-07] MEDS ORDERED: FILGRASTIM-SNDZ 480 MCG/0.8 ML SYRINGE SQ SCH (15:00)
--- NOTE | 2016-08-07 17:06 | PN ---
DATE OF SERVICE: 08/07/2016 Patient seen, evaluated, and examined. This patient has been admitted to hospital with gastrointestinal bleed, severe degree of thrombocytopenia and pancytopenia and gram-negative bacteremia. The patient responded with platelet transfusion yesterday. Hemodynamic status is stable. Last set of vitals include blood pressure is 146/67, respiratory rate 16, pulse 83, temperature 99, saturation on 94% on room air. HEENT EXAMINATION: Otherwise unremarkable. NECK: Supple. LUNGS: Good air entry bilaterally. HEART: Regular rate and rhythm. ABDOMEN: Soft. NEUROLOGICAL EXAMINATION: Otherwise awake and alert. Labs reviewed. Medications reviewed as well. LABORATORY DATA: Reviewed. White cell count is 1600, hemoglobin 7.6 and hematocrit 21.9, platelet count 8000 only. IMPRESSION: 1. Severe degree of pancytopenia post chemotherapy. 2. Gram-negative bacteremia. 3. Febrile neutropenia related to above. 4. Gastrointestinal bleed related to severe thrombocytopenia. Plan is to continue supportive care. Continue broad-spectrum antibiotics. Monitor hemoglobin and platelets closely, transfusion of hemoglobin and platelet as per the Oncology/Hematology service. Will follow.
--- NOTE | 2016-08-14 17:05 | P.DS ---
Providers Date of admission: 08/01/16 13:42 Expected date of discharge: 08/07/16 Attending physician: Amanda Barriga Consults: 08/01/16 13:46 Consult Physician Urgent Consulting Provider: Mary Ann Varner Consult Reason/Comments: anemia Do you want consulting provider notified?: Yes 08/01/16 16:10 Consult Physician Urgent Consulting Provider: Boaz Salas Consult Reason/Comments: critical care Do you want consulting provider notified?: Yes 08/02/16 10:29 Consult Physician Routine Consulting Provider: Rubén Bowling Consult Reason/Comments: gram negative bacterimnia Do you want consulting provider notified?: Yes Primary care physician: [facility] Course: This is an 85-year-old female. Her primary care physician is Dr. Pride. She has a past medical history of diabetes mellitus type 2 insulin- requiring, hypertension, hyperlipidemia, hypothyroidism, breast cancer, colon cancer status post bowel resection, acute myelogenous leukemia, pancytopenia, vitamin D deficiency. Patient had a recent hospitalization at [facility] at which time she was admitted from July 02 through 2016. She was treated for anemia and was transfused with 3 units of packed RBCs. Her troponins were elevated 0.33 and this was thought to be due to the anemia. Her EF was 55-60% patient states that she noticed her vision was fuzzy the past 2 days when she got up in the morning and then that would clear in the next hour and a half to 2 hours. She also states that her sister didn't like the color of her skin or her lips and made her come into the hospital. She denies having any abdominal pain she denies any falls. She does have chronic diarrhea. She states her first bowel movement in the morning is usually formed and then her stools are loose throughout the day and she goes 5-6 times depending on what she eats. She denies having any lightheadedness or dizziness. She does receive outpatient transfusions in the last one was on July 24. Patient presented to [facility] emergency center. She was found to have a fever of 100.6, thrombocytopenia with white count of 1.3, hemoglobin 5.6 and platelet count 6. Troponin was negative. Influenza A and B by PCR not detected. Electrolytes, kidney and liver functions within normal limits. Urinalysis negative. CAT scan of the brain showed no acute process. Chest x-ray showed no acute process. Patient did have a bloody bowel movement while in the emergency center. Patient was admitted to the intensive care unit , consult with Dr. Salas requested for intensive care management and oncology consult placed. Consult with Dr. Varner for anemia. Blood cultures were obtained. She received 1 dose of Levaquin and vancomycin in the emergency center. She is currently on Cefepime. She is status post transfusion of platelets and packed RBCs. She has not required vasopressors. She has been seen by Dr. 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 CAT scan revealed inflammatory changes in the bowel and lung nodules. PET scan in June 2015 did not reveal any evidence of metastatic disease. 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 Due to severe anemia in April 2016 she underwent a bone marrow biopsy which was consistent with acute myelogenous leukemia. Patient decided to start Dacogen which was done on 07/13/2016 and completed 1 cycle on 07/17/2016. Patient is also followed by Dr. Salas for intensive care management. She has been seen by Dr. Varner for anemia. Occult stool was positive but no evidence of acute GI bleed. No procedures planned at this time. 08/03: no significant the drop in hemoglobin in the last 24 hours patient is more stable not having any active GI bleed, white blood cell hemoglobin and platelet remain low. Temperature is much better. Patient still on protocol and treatment for neutropenia. Patient be transfer out of the ICU today continue current management Will increase diet today. 08/04: Hemodynamically patient is much better today, hemoglobin is slightly bit lower slightly below 8 but no need for blood transfusion so far. WBC has improved since yesterday but platelet count remain intubated low and patient remain on severe thrombocytopenia with no sign of bleeding. Infectious disease has finalize a culture and patient will be on oral antibiotics when she leaves the hospital possibly tomorrow. With general surgery patient has not had any further GI bleed no need to do any EGD or lower gastroscopy at this point. 08/05: Patient does not require any blood transfusion at this point platelet remain slightly bit low we'll continue antibiotics and hopefully prepare for home tomorrow. 08/06: Dr. Bowling as recommended ciprofloxacin for 14 day course. 08/07: She will be discharged home today in stable condition. Currently her lab work shows WBC 1.6, hemoglobin 7.6, platelet count 8. Discharge diagnoses: 1. Neutropenic fever. 2. Acute myelogenous leukemia. 3. 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 4. History of breast cancer, adenocarcinoma of the colon, neuroendocrine carcinoma of the small bowel. 5. Occult blood stool positive with concern for possible acute GI bleed. 6. Diabetes mellitus type 2, insulin requiring. 7. Hypertension. 8. Hyperlipidemia. 9. Hypothyroidism. 10. Vitamin D deficiency. Discharge plan: home with mother clear and home care Impression and plan of care have been directed as dictated by the signing physician. Frida Coughlin nurse practitioner acting as scribe for signing physician. Patient Condition at Discharge: Good Plan - Discharge Summary New Discharge Prescriptions: Ciprofloxacin HCl [Cipro] 500 mg PO Q12HR #28 tablet Discharge Medication List Acetaminophen [Tylenol 8 Hour] 650 mg PO QID PRN 06/03/16 [History] Anastrozole [Arimidex] 1 mg PO DAILY 06/03/16 [History] Calcium Carbonate [Calcium] 600 mg PO DAILY 06/03/16 [History] Cholecalciferol [Vitamin D3] 1,000 unit PO DAILY 06/03/16 [History] Diphenoxylate HCl/Atropine [Lomotil] 1 - 2 tab PO QID PRN 06/03/16 [History] Levothyroxine Sodium [Synthroid] 112 mcg PO DAILY 06/03/16 [History] Simvastatin [Zocor] 20 mg PO HS 06/03/16 [History] Ubidecarenone [Co Q-10] 1 cap PO DAILY 06/03/16 [History] amLODIPine BESYLATE [Norvasc] 5 mg PO BID 06/03/16 [History] Insulin NPH Hum/Reg Insulin Hm [NovoLIN 70-30 100 UNIT/ML VIAL] 20 unit SQ AC- BID 08/01/16 [History] Psyllium Husk 100% [Metamucil Packet] 6 gm PO DAILY PRN 08/01/16 [History] Ciprofloxacin HCl [Cipro] 500 mg PO Q12HR #28 tablet 08/06/16 [Rx] Follow up Appointment(s)/Referral(s): Rubén Pride MD [Primary Care Provider] - 1 Week (Office closed; patient to make own on Wednesday.) Boaz Salas MD [STAFF PHYSICIAN] - 1 Week (Office closed; patient to make own appointment on Wednesday.) Andreina Glez MD [STAFF PHYSICIAN] - 08/18/16 9:30 am (No chemo next week.) Activity/Diet/Wound Care/Special Instructions: [facility]-[phone] Discharge Disposition: HOME WITH HOME HEALTH SERVICES
== END 2016-08-07 19:56 | disposition home health service (06) | DRG 871 ==
LOC: EC 10:33 → 5ONC 13:42 → 6ICU 16:10 → 5MS5E 08-03 14:27 → 5ONC 08-05 18:06
PROVIDERS: ADMIT Family Medicine; ATTEND Family Medicine
PROC: 30233R1 Transfusion of Nonautologous Platelets into Peripheral Vein, Percutaneous Approach (ICD-10-PCS; principal; 2016-08-06)
DX: A41.51 Sepsis due to Escherichia coli [E. coli] (principal); D61.810 Antineoplastic chemotherapy induced pancytopenia; C92.00 Acute myeloblastic leukemia, not having achieved remission; E87.2 Acidosis; D68.9 Coagulation defect, unspecified; J98.11 Atelectasis; E03.9 Hypothyroidism, unspecified; E11.9 Type 2 diabetes mellitus without complications; E55.9 Vitamin D deficiency, unspecified; E78.5 Hyperlipidemia, unspecified; E87.6 Hypokalemia; I11.9 Hypertensive heart disease without heart failure; I51.7 Cardiomegaly; K52.9 Noninfective gastroenteritis and colitis, unspecified; R65.20 Severe sepsis without septic shock; T45.1X5A Adverse effect of antineoplastic and immunosuppressive drugs, initial encounter; Z79.4 Long term (current) use of insulin; Z82.49 Family history of ischemic heart disease and other diseases of the circulatory system; Z85.038 Personal history of other malignant neoplasm of large intestine; Z85.3 Personal history of malignant neoplasm of breast; Z87.891 Personal history of nicotine dependence; Z90.49 Acquired absence of other specified parts of digestive tract; Z79.899 Other long term (current) drug therapy
CPT/HCPCS: 36415; 70450; 71010; 71020; 80048; 80053; 81003; 82272; 82533; 82550; 82553; 83605; 83735; 84100; 84484; 85025; 85027; 85610; 85730; 86850; 86860; 86870; 86880; 86885; 86900; 86901; 86920; 87040; 87077; 87086; 87186; 87502; 93005; 96361; 96365; 99291

== ENCOUNTER 2016-08-12 10:18 | Inpatient (IN) | payer MEDICARE, BC ==
[2016-08-12] MEDS ORDERED: SODIUM CHLORIDE 0.9% 1,000 ML IV STA ×2 (11:06)
--- NOTE | 2016-08-12 11:10 | ED ---
Recheck HPI - General Chief Complaint: Recheck/Abnormal Lab/Rx Stated Complaint: WANTS BLOOD COUNT CHECKED, Hx OF LEUKEMIA Time Seen by Provider: 08/12/16 10:45 Source: patient, family, RN notes reviewed, old records reviewed Mode of arrival: ambulatory Limitations: no limitations - History of Present Illness Initial Comments: This 85-year-old female with a history of breast cancer and also a recent history of anemia which did require platelet and red blood cell transfusion was discharged from the hospital 5 days ago who is back today with complaints of weakness some blurred vision temperature of 100 decreased appetite being listless and lethargic. No cough reported no nausea vomiting no diarrhea no dysuria. Family is concerned that her blood counts are low again. MD Complaint: abnormal lab, other - Related Data Home Medications Medication Instructions Recorded Confirmed Acetaminophen [Tylenol 8 Hour] 650 mg PO QID PRN 06/03/16 08/12/16 Anastrozole [Arimidex] 1 mg PO DAILY 06/03/16 08/12/16 Calcium Carbonate [Calcium] 600 mg PO DAILY 06/03/16 08/12/16 Cholecalciferol [Vitamin D3] 1,000 unit PO DAILY 06/03/16 08/12/16 Diphenoxylate HCl/Atropine 1 - 2 tab PO QID PRN 06/03/16 08/12/16 [Lomotil] Levothyroxine Sodium [Synthroid] 112 mcg PO DAILY 06/03/16 08/12/16 Simvastatin [Zocor] 20 mg PO HS 06/03/16 08/12/16 Ubidecarenone [Co Q-10] 1 cap PO DAILY 06/03/16 08/12/16 amLODIPine BESYLATE [Norvasc] 5 mg PO BID 06/03/16 08/12/16 Insulin NPH Hum/Reg Insulin Hm 20 unit SQ AC-BID 08/01/16 08/12/16 [NovoLIN 70-30 100 UNIT/ML VIAL] Psyllium Husk 100% [Metamucil 6 gm PO DAILY PRN 08/01/16 08/12/16 Packet] Previous Rx's Medication Instructions Recorded Ciprofloxacin HCl [Cipro] 500 mg PO Q12HR #28 tablet 08/06/16 Allergies Allergy/AdvReac Type Severity Reaction Status Date / Time No Known Allergies Allergy Verified 08/12/16 10:58 Review of Systems ROS Statement: Those systems with pertinent positive or pertinent negative responses have been documented in the HPI. ROS Other: All systems not noted in ROS Statement are negative. 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 Retired. No experience. No travels. No tobacco history no significant history of alcohol use Smoking Status: Former smoker Past Alcohol Use History: None Reported Additional Past Alcohol Use History / Comment(s): Patient smoked a half a pack a day for 50 years and quit in 2007. She denies any alcohol or illegal drug use. She is and lives with her sister. She is quite active she does not have oxygen, nebulizer, CPAP. She does not need cane or walker. Past Drug Use History: None Reported - Past Family History Father Additional Family Medical History / Comment(s): Father at age 78 from lung cancer. Mother Additional Family Medical History / Comment(s): Mother at age 78 from brain hemorrhage. Brother(s) Additional Family Medical History / Comment(s): Patient has 6 siblings with medical problems including diabetes, hypertension, breast cancer. Daughter(s) Additional Family Medical History / Comment(s): She has one daughter that from breast cancer. General Exam - General Exam Comments Initial Comments: This is a well-developed well-nourished pale appearing female Limitations: no limitations General appearance: alert, in no apparent distress Head exam: Present: atraumatic, normocephalic, normal inspection Eye exam: Present: normal appearance, PERRL, EOMI. Absent: scleral icterus, conjunctival injection, periorbital swelling ENT exam: Present: mucous membranes dry, other (There is a sore noted on the mid lower lip no active bleeding drainage or discharge.) Neck exam: Present: normal inspection. Absent: tenderness, meningismus, lymphadenopathy Respiratory exam: Present: decreased breath sounds Cardiovascular Exam: Present: regular rate, normal rhythm, systolic murmur GI/Abdominal exam: Present: soft, normal bowel sounds. Absent: distended, tenderness, guarding, rebound, rigid Extremities exam: Present: normal inspection, full ROM, normal capillary refill. Absent: tenderness, pedal edema, joint swelling, calf tenderness Back exam: Present: normal inspection Neurological exam: Present: alert, oriented X3, CN II-XII intact Psychiatric exam: Present: normal affect, normal mood Skin exam: Present: warm, dry, intact, normal color. Absent: rash Course Vital Signs 08/12/16 08/12/16 08/12/16 10:31 12:11 12:41 Temperature 100 F H Pulse Rate 84 72 68 Respiratory 18 20 18 Rate Blood Pressure 111/56 131/62 115/56 O2 Sat by Pulse 99 99 96 Oximetry 08/12/16 08/12/16 13:11 13:46 Temperature 98.3 F Pulse Rate 72 76 Respiratory 20 18 Rate Blood Pressure 116/50 122/53 O2 Sat by Pulse 97 96 Oximetry Medical Decision Making - Medical Decision Making Did discuss findings with the patient family and with Dr. Cortez who is covering for Dr. Glez. Patient be admitted transfusion has been ordered. - Lab Data Result diagrams: 08/12/16 11:24 08/12/16 11:24 Lab Results 08/12/16 08/12/16 08/12/16 Range/Units 11:24 11:24 11:24 WBC 0.7 L* (3.8-10.6) k/uL RBC 2.08 L (3.80-5.40) m/uL Hgb 6.2 L* (11.4-16.0) gm/dL Hct 18.3 L* (34.0-46.0) % MCV 88.1 (80.0-100.0) fL MCH 29.7 (25.0-35.0) pg MCHC 33.7 (31.0-37.0) g/dL RDW 14.0 (11.5-15.5) % Plt Count 13 L* D (150-450) k/uL Differential Comment P Manual Slide Review Performed Poikilocytosis (manual Present Anisocytosis (manual) Present Tear Drop Cells Present Rouleaux Present Sodium 144 (137-145) mmol/L Potassium 4.5 (3.5-5.1) mmol/L Chloride 105 (98-107) mmol/L Carbon Dioxide 28 (22-30) mmol/L Anion Gap 11 mmol/L BUN 13 (7-17) mg/dL Creatinine 0.76 (0.52-1.04) mg/dL Est GFR (MDRD) Af Amer >60 (>60 ml/min/1.73 sqM) Est GFR (MDRD) Non-Af >60 (>60 ml/min/1.73 sqM) Glucose 97 (74-99) mg/dL Calcium 9.4 (8.4-10.2) mg/dL Magnesium 2.0 (1.6-2.3) mg/dL Total Bilirubin 0.5 (0.2-1.3) mg/dL AST 13 L (14-36) U/L ALT 18 (9-52) U/L Alkaline Phosphatase 62 (38-126) U/L Total Creatine Kinase <20 L (30-135) U/L CK-MB (CK-2) 0.3 (0.0-2.4) ng/mL CK-MB (CK-2) Rel Index 0.0 Troponin I <0.012 (0.000-0.034) ng/mL Total Protein 7.5 (6.3-8.2) g/dL Albumin 3.3 L (3.5-5.0) g/dL Urine Color Urine Appearance (Clear) Urine pH (5.0-8.0) Ur Specific [place] (1.001-1.035) Urine Protein (Negative) Urine Glucose (UA) (Negative) Urine Ketones (Negative) Urine Blood (Negative) Urine Nitrate (Negative) Urine Bilirubin (Negative) Urine Urobilinogen (<2.0) mg/dL Ur Leukocyte Esterase (Negative) Urine RBC (0-5) /hpf Urine WBC (0-5) /hpf Ur Squamous Epith Cells (0-4) /hpf Urine Bacteria (None) /hpf Urine Mucus (None) /hpf Transfuse Platelets 08/12/16 08/12/16 Range/Units 11:24 13:18 WBC (3.8-10.6) k/uL RBC (3.80-5.40) m/uL Hgb (11.4-16.0) gm/dL Hct (34.0-46.0) % MCV (80.0-100.0) fL MCH (25.0-35.0) pg MCHC (31.0-37.0) g/dL RDW (11.5-15.5) % Plt Count (150-450) k/uL Differential Comment Manual Slide Review Poikilocytosis (manual Anisocytosis (manual) Tear Drop Cells Rouleaux Sodium (137-145) mmol/L Potassium (3.5-5.1) mmol/L Chloride (98-107) mmol/L Carbon Dioxide (22-30) mmol/L Anion Gap mmol/L BUN (7-17) mg/dL Creatinine (0.52-1.04) mg/dL Est GFR (MDRD) Af Amer (>60 ml/min/1.73 sqM) Est GFR (MDRD) Non-Af (>60 ml/min/1.73 sqM) Glucose (74-99) mg/dL Calcium (8.4-10.2) mg/dL Magnesium (1.6-2.3) mg/dL Total Bilirubin (0.2-1.3) mg/dL AST (14-36) U/L ALT (9-52) U/L Alkaline Phosphatase (38-126) U/L Total Creatine Kinase (30-135) U/L CK-MB (CK-2) (0.0-2.4) ng/mL CK-MB (CK-2) Rel Index Troponin I (0.000-0.034) ng/mL Total Protein (6.3-8.2) g/dL Albumin (3.5-5.0) g/dL Urine Color Yellow Urine Appearance Clear (Clear) Urine pH 5.5 (5.0-8.0) Ur Specific [place] 1.019 (1.001-1.035) Urine Protein 1+ H (Negative) Urine Glucose (UA) Negative (Negative) Urine Ketones Negative (Negative) Urine Blood Negative (Negative) Urine Nitrate Negative (Negative) Urine Bilirubin Negative (Negative) Urine Urobilinogen <2.0 (<2.0) mg/dL Ur Leukocyte Esterase Negative (Negative) Urine RBC <1 (0-5) /hpf Urine WBC 2 (0-5) /hpf Ur Squamous Epith Cells 1 (0-4) /hpf Urine Bacteria Rare H (None) /hpf Urine Mucus Rare H (None) /hpf Transfuse Platelets 08/12/2016 - EKG Data -: EKG Interpreted by Me EKG shows normal: sinus rhythm (Sinus rhythm rate 68. Interval 144 QRS duration 86 QT/QTC 416/442 this is a normal-appearing EKG.) - Radiology Data Radiology results: report reviewed (I did review the imaging a reports no acute findings.), image reviewed Disposition Clinical Impression: Anemia, Thrombocytopenia, AML (acute myeloblastic leukemia) Disposition: ADMITTED IP TO THIS [facility] Condition: Serious Referrals: Rubén Pride MD [Primary Care Provider] - 1-2 days
[2016-08-12 11:44] LABS: Aty Lym Flag Slight; CH 30.9; CHCM 35.2; HDW 3.18; MCH 29.7 pg (25.0-35.0); MCHC 33.7 g/dL (31.0-37.0); MCV 88.1 fL (80.0-100.0); RBC 2.08 m/uL (3.80-5.40); WBC (Perox) 0.65
[2016-08-12 11:56] LABS: HCT 18.3 % (34.0-46.0); HGB 6.2 gm/dL (11.4-16.0); WBC 0.7 k/uL (3.8-10.6)
[2016-08-12 12:00] LABS: ALT 18 U/L (9-52); AST 13 U/L (14-36); Alkaline Phosphatase 62 U/L (38-126); Anion Gap 11 mmol/L; Blood Urea Nitrogen 13 mg/dL (7-17); Calcium 9.4 mg/dL (8.4-10.2); Carbon Dioxide 28 mmol/L (22-30); Chloride 105 mmol/L (98-107); Glucose 97 mg/dL (74-99); Non-African American GFR(MDRD) >60 (>60 ml/min/1.73 sqM); Potassium 4.5 mmol/L (3.5-5.1); Sodium 144 mmol/L (137-145); Total Bilirubin 0.5 mg/dL (0.2-1.3); Total Protein 7.5 g/dL (6.3-8.2)
[2016-08-12 12:03] LABS: Creatine Kinase <20 U/L (30-135)
[2016-08-12 12:15] LABS: Creatine Kinase MB 0.3 ng/mL (0.0-2.4); Troponin I <0.012 ng/mL (0.000-0.034)
[2016-08-12 12:27] LABS: Add Differential Manual Differential
[2016-08-12 12:28] LABS: Tear Drop Cells Present
[2016-08-12 12:29] LABS: Manual Review Performed; Rouleaux Present
--- NOTE | 2016-08-12 12:31 | XR ---
EXAMINATION TYPE: XR chest 2V DATE OF EXAM: 08/12/2016 12:20 PM COMPARISON: Prior chest x-ray July HISTORY: Cough TECHNIQUE: Frontal and lateral views of the chest are obtained. FINDINGS: Prominent lung lines are present, there are coronary artery calcifications. Surgical clips are present within the right lower chest, within the breast. No pneumonia, pneumothorax, or pleural effusion. Suspect improvement in interstitial changes. Heart is enlarged. Pulmonary vascularity and h reny are within normal limits. IMPRESSION: Cardiomegaly, postop changes. Suspect improvement in aeration.
[2016-08-12 13:45] LABS: Appearance,Urine Clear (Clear); Bacteria,Urine Rare /hpf; Bilirubin,Urine Negative (Negative); Glucose,Urine (UA) Negative (Negative); Ketones,Urine Negative (Negative); Leukocyte Esterase,Urine Negative (Negative); Mucus,Urine Rare /hpf; Nitrite,Urine Negative (Negative); PH, Urine 5.5 (5.0-8.0); Particle Count 3500; Protein,Urine 1+ (Negative); RBC,Urine <1 /hpf (0-5); Specific Gravity,Urine 1.019 (1.001-1.035); Squamous Epithelial Cell,Urine 1 /hpf (0-4); UA Billing (MACRO vs. MICRO) MICRO; Urobilinogen,Urine <2.0 mg/dL (<2.0); WBC,Urine 2 /hpf (0-5)
[2016-08-12] MEDS ORDERED: NALOXONE 0.4 MG/ML 1 ML VIAL IV PRN (14:18)
[2016-08-12] MEDS ORDERED: PSYLLIUM HUSK 100% 6 GM PACKET PO PRN (14:20)
[2016-08-12] MEDS: ACETAMINOPHEN TAB 325 MG TAB PO PRN (17:53)
[2016-08-12] MEDS: INSULIN NPH/REG INSULIN 70/30 300 UNIT/3 ML VIAL SQ SCH (18:10)
[2016-08-12 18:21] LABS: Glucose,Whole Blood 84 mg/dL (75-99)
[2016-08-12 20:59] LABS: Glucose,Whole Blood 125 mg/dL (75-99)
[2016-08-12] MEDS: ATORVASTATIN 10 MG TAB PO SCH (22:12)
[2016-08-12] MEDS: CIPROFLOXACIN HCL 500 MG TAB PO SCH (22:12)
[2016-08-12] MEDS: amLODIPine 5 MG TAB PO SCH (22:12)
[2016-08-13 03:01] LABS: Glucose,Whole Blood 129 mg/dL (75-99)
[2016-08-13] MEDS: LEVOTHYROXINE 112 MCG TAB PO SCH (06:14)
[2016-08-13 07:28] LABS: Glucose,Whole Blood 122 mg/dL (75-99)
[2016-08-13] MEDS: INSULIN NPH/REG INSULIN 70/30 300 UNIT/3 ML VIAL SQ SCH ×2 (07:37→17:41)
[2016-08-13] MEDS: CALCIUM CARBONATE 500 MG CHEWABLE PO SCH (07:38)
[2016-08-13] MEDS: CIPROFLOXACIN HCL 500 MG TAB PO SCH (07:38)
[2016-08-13] MEDS: ANASTROZOLE 1 MG TAB PO SCH (07:38)
[2016-08-13] MEDS: amLODIPine 5 MG TAB PO SCH ×2 (07:38→20:29)
[2016-08-13] MEDS: CHOLECALCIFEROL 1,000 UNIT TAB PO SCH (07:38)
[2016-08-13 07:52] LABS: Aty Lym Flag Slight; CH 30.1; CHCM 34.5; HCT 25.2 % (34.0-46.0); HDW 3.17; HGB 8.5 gm/dL (11.4-16.0); MCH 29.7 pg (25.0-35.0); MCHC 33.9 g/dL (31.0-37.0); MCV 87.6 fL (80.0-100.0); Mean Platelet Volume 8.1; RBC 2.88 m/uL (3.80-5.40); RDW 13.6 % (11.5-15.5); WBC (Perox) 0.54
[2016-08-13 07:57] LABS: WBC 0.5 k/uL (3.8-10.6)
[2016-08-13 08:30] LABS: Add Differential Manual Differential; Manual Review Performed
[2016-08-13] MEDS ORDERED: UBIDECARENONE PO SCH (09:00)
[2016-08-13] MEDS ORDERED: SALT AND SODA MOUTHWASH 1,000 ML PO PRN (09:39)
[2016-08-13] MEDS: CEFEPIME 2 GM in SODIUM CHLORIDE 0.9% 50 ML IVPB SCH ×3 (11:22→23:59)
[2016-08-13 11:29] LABS: Glucose,Whole Blood 59 mg/dL (75-99)
[2016-08-13 12:11] LABS: Glucose,Whole Blood 68 mg/dL (75-99)
[2016-08-13 12:11] LABS: Glucose,Whole Blood 63 mg/dL (75-99)
[2016-08-13 12:27] LABS: Glucose,Whole Blood 90 mg/dL (75-99)
[2016-08-13] MEDS: ACYCLOVIR SODIUM 500 MG in SODIUM CHLORIDE 0.9% 100 ML IVPB SCH ×2 (12:59→23:02)
[2016-08-13 13:37] VITALS: BMI 25.0
--- NOTE | 2016-08-13 15:45 | P.HPIM ---
History of Present Illness H&P Date: 08/13/16 Chief Complaint: Abnormal labs This is an 85-year-old female. Her primary care physician is Dr. Pride. She has a past medical history of diabetes mellitus type 2 insulin- requiring, hypertension, hyperlipidemia, hypothyroidism, breast cancer, colon cancer status post bowel resection, acute myelogenous leukemia, pancytopenia, vitamin D deficiency. Patient had a recent hospitalization at [facility] at which time she was admitted from July 02 through 2016. She was treated for anemia and was transfused with 3 units of packed RBCs. Her troponins were elevated 0.33 and this was thought to be due to the anemia. Her EF was 55-60%. She was then hospitalized at [facility] from August 01 through August 07 at which time she was treated for neutropenic fever. She did receive transfusion of platelets and packed RBCs. She was seen in consultation by oncology as well as Dr. Bowling from infectious disease. She was treated with IV 7 time and at the time of discharge she went home on ciprofloxacin for 14 day course. She has been seen by Dr. 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 CAT scan revealed inflammatory changes in the bowel and lung nodules. PET scan in June 2015 did not reveal any evidence of metastatic disease. 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 Due to severe anemia in April 2016 she underwent a bone marrow biopsy which was consistent with acute myelogenous leukemia. Patient decided to start Dacogen which was done on 07/13/2016 and completed 1 cycle on 07/17/2016. Patient presented to [facility] emergency center patient lives with her sister and sister was concerned that she was pale and that her blood counts were low again. White count 0.7, hemoglobin 6.2 and platelet count 13. Emergency center contacted Dr. Cortez requesting admission for transfusion. Her vital signs were stable. Temperature max 101.2. Urinalysis was nitrate and leukoesterase negative. Chest x-ray showed cardiomegaly with suspected improvement in aeration. Repeat lab work shows a WBC of 0.5, hemoglobin 8.5, platelet count 8. Patient has been seen by Dr. Cortez and platelet transfusion has been ordered which will arrive late this evening. Blood culture is showing no growth at 24 hours. Patient states that she is feeling normal and at her baseline. Patient is noted to have a large lesion on her mid lower lip for which consult added for Dr. Bowling. She denies having any vomiting. She denies having any dark stools. Review of Systems All systems: negative Constitutional: Reports fatigue, Denies chills, Denies fever Eyes: denies blurred vision, denies pain Ears, nose, mouth and throat: Denies headache, Denies sore throat Cardiovascular: Denies chest pain, Denies shortness of breath Respiratory: Denies cough Gastrointestinal: Denies abdominal pain, Denies diarrhea, Denies nausea, Denies vomiting Genitourinary: Denies dysuria, Denies hematuria Musculoskeletal: Denies myalgias Integumentary: Denies pruritus, Denies rash Neurological: Denies numbness, Denies weakness Psychiatric: Denies anxiety, Denies depression Endocrine: Denies fatigue, Denies weight change Past Medical History Past Medical History: Cancer, Diabetes Mellitus, Hyperlipidemia, Hypertension, Thyroid Disorder Additional Past Medical History / Comment(s): Breast cancer status post lumpectomy and sentinel node biopsy 2013, 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 stated has has loose stools ever since sx sometimes 3-4 times a day", acute myelogenous leukemia, pancytopenia, hypothyroidism, diabetes mellitus type 2 insulin requiring, amenia (has received platelets and blood), lt eye "floaters" History of Any Multi-Drug Resistant Organisms: None Reported Past Surgical History: Appendectomy, Bowel Resection Additional Past Surgical History / Comment(s): Right breast lumpectomy, Hemicolectomy "12 inches removed, bone marrow biopsy and aspiration, ectopic surgery Past Anesthesia/Blood Transfusion Reactions: No Reported Reaction Past Psychological History: No Psychological Hx Reported Additional Psychological History / Comment(s): . Retired. No experience. No travels. No tobacco history no significant history of alcohol use Smoking Status: Former smoker Past Alcohol Use History: None Reported Additional Past Alcohol Use History / Comment(s): Patient smoked a half a pack a day for 50 years and quit in 2007. She denies any alcohol or illegal drug use. She is and lives with her sister. She is quite active she does not have oxygen, nebulizer, CPAP. She does not need cane or walker. Past Drug Use History: None Reported - Past Family History Father Additional Family Medical History / Comment(s): Father at age 78 from lung cancer. Mother Additional Family Medical History / Comment(s): Mother at age 78 from brain hemorrhage. Brother(s) Additional Family Medical History / Comment(s): Patient has 6 siblings with medical problems including diabetes, hypertension, breast cancer. Daughter(s) Additional Family Medical History / Comment(s): She has one daughter that from breast cancer. Medications and Allergies Home Medications Medication Instructions Recorded Confirmed Type Acetaminophen [Tylenol 8 Hour] 650 mg PO QID PRN 06/03/16 08/12/16 History Anastrozole [Arimidex] 1 mg PO DAILY 06/03/16 08/12/16 History Calcium Carbonate [Calcium] 600 mg PO DAILY 06/03/16 08/12/16 History Cholecalciferol [Vitamin D3] 1,000 unit PO DAILY 06/03/16 08/12/16 History Diphenoxylate HCl/Atropine 1 - 2 tab PO QID PRN 06/03/16 08/12/16 History [Lomotil] Levothyroxine Sodium [Synthroid] 112 mcg PO DAILY 06/03/16 08/12/16 History Simvastatin [Zocor] 20 mg PO HS 06/03/16 08/12/16 History Ubidecarenone [Co Q-10] 1 cap PO DAILY 06/03/16 08/12/16 History amLODIPine BESYLATE [Norvasc] 5 mg PO BID 06/03/16 08/12/16 History Insulin NPH Hum/Reg Insulin Hm 20 unit SQ AC-BID 08/01/16 08/12/16 History [NovoLIN 70-30 100 UNIT/ML VIAL] Psyllium Husk 100% [Metamucil 6 gm PO DAILY PRN 08/01/16 08/12/16 History Packet] Allergies Allergy/AdvReac Type Severity Reaction Status Date / Time No Known Allergies Allergy Verified 08/12/16 10:58 Physical Exam Vitals: Vital Signs Temp Pulse Pulse Resp BP BP Pulse Ox 08/13/16 08:37 99.1 F 74 18 145/67 97 08/13/16 01:42 99.0 F 08/13/16 01:41 99.0 F 65 16 143/64 94 L 08/12/16 23:20 98.9 F 72 16 131/61 98 08/12/16 22:50 98.8 F 69 16 138/60 92 L 08/12/16 22:40 98.8 F 71 18 139/62 95 08/12/16 22:15 99.8 F H 74 16 122/58 97 08/12/16 22:10 99.0 F 72 18 120/59 95 08/12/16 18:17 101.2 F H 95 18 155/67 08/12/16 17:52 100.3 F H 96 18 158/68 08/12/16 17:42 100.9 F H 104 H 134/75 08/12/16 17:17 99.0 F 111 H 18 128/67 08/12/16 16:00 98.4 F 80 16 135/65 100 08/12/16 15:31 75 20 116/51 95 08/12/16 15:30 99.2 F 75 20 116/51 08/12/16 15:20 72 20 124/57 08/12/16 15:15 99.2 F 72 20 124/57 98 08/12/16 14:32 98.5 F 75 18 124/54 98 Intake and Output 08/12/16 08/13/16 08/13/16 22:59 06:59 14:59 Intake Total 660 610 Balance 660 610 Intake: IV 150 300 Sodium Chloride 0.9% 1, 150 300 000 ml @ 75 mls/hr IV . [id number] STA Rx#:[id number] Blood Product 510 310 Platelet Irr Pheresis 3 200 Acda Unit [id number] Rc As-1 Unit 310 [id number] Rc As-1 Unit 0 310 [id number] Other: Voiding Method Toilet Gen: This is an 85-year-old female. She is found sitting up and appears to be in no acute distress. HEENT: Head is atraumatic, normocephalic. Pupils equal, round. Sclerae is anicteric. Conjunctiva pale. Large lesion noted to the mid lower lip with central area appearing to have scant amount of bleeding. Patient also has several lesions on buccal membranes and tongue. NECK: Supple. No JVD. No lymphadenopathy. No thyromegaly. LUNGS: Clear to auscultation. No wheezes or rhonchi. No intercostal retractions. HEART: Regular rate and rhythm. No murmur. ABDOMEN: Soft. Bowel sounds are present. No masses. No tenderness. EXTREMITIES: No pedal edema. No calf tenderness. Dorsalis pedis +2 bilaterally. NEUROLOGICAL: Patient is awake, alert and oriented x3. Cranial nerves 2 through 12 are grossly intact. Results CBC & Chem 7: 08/13/16 07:34 08/12/16 11:24 Labs: Abnormal Lab Results - Last 24 Hours (Table) 08/12/16 08/13/16 08/13/16 Range/Units 20:53 02:59 07:14 WBC (3.8-10.6) k/uL RBC (3.80-5.40) m/uL Hgb (11.4-16.0) gm/dL Hct (34.0-46.0) % Plt Count (150-450) k/uL POC Glucose (mg/dL) 125 H 129 H 122 H (75-99) mg/dL 08/13/16 08/13/16 Range/Units 07:34 11:17 WBC 0.5 L* (3.8-10.6) k/uL RBC 2.88 L (3.80-5.40) m/uL Hgb 8.5 L D (11.4-16.0) gm/dL Hct 25.2 L (34.0-46.0) % Plt Count 8 L* (150-450) k/uL POC Glucose (mg/dL) 59 L (75-99) mg/dL Thrombosis Risk Factor Assmnt - DVT/VTE Prophylaxis DVT/VTE Prophylaxis: Mechanical Prophylaxis ordered - Choose All That Apply Any of the Below Risk Factors Present?: Yes Other Risk Factors: Yes Each Risk Factor Represents 2 Points: Malignancy Each Risk Factor Represents 3 Points: Age 75 years or older Thrombosis Risk Factor Assessment Total Risk Factor Score: 5 Thrombosis Risk Factor Assessment Level: High Risk Assessment and Plan Plan: 1. 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 Consult with Dr. Cortez appreciated. Patient is scheduled for platelet transfusion. 2. Acute myelogenous leukemia. Consult with Dr. Cortez appreciated. 3. Neutropenic fever with temperature max 101.2. Dr. Bowling is on consult. Continue cephapirin 4. History of breast cancer, adenocarcinoma of the colon, neuroendocrine carcinoma of the small bowel. 5. 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 Acyclovir ordered by Dr. Bowling. Salt and soda mouthwash every 1 hour as needed. 6. Diabetes mellitus type 2, insulin requiring. Patient is on Novolin 70/30 20 units twice daily at home. She was hypoglycemic and dose decreased by 25% Patient currently on Humalog scale. 7. Hypertension. Continue Norvasc 5 mg twice daily. 8. Hyperlipidemia. Continue Zocor 20 mg at bedtime. 9. Hypothyroidism. Continue levothyroxine 112 g daily. 10. Vitamin D deficiency. Continue calcium and vitamin D supplement. 11. Gastrointestinal prophylaxis. Continue Protonix 40 mg IV daily. 12. DVT prophylaxis. Heparin as not started due to thrombocytopenia. ALAINA zuniga and SCDs. Patient will be admitted to the hospital for a minimum of 2 night stay. Discharge plan: Return home Impression and plan of care have been directed as dictated by the signing physician. Frida Coughlin nurse practitioner acting as scribe for signing physician. Time with Patient: Greater than 30
--- NOTE | 2016-08-13 15:52 | P.CONS ---
History of Present Illness - Reason for Consult Consult date: 08/13/16 Neutropenic sepsis, lesion on lip - History of Present Illness This is an 85-year-old female. Patient is well-known to ID service due to her recent hospitalization at [facility] from August 01 through August 07 at which time she was treated for neutropenic fever. She did receive transfusion of platelets and packed RBCs. She was followed by oncology as well as Dr. Bowling from infectious disease. She was treated with IV Cefepime and at the time of discharge she went home on ciprofloxacin for 14 day course. She has been seen by Dr. 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 CAT scan revealed inflammatory changes in the bowel and lung nodules. PET scan in June 2015 did not reveal any evidence of metastatic disease. 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 Due to severe anemia in April 2016 she underwent a bone marrow biopsy which was consistent with acute myelogenous leukemia. Patient decided to start Dacogen which was done on 07/13/2016 and completed 1 cycle on 07/17/2016. Patient presented to [facility] emergency center patient lives with her sister and sister was concerned that she was pale and that her blood counts were low again. White count 0.7, hemoglobin 6.2 and platelet count 13. Emergency center contacted Dr. Cortez requesting admission for transfusion. Her vital signs were stable. Temperature max 101.2. Urinalysis was nitrate and leukoesterase negative. Chest x-ray showed cardiomegaly with suspected improvement in aeration. Repeat lab work shows a WBC of 0.5, hemoglobin 8.5, platelet count 8. Patient has been seen by Dr. Cortez and platelet transfusion has been ordered which will arrive late this evening. Blood culture is showing no growth at 24 hours. Patient states that she is feeling normal and at her baseline. Patient is noted to have a large lesion on her mid lower lip which she does not recall when that started. She also complains of lesions on her mucous membranes of her mouth and tongue. She denies having any vomiting. She denies having any dark stools. Review of Systems All systems: negative Constitutional: Reports fatigue, Denies chills, Denies fever Eyes: denies blurred vision, denies pain Ears, nose, mouth and throat: Reports mouth pain, Denies headache, Denies sore throat Cardiovascular: Denies chest pain, Denies shortness of breath Respiratory: Denies cough Gastrointestinal: Denies abdominal pain, Denies coffee ground emesis, Denies diarrhea, Denies hematemesis, Denies hematochezia, Denies melena, Denies nausea , Denies vomiting Genitourinary: Denies dysuria, Denies hematuria Musculoskeletal: Denies myalgias Integumentary: Denies pruritus, Denies rash Neurological: Denies numbness, Denies weakness Psychiatric: Denies anxiety, Denies depression Endocrine: Denies fatigue, Denies weight change Past Medical History Past Medical History: Cancer, Diabetes Mellitus, Hyperlipidemia, Hypertension, Thyroid Disorder Additional Past Medical History / Comment(s): Breast cancer status post lumpectomy and sentinel node biopsy 2013, 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 stated has has loose stools ever since sx sometimes 3-4 times a day", acute myelogenous leukemia, pancytopenia, hypothyroidism, diabetes mellitus type 2 insulin requiring, amenia (has received platelets and blood), lt eye "floaters" History of Any Multi-Drug Resistant Organisms: None Reported Past Surgical History: Appendectomy, Bowel Resection Additional Past Surgical History / Comment(s): Right breast lumpectomy, Hemicolectomy "12 inches removed, bone marrow biopsy and aspiration, ectopic surgery Past Anesthesia/Blood Transfusion Reactions: No Reported Reaction Past Psychological History: No Psychological Hx Reported Additional Psychological History / Comment(s): . Retired. No experience. No travels. No tobacco history no significant history of alcohol use Smoking Status: Former smoker Past Alcohol Use History: None Reported Additional Past Alcohol Use History / Comment(s): Patient smoked a half a pack a day for 50 years and quit in 2007. She denies any alcohol or illegal drug use. She is and lives with her sister. She is quite active she does not have oxygen, nebulizer, CPAP. She does not need cane or walker. Past Drug Use History: None Reported - Past Family History Father Additional Family Medical History / Comment(s): Father at age 78 from lung cancer. Mother Additional Family Medical History / Comment(s): Mother at age 78 from brain hemorrhage. Brother(s) Additional Family Medical History / Comment(s): Patient has 6 siblings with medical problems including diabetes, hypertension, breast cancer. Daughter(s) Additional Family Medical History / Comment(s): She has one daughter that from breast cancer. Medications and Allergies Home Medications Medication Instructions Recorded Confirmed Type Acetaminophen [Tylenol 8 Hour] 650 mg PO QID PRN 06/03/16 08/12/16 History Anastrozole [Arimidex] 1 mg PO DAILY 06/03/16 08/12/16 History Calcium Carbonate [Calcium] 600 mg PO DAILY 06/03/16 08/12/16 History Cholecalciferol [Vitamin D3] 1,000 unit PO DAILY 06/03/16 08/12/16 History Diphenoxylate HCl/Atropine 1 - 2 tab PO QID PRN 06/03/16 08/12/16 History [Lomotil] Levothyroxine Sodium [Synthroid] 112 mcg PO DAILY 06/03/16 08/12/16 History Simvastatin [Zocor] 20 mg PO HS 06/03/16 08/12/16 History Ubidecarenone [Co Q-10] 1 cap PO DAILY 06/03/16 08/12/16 History amLODIPine BESYLATE [Norvasc] 5 mg PO BID 06/03/16 08/12/16 History Insulin NPH Hum/Reg Insulin Hm 20 unit SQ AC-BID 08/01/16 08/12/16 History [NovoLIN 70-30 100 UNIT/ML VIAL] Psyllium Husk 100% [Metamucil 6 gm PO DAILY PRN 08/01/16 08/12/16 History Packet] Allergies Allergy/AdvReac Type Severity Reaction Status Date / Time No Known Allergies Allergy Verified 08/12/16 10:58 Physical Exam Vitals: Vital Signs Temp Pulse Pulse Resp BP BP Pulse Ox 08/13/16 08:37 99.1 F 74 18 145/67 97 08/13/16 01:42 99.0 F 08/13/16 01:41 99.0 F 65 16 143/64 94 L 08/12/16 23:20 98.9 F 72 16 131/61 98 08/12/16 22:50 98.8 F 69 16 138/60 92 L 08/12/16 22:40 98.8 F 71 18 139/62 95 08/12/16 22:15 99.8 F H 74 16 122/58 97 08/12/16 22:10 99.0 F 72 18 120/59 95 08/12/16 18:17 101.2 F H 95 18 155/67 08/12/16 17:52 100.3 F H 96 18 158/68 08/12/16 17:42 100.9 F H 104 H 134/75 08/12/16 17:17 99.0 F 111 H 18 128/67 08/12/16 16:00 98.4 F 80 16 135/65 100 08/12/16 15:31 75 20 116/51 95 08/12/16 15:30 99.2 F 75 20 116/51 08/12/16 15:20 72 20 124/57 08/12/16 15:15 99.2 F 72 20 124/57 98 08/12/16 14:32 98.5 F 75 18 124/54 98 Intake and Output 08/12/16 08/13/16 08/13/16 22:59 06:59 14:59 Intake Total 660 610 Balance 660 610 Intake: IV 150 300 Sodium Chloride 0.9% 1, 150 300 000 ml @ 75 mls/hr IV . [id number] STA Rx#:[id number] Blood Product 510 310 Platelet Irr Pheresis 3 200 Acda Unit [id number] As-1 Unit 310 [id number] As-1 Unit 0 310 [id number] Other: Voiding Method Toilet Gen: This is an 85-year-old female. She is found sitting up and appears to be in no acute distress. HEENT: Head is atraumatic, normocephalic. Pupils equal, round. Sclerae is anicteric. Conjunctiva pale. Large lesion noted to the mid lower lip with central area appearing to have scant amount of bleeding. Patient also has several lesions on buccal membranes and tongue. NECK: Supple. No JVD. No lymphadenopathy. No thyromegaly. LUNGS: Clear to auscultation. No wheezes or rhonchi. No intercostal retractions. HEART: Regular rate and rhythm. No murmur. ABDOMEN: Soft. Bowel sounds are present. No masses. No tenderness. EXTREMITIES: No pedal edema. No calf tenderness. Dorsalis pedis +2 bilaterally. NEUROLOGICAL: Patient is awake, alert and oriented x3. Cranial nerves 2 through 12 are grossly intact. Results Results: Laboratory Results WBC 0.5 k/uL (3.8-10.6) L* 08/13/16 07:34 RBC 2.88 m/uL (3.80-5.40) L 08/13/16 07:34 Hgb 8.5 gm/dL (11.4-16.0) L D 08/13/16 07:34 Hct 25.2 % (34.0-46.0) L 08/13/16 07:34 MCV 87.6 fL (80.0-100.0) 08/13/16 07:34 MCH 29.7 pg (25.0-35.0) 08/13/16 07:34 MCHC 33.9 g/dL (31.0-37.0) 08/13/16 07:34 RDW 13.6 % (11.5-15.5) 08/13/16 07:34 Plt Count 8 k/uL (150-450) L* 08/13/16 07:34 Differential Comment 08/13/16 07:34 Manual Slide Review Performed 08/13/16 07:34 Poikilocytosis (manual Present 08/13/16 07:34 Anisocytosis (manual) Present 08/12/16 11:24 Tear Drop Cells Present 08/12/16 11:24 Rouleaux Present 08/12/16 11:24 Sodium 144 mmol/L (137-145) 08/12/16 11:24 Potassium 4.5 mmol/L (3.5-5.1) 08/12/16 11:24 Chloride 105 mmol/L (98-107) 08/12/16 11:24 Carbon Dioxide 28 mmol/L (22-30) 08/12/16 11:24 Anion Gap 11 mmol/L 08/12/16 11:24 BUN 13 mg/dL (7-17) 08/12/16 11:24 Creatinine 0.76 mg/dL (0.52-1.04) 08/12/16 11:24 Est GFR (MDRD) Af Amer >60 (>60 ml/min/1.73 sqM) 08/12/16 11:24 Est GFR (MDRD) Non-Af >60 (>60 ml/min/1.73 sqM) 08/12/16 11:24 Glucose 97 mg/dL (74-99) 08/12/16 11:24 POC Glucose (mg/dL) 90 mg/dL (75-99) 08/13/16 12:21 POC Glu Pediatric Physician Assistant Sheila Asif 08/13/16 12:21 Calcium 9.4 mg/dL (8.4-10.2) 08/12/16 11:24 Magnesium 2.0 mg/dL (1.6-2.3) 08/12/16 11:24 Total Bilirubin 0.5 mg/dL (0.2-1.3) 08/12/16 11:24 AST 13 U/L (14-36) L 08/12/16 11:24 ALT 18 U/L (9-52) 08/12/16 11:24 Alkaline Phosphatase 62 U/L (38-126) 08/12/16 11:24 Total Creatine Kinase <20 U/L (30-135) L 08/12/16 11:24 CK-MB (CK-2) 0.3 ng/mL (0.0-2.4) 08/12/16 11:24 CK-MB (CK-2) Rel Index 0.0 08/12/16 11:24 Troponin I <0.012 ng/mL (0.000-0.034) 08/12/16 11:24 Total Protein 7.5 g/dL (6.3-8.2) 08/12/16 11:24 Albumin 3.3 g/dL (3.5-5.0) L 08/12/16 11:24 Urine Color Yellow 08/12/16 13:18 Urine Appearance Clear (Clear) 08/12/16 13:18 Urine pH 5.5 (5.0-8.0) 08/12/16 13:18 Ur Specific Finley 1.019 (1.001-1.035) 08/12/16 13:18 Urine Protein 1+ (Negative) H 08/12/16 13:18 Urine Glucose (UA) Negative (Negative) 08/12/16 13:18 Urine Ketones Negative (Negative) 08/12/16 13:18 Urine Blood Negative (Negative) 08/12/16 13:18 Urine Nitrate Negative (Negative) 08/12/16 13:18 Urine Bilirubin Negative (Negative) 08/12/16 13:18 Urine Urobilinogen <2.0 mg/dL (<2.0) 08/12/16 13:18 Ur Leukocyte Esterase Negative (Negative) 08/12/16 13:18 Urine RBC <1 /hpf (0-5) 08/12/16 13:18 Urine WBC 2 /hpf (0-5) 08/12/16 13:18 Ur Squamous Epith Cells 1 /hpf (0-4) 08/12/16 13:18 Urine Bacteria Rare /hpf (None) H 08/12/16 13:18 Urine Mucus Rare /hpf (None) H 08/12/16 13:18 Blood Type O Positive 08/12/16 11:24 Blood Type Recheck No 08/12/16 11:24 Antibody Screen POSITIVE 08/12/16 11:24 Antibody Identification Anti-E 08/12/16 11:24 Direct Antiglob Test Positive 08/12/16 11:24 Crossmatch See Detail 08/12/16 11:24 Transfuse Platelets 08/12/2016 08/12/16 11:24 Spec Expiration Date 08/15/2016232308/12/16 11:24 CBC & Chem 7: 08/13/16 07:34 08/12/16 11:24 Labs: Abnormal Lab Results - Last 24 Hours (Table) 08/12/16 08/13/16 08/13/16 Range/Units 20:53 02:59 07:14 WBC (3.8-10.6) k/uL RBC (3.80-5.40) m/uL Hgb (11.4-16.0) gm/dL Hct (34.0-46.0) % Plt Count (150-450) k/uL POC Glucose (mg/dL) 125 H 129 H 122 H (75-99) mg/dL 08/13/16 08/13/16 Range/Units 07:34 11:17 WBC 0.5 L* (3.8-10.6) k/uL RBC 2.88 L (3.80-5.40) m/uL Hgb 8.5 L D (11.4-16.0) gm/dL Hct 25.2 L (34.0-46.0) % Plt Count 8 L* (150-450) k/uL POC Glucose (mg/dL) 59 L (75-99) mg/dL Assessment and Plan Plan: This is an 85-year-old female who presents to the hospital with neutropenic fever and pancytopenia with underlying history of acute myelogenous leukemia. Patient admitted to the oncology unit. She has been started on Cefepime. She is also noted to have a viral lesion to the lower lip as well as oral lesions. She has been started on acyclovir and salt and soda mouthwash. She is scheduled for platelet transfusion late this evening. Blood culture is currently showing no growth. Continue supportive care. Further recommendations as patient progresses. The above dictated assessment and findings were discussed with Dr. Bowling. The impression and plan of care have been directed as dictated. Frida Coughlin nurse practitioner acting as scribe for Dr. Bowling. Time with Patient: Greater than 30
[2016-08-13 17:27] LABS: Glucose,Whole Blood 130 mg/dL (75-99)
[2016-08-13] MEDS: INSULIN LISPRO (humaLOG) 300 UNIT/3 ML VIAL SQ SCH ×2 (17:38→20:30)
[2016-08-13 18:41] LABS: Hemoglobin A1C 5.9 % (4.2-6.1)
[2016-08-13] MEDS: ATORVASTATIN 10 MG TAB PO SCH (20:29)
[2016-08-13 20:50] LABS: Glucose,Whole Blood 88 mg/dL (75-99)
--- NOTE | 2016-08-13 21:16 | P.CONS ---
History of Present Illness - Reason for Consult Consult date: 08/13/16 Febrile neutropenia. 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 She was admitted to the hospital in with lower GI bleeding,had EGD /colonoscopy on 06/12/2015,was found lesions at distal small bowels,biopsy revealed well differentiated endocrine tumor. CT scan of abdomne/pelvis done on 06/09/2015 revealed inflammatory changes in bowel,intermediate lung nodule. On 07/16/2015,PET scan did not reveal convincing evidence of metastatic disease. 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 The patient was found to be severly anemic in ,when CBC revealed hemoglobin of 7.9gm/dl,platelets counts of 109K,total wbc of 6.3,however,there was evidence of circulating blasts,her iron studies were unremarkable. 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 She opted for active treatment, and is s/p 1 cycle of Dacogen completed > 3 wks ago. She was admitted last week for pancytopenia requiring transfusions. She was brought in again due to marked weakness. She was again noted to have severe pancytopenia. She received PRBC and plt transfusion, but developed a fever of 101.2, As she was neutropenic, she was admitted and consult placed. She was started on PO cipro. Her CXR and UA were negative Review of Systems Constitutional: Reports fever, Reports poor appetite, Reports weakness Eyes: denies blurred vision, denies pain Ears: deny: decreased hearing, ear discharge, earache, tinnitus Ears, nose, mouth and throat: Reports as per HPI (hyperpigmented , blister type lesion on lower lip) Breasts: Reports as per HPI Cardiovascular: Reports palpitations, Reports shortness of breath Respiratory: Reports dyspnea Gastrointestinal: Denies abdominal pain, Denies diarrhea, Denies nausea, Denies vomiting Genitourinary: Denies dysuria, Denies hematuria Menstruation: Reports postmenopausal Musculoskeletal: Reports muscle weakness Integumentary: Denies pruritus, Denies rash Neurological: Reports weakness Psychiatric: Denies anxiety, Denies depression Endocrine: Reports fatigue Hematologic/Lymphatic: Reports as per HPI Past Medical History Past Medical History: Cancer, Diabetes Mellitus, Hyperlipidemia, Hypertension, Thyroid Disorder Additional Past Medical History / Comment(s): Breast cancer status post lumpectomy and sentinel node biopsy 2013, 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 stated has has loose stools ever since sx sometimes 3-4 times a day", acute myelogenous leukemia, pancytopenia, hypothyroidism, diabetes mellitus type 2 insulin requiring, amenia (has received platelets and blood), lt eye "floaters" History of Any Multi-Drug Resistant Organisms: None Reported Past Surgical History: Appendectomy, Bowel Resection Additional Past Surgical History / Comment(s): Right breast lumpectomy, Hemicolectomy "12 inches removed, bone marrow biopsy and aspiration, ectopic surgery Past Anesthesia/Blood Transfusion Reactions: No Reported Reaction Past Psychological History: No Psychological Hx Reported Additional Psychological History / Comment(s): . Retired. No experience. No travels. No tobacco history no significant history of alcohol use Smoking Status: Former smoker Past Alcohol Use History: None Reported Additional Past Alcohol Use History / Comment(s): Patient smoked a half a pack a day for 50 years and quit in 2007. She denies any alcohol or illegal drug use. She is and lives with her sister. She is quite active she does not have oxygen, nebulizer, CPAP. She does not need cane or walker. Past Drug Use History: None Reported - Past Family History Father Additional Family Medical History / Comment(s): Father at age 78 from lung cancer. Mother Additional Family Medical History / Comment(s): Mother at age 78 from brain hemorrhage. Brother(s) Additional Family Medical History / Comment(s): Patient has 6 siblings with medical problems including diabetes, hypertension, breast cancer. Daughter(s) Additional Family Medical History / Comment(s): She has one daughter that from breast cancer. Medications and Allergies Home Medications Medication Instructions Recorded Confirmed Type Acetaminophen [Tylenol 8 Hour] 650 mg PO QID PRN 06/03/16 08/12/16 History Anastrozole [Arimidex] 1 mg PO DAILY 06/03/16 08/12/16 History Calcium Carbonate [Calcium] 600 mg PO DAILY 06/03/16 08/12/16 History Cholecalciferol [Vitamin D3] 1,000 unit PO DAILY 06/03/16 08/12/16 History Diphenoxylate HCl/Atropine 1 - 2 tab PO QID PRN 06/03/16 08/12/16 History [Lomotil] Levothyroxine Sodium [Synthroid] 112 mcg PO DAILY 06/03/16 08/12/16 History Simvastatin [Zocor] 20 mg PO HS 06/03/16 08/12/16 History Ubidecarenone [Co Q-10] 1 cap PO DAILY 06/03/16 08/12/16 History amLODIPine BESYLATE [Norvasc] 5 mg PO BID 06/03/16 08/12/16 History Insulin NPH Hum/Reg Insulin Hm 20 unit SQ AC-BID 08/01/16 08/12/16 History [NovoLIN 70-30 100 UNIT/ML VIAL] Psyllium Husk 100% [Metamucil 6 gm PO DAILY PRN 08/01/16 08/12/16 History Packet] Allergies Allergy/AdvReac Type Severity Reaction Status Date / Time No Known Allergies Allergy Verified 08/12/16 10:58 Physical Exam Vitals: Vital Signs Temp Pulse Pulse Resp BP BP Pulse Ox 08/13/16 16:00 79 18 08/13/16 15:18 98.3 F 79 18 147/67 98 08/13/16 08:37 99.1 F 74 18 145/67 97 08/13/16 01:42 99.0 F 08/13/16 01:41 99.0 F 65 16 143/64 94 L 08/12/16 23:20 98.9 F 72 16 131/61 98 08/12/16 22:50 98.8 F 69 16 138/60 92 L 08/12/16 22:40 98.8 F 71 18 139/62 95 08/12/16 22:15 99.8 F H 74 16 122/58 97 08/12/16 22:10 99.0 F 72 18 120/59 95 08/12/16 18:17 101.2 F H 95 18 155/67 08/12/16 17:52 100.3 F H 96 18 158/68 Intake and Output 08/13/16 08/13/16 08/13/16 06:59 14:59 22:59 Intake Total 610 50 Balance 610 50 Intake: IV 300 Sodium Chloride 0.9% 1, 300 000 ml @ 75 mls/hr IV . [id number] Rx#:[id number] Intake, IV Titration 50 Amount Cefepime 2 gm In Sodium 50 Chloride 0.9% 50 ml @ 100 mls/hr IVPB Q8HR [facility] Rx# :[id number] Blood Product 310 Rc As-1 Unit 310 [id number] Other: Voiding Method Toilet Toilet Toilet # Voids 3 3 Weight 68.039 kg 68.039 kg Patient Weight 08/14/16 06:59 Weight 68.039 kg - Constitutional General appearance: no acute distress - EENT Eyes: EOMI, PERRLA ENT: hearing grossly normal, normal oropharynx, other (irregular, dark blister type lesion on lower lip) - Neck Neck: no lymphadenopathy Thyroid: bilateral: normal size - Respiratory Respiratory: bilateral: CTA - Cardiovascular Rhythm: regular Heart sounds: normal: S1, S2 - Gastrointestinal General gastrointestinal: normal bowel sounds, soft - Integumentary Integumentary: normal - Neurologic Neurologic: CNII-XII intact - Musculoskeletal Musculoskeletal: generalized weakness, strength equal bilaterally - Psychiatric Psychiatric: A&O x's 3, appropriate affect Results CBC & Chem 7: 08/13/16 07:34 08/12/16 11:24 Labs: Abnormal Lab Results - Last 24 Hours (Table) 08/12/16 08/13/16 08/13/16 Range/Units 20:53 02:59 07:14 WBC (3.8-10.6) k/uL RBC (3.80-5.40) m/uL Hgb (11.4-16.0) gm/dL Hct (34.0-46.0) % Plt Count (150-450) k/uL POC Glucose (mg/dL) 125 H 129 H 122 H (75-99) mg/dL 08/13/16 08/13/16 08/13/16 Range/Units 07:34 11:17 11:42 WBC 0.5 L* (3.8-10.6) k/uL RBC 2.88 L (3.80-5.40) m/uL Hgb 8.5 L D (11.4-16.0) gm/dL Hct 25.2 L (34.0-46.0) % Plt Count 8 L* (150-450) k/uL POC Glucose (mg/dL) 59 L 63 L (75-99) mg/dL 08/13/16 08/13/16 Range/Units 12:00 17:20 WBC (3.8-10.6) k/uL RBC (3.80-5.40) m/uL Hgb (11.4-16.0) gm/dL Hct (34.0-46.0) % Plt Count (150-450) k/uL POC Glucose (mg/dL) 68 L 130 H (75-99) mg/dL Chest x-ray: report reviewed Assessment and Plan (1) Febrile neutropenia Narrative/Plan: The patient has severe neutropenia, due to her underlying AML and chemotherapy. She developed a fever of 101+, leading to this admission. She has no localizing signs for infection. I suspect that the fever could be due to the transfusion. However, given her risk factors I would recommend treating her aggressively for now, while cultures are pending. As noted, UA and chest x- ray were negative. Blood cultures were drawn and are negative so far. In the meantime I will stop Cipro and switch her to cefepime. The patient has been afebrile since that initial episode. She remains afebrile and cultures are negative by tomorrow morning, she can potentially be discharged on oral antibiotics. At this time, as her AML is not in remission, growth factors would not be recommended unless it was absolutely necessary, such as in severe sepsis Status: Acute (2) Pancytopenia Narrative/Plan: Hemoglobin is improved into a safe range with transfusion. Platelets are still less than 10. Therefore another unit of transfusion will be ordered. Status: Acute (3) AML (acute myeloblastic leukemia) Narrative/Plan: The patient is currently on Dacogen, as she is not a candidate for the more aggressive standard induction regimens. At this time, it is not clear if her pancytopenia is due to her AML oral the effects of the chemotherapy. It is too early to say the chemotherapy is effective or not. It was discussed with the patient, that typically, we may in patients who are not responding initially, have to continue the treatment for 3-4 cycles, before the regimen can be judged in effective. During that time typically, aggressive supportive treatment including transfusions, are recommended. The same was discussed in detail with the patient. Chemotherapy will be resumed as an outpatient Status: Acute Plan: The lesion in the lower lip is new. The exam is concerning for a viral infection. I will consult Dr. Bowling.
--- NOTE | 2016-08-13 22:25 | P.CON ---
Consult Note - . Consult date: 08/13/16 Assessment/Plan:: This is an 85-year-old female. Patient is well-known to ID service due to her recent hospitalization at [facility] from August 01 through August 07 at which time she was treated for neutropenic fever. She did receive transfusion of platelets and packed RBCs. She was followed by oncology as well as Dr. Bowling from infectious disease. She was treated with IV Cefepime and at the time of discharge she went home on ciprofloxacin for 14 day course. She has been seen by Dr. 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 CAT scan revealed inflammatory changes in the bowel and lung nodules. PET scan in June 2015 did not reveal any evidence of metastatic disease. 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 Due to severe anemia in April 2016 she underwent a bone marrow biopsy which was consistent with acute myelogenous leukemia. Patient decided to start Dacogen which was done on 07/13/2016 and completed 1 cycle on 07/17/2016. Patient presented to [facility] emergency center patient lives with her sister and sister was concerned that she was pale and that her blood counts were low again. White count 0.7, hemoglobin 6.2 and platelet count 13. Emergency center contacted Dr. Cortez requesting admission for transfusion. Her vital signs were stable. Temperature max 101.2. Urinalysis was nitrate and leukoesterase negative. Chest x-ray showed cardiomegaly with suspected improvement in aeration. Repeat lab work shows a WBC of 0.5, hemoglobin 8.5, platelet count 8. Patient has been seen by Dr. Cortez and platelet transfusion has been ordered which will arrive late this evening. Blood culture is showing no growth at 24 hours. Patient states that she is feeling normal and at her baseline. Patient is noted to have a large lesion on her mid lower lip which she does not recall when that started. She also complains of lesions on her mucous membranes of her mouth and tongue. She denies having any vomiting. She denies having any dark stools. Please see consult as dictated by nurse practitioner Mrs. Frida Coughlin. With this time the patient relates she's feeling somewhat poorly. She's had some low-grade fever without chills. Has evidence of the extensive herpetic lesion on the lower lip. Intravenous acyclovir was added. Because she is having some fever antibiotic therapy with cefepime is also utilizes for her febrile neutropenia. As noted older receiving transfusions as indicated per oncology. I agree with evaluation, assessment and plan as dictated by nurse practitioner Mrs. Frida Coughlin.
[2016-08-14 02:04] LABS: Glucose,Whole Blood 101 mg/dL (75-99)
[2016-08-14] MEDS: LEVOTHYROXINE 112 MCG TAB PO SCH (06:28)
[2016-08-14 07:13] LABS: Glucose,Whole Blood 115 mg/dL (75-99)
[2016-08-14] MEDS: INSULIN LISPRO (humaLOG) 300 UNIT/3 ML VIAL SQ SCH ×4 (07:39→21:12)
[2016-08-14 08:39] LABS: CHCM 33.4; HCT 26.5 % (34.0-46.0); HDW 3.11; HGB 8.9 gm/dL (11.4-16.0); MCH 30.4 pg (25.0-35.0); MCHC 33.7 g/dL (31.0-37.0); MCV 90.2 fL (80.0-100.0); Mean Platelet Volume 8.2; RBC 2.94 m/uL (3.80-5.40); RDW 13.6 % (11.5-15.5)
[2016-08-14] MEDS: INSULIN NPH/REG INSULIN 70/30 300 UNIT/3 ML VIAL SQ SCH ×2 (08:39→18:08)
[2016-08-14] MEDS: amLODIPine 5 MG TAB PO SCH ×2 (08:42→21:10)
[2016-08-14] MEDS: PANTOPRAZOLE 40 MG TABLET PO SCH (08:43)
[2016-08-14] MEDS: CALCIUM CARBONATE 500 MG CHEWABLE PO SCH (08:43)
[2016-08-14] MEDS: CEFEPIME 2 GM in SODIUM CHLORIDE 0.9% 50 ML IVPB SCH ×2 (08:43→21:10)
[2016-08-14] MEDS: ANASTROZOLE 1 MG TAB PO SCH (08:43)
[2016-08-14] MEDS: CHOLECALCIFEROL 1,000 UNIT TAB PO SCH (08:44)
[2016-08-14 08:58] LABS: ALT 23 U/L (9-52); AST 16 U/L (14-36); Alkaline Phosphatase 66 U/L (38-126); Anion Gap 12 mmol/L; Blood Urea Nitrogen 11 mg/dL (7-17); Calcium 9.6 mg/dL (8.4-10.2); Carbon Dioxide 26 mmol/L (22-30); Chloride 105 mmol/L (98-107); Glucose 133 mg/dL (74-99); Non-African American GFR(MDRD) >60 (>60 ml/min/1.73 sqM); Sodium 143 mmol/L (137-145); Total Bilirubin 0.7 mg/dL (0.2-1.3); Total Protein 8.3 g/dL (6.3-8.2)
[2016-08-14] MEDS ORDERED: LIDOCAINE VISCOUS 2% 15 ML CUP MUCOUS MEM SCH (09:00)
[2016-08-14 09:10] LABS: WBC 0.5 k/uL (3.8-10.6)
[2016-08-14] MEDS: ACYCLOVIR SODIUM 500 MG in SODIUM CHLORIDE 0.9% 100 ML IVPB SCH ×3 (09:47→23:58)
[2016-08-14] MEDS: LIDOCAINE VISCOUS 300 MG/15 ML CUP MUCOUS MEM SCH ×4 (10:27→21:11)
[2016-08-14 11:17] LABS: Glucose,Whole Blood 121 mg/dL (75-99)
--- NOTE | 2016-08-14 13:56 | P.PN ---
Subjective This is an 85-year-old female. Her primary care physician is Dr. Pride. She has a past medical history of diabetes mellitus type 2 insulin- requiring, hypertension, hyperlipidemia, hypothyroidism, breast cancer, colon cancer status post bowel resection, acute myelogenous leukemia, pancytopenia, vitamin D deficiency. Patient had a recent hospitalization at [facility] at which time she was admitted from July 02 through 2016. She was treated for anemia and was transfused with 3 units of packed RBCs. Her troponins were elevated 0.33 and this was thought to be due to the anemia. Her EF was 55-60%. She was then hospitalized at [facility] from August 01 through August 07 at which time she was treated for neutropenic fever. She did receive transfusion of platelets and packed RBCs. She was seen in consultation by oncology as well as Dr. Bowling from infectious disease. She was treated with IV 7 time and at the time of discharge she went home on ciprofloxacin for 14 day course. She has been seen by Dr. 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 CAT scan revealed inflammatory changes in the bowel and lung nodules. PET scan in June 2015 did not reveal any evidence of metastatic disease. 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 Due to severe anemia in April 2016 she underwent a bone marrow biopsy which was consistent with acute myelogenous leukemia. Patient decided to start Dacogen which was done on 07/13/2016 and completed 1 cycle on 07/17/2016. Patient presented to [facility] emergency center patient lives with her sister and sister was concerned that she was pale and that her blood counts were low again. White count 0.7, hemoglobin 6.2 and platelet count 13. Emergency center contacted Dr. Cortez requesting admission for transfusion. Her vital signs were stable. Temperature max 101.2. Urinalysis was nitrate and leukoesterase negative. Chest x-ray showed cardiomegaly with suspected improvement in aeration. Repeat lab work shows a WBC of 0.5, hemoglobin 8.5, platelet count 8. Patient has been seen by Dr. Cortez and platelet transfusion has been ordered which will arrive late this evening. Blood culture is showing no growth at 24 hours. Patient states that she is feeling normal and at her baseline. Patient is noted to have a large lesion on her mid lower lip for which consult added for Dr. Bowling. She denies having any vomiting. She denies having any dark stools. 08/14: patient underwent transfusion of 2 units of packed RBCs and platelets yesterday. Repeat blood work revealsWBC 0.5, hemoglobin 8.9, platelet count 9. Platelet glucose running between 101 and 121. Patient is denying any complaints. She is eating adequately. She is complaining of discomfort to her lower lip where she has a viral lesion. She has been afebrile. Patient is anxious to be discharged home but is agreeable to stay. Patient noted to be Anti -E positive on blood bank. Objective - Vital Signs Vital signs: Vital Signs Temp 98.2 F 08/14/16 08:04 Pulse 82 08/14/16 08:04 Resp 18 08/14/16 08:04 BP 155/70 08/14/16 08:04 Pulse Ox 98 08/14/16 08:04 Intake & Output 08/13/16 08/14/16 08/14/16 18:59 06:59 18:59 Intake Total 50 1106 Balance 50 1106 Weight 68.039 kg Intake: Intake, IV Titration 50 150 Amount Acyclovir Sodium 500 mg 100 In Sodium Chloride 0.9% 100 ml @ 100 mls/hr IVPB Q8HR [facility] Rx#:[id number] Cefepime 2 gm In Sodium 50 50 Chloride 0.9% 50 ml @ 100 mls/hr IVPB Q8HR [facility] Rx# :[id number] Oral 120 Blood Product 836 Platelet Pheresis Acda 418 Unit [id number] Other: Voiding Method Toilet Toilet # Voids 3 2 - Exam Gen: This is an 85-year-old female. She is found sitting up and appears to be in no acute distress. HEENT: Head is atraumatic, normocephalic. Pupils equal, round. Sclerae is anicteric. Conjunctiva pale. Large lesion noted to the mid lower lip with central area appearing to have scant amount of bleeding. Patient also has several lesions on buccal membranes and tongue. NECK: Supple. No JVD. No lymphadenopathy. No thyromegaly. LUNGS: Clear to auscultation. No wheezes or rhonchi. No intercostal retractions. HEART: Regular rate and rhythm. No murmur. ABDOMEN: Soft. Bowel sounds are present. No masses. No tenderness. EXTREMITIES: No pedal edema. No calf tenderness. Dorsalis pedis +2 bilaterally. NEUROLOGICAL: Patient is awake, alert and oriented x3. Cranial nerves 2 through 12 are grossly intact. - Labs CBC & Chem 7: 08/14/16 07:52 08/14/16 07:52 Labs: Abnormal Lab Results - Last 24 Hours (Table) 08/13/16 08/13/16 08/13/16 Range/Units 11:17 11:42 12:00 POC Glucose (mg/dL) 59 L 63 L 68 L (75-99) mg/dL 08/13/16 08/14/16 08/14/16 Range/Units 17:20 02:01 07:11 POC Glucose (mg/dL) 130 H 101 H 115 H (75-99) mg/dL Assessment and Plan Plan: 1. 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 Consult with Dr. Cortez appreciated. Patient is status post platelet and packed RBC transfusions. 2. Acute myelogenous leukemia. Consult with Dr. Cortez appreciated. 3. Neutropenic fever with temperature max 101.2. Dr. Bowling is on consult. Continue Cefepime. 4. History of breast cancer, adenocarcinoma of the colon, neuroendocrine carcinoma of the small bowel. 5. 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 Acyclovir IV ordered by Dr. Bowling. Salt and soda mouthwash every 1 hour as needed. Viscous lidocaine ordered for comfort. 6. Diabetes mellitus type 2, insulin requiring. Patient is on Novolin 70/30 20 units twice daily at home. She was hypoglycemic and dose decreased by 25% Patient currently on Humalog scale as well. 7. Hypertension. Continue Norvasc 5 mg twice daily. 8. Hyperlipidemia. Continue Zocor 20 mg at bedtime. 9. Hypothyroidism. Continue levothyroxine 112 g daily. 10. Vitamin D deficiency. Continue calcium and vitamin D supplement. 11. Gastrointestinal prophylaxis. Continue Protonix 40 mg IV daily. 12. DVT prophylaxis. Heparin as not started due to thrombocytopenia. ALAINA zuniga and SCDs. Discharge plan: Return home Impression and plan of care have been directed as dictated by the signing physician. Frida Coughlin nurse practitioner acting as scribe for signing physician. Time with Patient: Greater than 30
[2016-08-14] MEDS: ACETAMINOPHEN TAB 325 MG TAB PO PRN (16:52)
[2016-08-14 17:25] LABS: Glucose,Whole Blood 108 mg/dL (75-99)
--- NOTE | 2016-08-14 17:44 | P.PN ---
Subjective On the patient remains afebrile. She denies any new complaints. No obvious bleeding noted. Objective - Vital Signs Vital signs: Vital Signs Temp 96.3 F L 08/14/16 15:35 Pulse 71 08/14/16 15:35 Resp 18 08/14/16 15:35 BP 154/67 08/14/16 15:35 Pulse Ox 100 08/14/16 15:35 Intake & Output 08/13/16 08/14/16 08/14/16 18:59 06:59 18:59 Intake Total 50 1106 200 Balance 50 1106 200 Weight 68.039 kg Intake: Intake, IV Titration 50 150 200 Amount Acyclovir Sodium 500 mg 100 100 In Sodium Chloride 0.9% 100 ml @ 100 mls/hr IVPB Q8HR [facility] Rx#:[id number] Cefepime 2 gm In Sodium 50 50 100 Chloride 0.9% 50 ml @ 100 mls/hr IVPB Q8HR [facility] Rx# :[id number] Oral 120 Blood Product 836 Platelet Pheresis Acda 418 Unit [id number] Other: Voiding Method Toilet Toilet Toilet # Voids 3 2 5 - Constitutional General appearance: Present: no acute distress - EENT ENT: Present: normal oropharynx, other (Viral lesion lower lip) - Respiratory Respiratory: bilateral: CTA - Cardiovascular Rhythm: regular Heart sounds: normal: S1, S2 - Gastrointestinal General gastrointestinal: Present: normal bowel sounds, soft - Integumentary Integumentary: Present: normal - Neurologic Neurologic: Present: CNII-XII intact - Musculoskeletal Musculoskeletal: Present: generalized weakness, strength equal bilaterally - Psychiatric Psychiatric: Present: A&O x's 3, appropriate affect - Labs CBC & Chem 7: 08/14/16 07:52 08/14/16 07:52 Labs: Abnormal Lab Results - Last 24 Hours (Table) 08/14/16 08/14/16 08/14/16 Range/Units 02:01 07:11 07:52 WBC 0.5 L* (3.8-10.6) k/uL RBC 2.94 L (3.80-5.40) m/uL Hgb 8.9 L (11.4-16.0) gm/dL Hct 26.5 L (34.0-46.0) % Plt Count 9 L* (150-450) k/uL Glucose (74-99) mg/dL POC Glucose (mg/dL) 101 H 115 H (75-99) mg/dL Total Protein (6.3-8.2) g/dL 08/14/16 08/14/16 08/14/16 Range/Units 07:52 11:15 17:06 WBC (3.8-10.6) k/uL RBC (3.80-5.40) m/uL Hgb (11.4-16.0) gm/dL Hct (34.0-46.0) % Plt Count (150-450) k/uL Glucose 133 H (74-99) mg/dL POC Glucose (mg/dL) 121 H 108 H (75-99) mg/dL Total Protein 8.3 H (6.3-8.2) g/dL Assessment and Plan (1) Febrile neutropenia Narrative/Plan: The patient has had no fever since her initial admission. Neutropenia persists, but that is expected, given her underlying condition. Cultures have remained negative. At this time there is low likelihood of for having significant bacterial infection. Case was discussed with ID. From our standpoint, can be changed over to by mouth antibiotics. Status: Acute (2) Pancytopenia Narrative/Plan: A hemoglobin remains stable at 8.9 which is satisfactory. Platelet however was still lower than 10 at 9 today. An additional unit of platelets will be ordered. Unless fever recurs, or the patient has any other symptoms, from our standpoint she can be discharged once platelets are greater than 10. She'll be on continued follow-up and monitoring in the outpatient setting with transfusions as needed Status: Acute (3) AML (acute myeloblastic leukemia) Status: Acute
--- NOTE | 2016-08-14 18:00 | P.PN ---
Subjective Principal diagnosis: Thrombocytopenia This is an 85-year-old female. Patient is well-known to ID service due to her recent hospitalization at [facility] from August 01 through August 07 at which time she was treated for neutropenic fever. She did receive transfusion of platelets and packed RBCs. She was followed by oncology as well as Dr. Bowling from infectious disease. She was treated with IV Cefepime and at the time of discharge she went home on ciprofloxacin for 14 day course. She has been seen by Dr. 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 CAT scan revealed inflammatory changes in the bowel and lung nodules. PET scan in June 2015 did not reveal any evidence of metastatic disease. 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 Due to severe anemia in April 2016 she underwent a bone marrow biopsy which was consistent with acute myelogenous leukemia. Patient decided to start Dacogen which was done on 07/13/2016 and completed 1 cycle on 07/17/2016. Patient presented to [facility] emergency center patient lives with her sister and sister was concerned that she was pale and that her blood counts were low again. White count 0.7, hemoglobin 6.2 and platelet count 13. Emergency center contacted Dr. Cortez requesting admission for transfusion. Her vital signs were stable. Temperature max 101.2. Urinalysis was nitrate and leukoesterase negative. Chest x-ray showed cardiomegaly with suspected improvement in aeration. Repeat lab work shows a WBC of 0.5, hemoglobin 8.5, platelet count 8. Patient has been seen by Dr. Cortez and platelet transfusion has been ordered which will arrive late this evening. Blood culture is showing no growth at 24 hours. Patient states that she is feeling normal and at her baseline. Patient is noted to have a large lesion on her mid lower lip which she does not recall when that started. She also complains of lesions on her mucous membranes of her mouth and tongue. She denies having any vomiting. She denies having any dark stools. Patient relates that the lip and mouth are feeling considerably better. She's having no further fever or chills. Waiting for some further platelet transfusion. Objective - Vital Signs Vital signs: Vital Signs Temp 96.3 F L 08/14/16 15:35 Pulse 71 08/14/16 15:35 Resp 18 08/14/16 15:35 BP 154/67 08/14/16 15:35 Pulse Ox 100 08/14/16 15:35 Intake & Output 08/13/16 08/14/16 08/14/16 18:59 06:59 18:59 Intake Total 50 1106 200 Balance 50 1106 200 Weight 68.039 kg Intake: Intake, IV Titration 50 150 200 Amount Acyclovir Sodium 500 mg 100 100 In Sodium Chloride 0.9% 100 ml @ 100 mls/hr IVPB Q8HR [facility] Rx#:[id number] Cefepime 2 gm In Sodium 50 50 100 Chloride 0.9% 50 ml @ 100 mls/hr IVPB Q8HR [facility] Rx# :[id number] Oral 120 Blood Product 836 Platelet Pheresis Acda 418 Unit [id number] Other: Voiding Method Toilet Toilet Toilet # Voids 3 2 5 - Exam Gen: This is an 85-year-old female. She is found sitting up and appears to be in no acute distress. HEENT: Head is atraumatic, normocephalic. Pupils equal, round. Sclerae is anicteric. Conjunctiva pale. Large lesion noted to the mid lower lip is an eschar, is yonas with no bleeding today. Very few lesions in the oral cavity are seen today. Much less tenderness in oral cavity. NECK: Supple. No JVD. No lymphadenopathy. No thyromegaly. LUNGS: Clear to auscultation. No wheezes or rhonchi. No intercostal retractions. HEART: Regular rate and rhythm. No murmur. ABDOMEN: Soft. Bowel sounds are present. No masses. No tenderness. EXTREMITIES: No pedal edema. No calf tenderness. Dorsalis pedis +2 bilaterally. NEUROLOGICAL: Patient is awake, alert and oriented x3 - Labs CBC & Chem 7: 08/14/16 07:52 08/14/16 07:52 Labs: Abnormal Lab Results - Last 24 Hours (Table) 08/14/16 08/14/16 08/14/16 Range/Units 02:01 07:11 07:52 WBC 0.5 L* (3.8-10.6) k/uL RBC 2.94 L (3.80-5.40) m/uL Hgb 8.9 L (11.4-16.0) gm/dL Hct 26.5 L (34.0-46.0) % Plt Count 9 L* (150-450) k/uL Glucose (74-99) mg/dL POC Glucose (mg/dL) 101 H 115 H (75-99) mg/dL Total Protein (6.3-8.2) g/dL 08/14/16 08/14/16 08/14/16 Range/Units 07:52 11:15 17:06 WBC (3.8-10.6) k/uL RBC (3.80-5.40) m/uL Hgb (11.4-16.0) gm/dL Hct (34.0-46.0) % Plt Count (150-450) k/uL Glucose 133 H (74-99) mg/dL POC Glucose (mg/dL) 121 H 108 H (75-99) mg/dL Total Protein 8.3 H (6.3-8.2) g/dL Assessment and Plan (1) Fever Narrative/Plan: Pleasant 85-year-old woman who presents to Hospital with complaints of increasing discomfort of her lower lip, concerns to her low blood counts and some fever. She's feeling considerably better today. Her fever is resolved. The lesion to her lower lip is definitely feeling better. It is not expanding. It is contracted a bit. Responding well to the current antiviral therapy. Case is discussed with her oncologist and likely will be going home tomorrow after platelet transfusion. We'll continue her routine prophylactic therapy but would also have her complete her course of Valtrex over the next week at home. Topical moisturizers to the lip are helpful. Good hand hygiene after his helpful to prevent spread to other areas. Status: Acute (2) Herpes simplex type 1 infection Status: Acute
[2016-08-14 20:22] LABS: Glucose,Whole Blood 117 mg/dL (75-99)
[2016-08-14] MEDS: ATORVASTATIN 10 MG TAB PO SCH (21:10)
[2016-08-15 02:00] LABS: Glucose,Whole Blood 93 mg/dL (75-99)
[2016-08-15] MEDS: LIDOCAINE VISCOUS 300 MG/15 ML CUP MUCOUS MEM SCH ×5 (02:36→16:01)
[2016-08-15] MEDS: LEVOTHYROXINE 112 MCG TAB PO SCH (06:33)
[2016-08-15 07:09] LABS: Glucose,Whole Blood 98 mg/dL (75-99)
[2016-08-15] MEDS: INSULIN LISPRO (humaLOG) 300 UNIT/3 ML VIAL SQ SCH ×3 (07:32→17:17)
[2016-08-15] MEDS: ACYCLOVIR SODIUM 500 MG in SODIUM CHLORIDE 0.9% 100 ML IVPB SCH ×2 (07:35→16:01)
[2016-08-15 07:39] LABS: CH 30.1; CHCM 34.6; HCT 22.6 % (34.0-46.0); HDW 3.26; HGB 7.7 gm/dL (11.4-16.0); MCH 29.9 pg (25.0-35.0); MCHC 34.2 g/dL (31.0-37.0); MCV 87.3 fL (80.0-100.0); Mean Platelet Volume 7.9; RBC 2.59 m/uL (3.80-5.40); RDW 13.4 % (11.5-15.5)
[2016-08-15 07:40] LABS: WBC 0.4 k/uL (3.8-10.6)
[2016-08-15 07:45] VITALS: RESP 18
[2016-08-15 07:48] LABS: ALT 22 U/L (9-52); AST 15 U/L (14-36); Alkaline Phosphatase 56 U/L (38-126); Anion Gap 10 mmol/L; Blood Urea Nitrogen 10 mg/dL (7-17); Calcium 9.1 mg/dL (8.4-10.2); Carbon Dioxide 26 mmol/L (22-30); Chloride 107 mmol/L (98-107); Glucose 96 mg/dL (74-99); Non-African American GFR(MDRD) >60 (>60 ml/min/1.73 sqM); Potassium 3.7 mmol/L (3.5-5.1); Sodium 143 mmol/L (137-145); Total Bilirubin 0.7 mg/dL (0.2-1.3); Total Protein 7.7 g/dL (6.3-8.2)
[2016-08-15] MEDS: CEFEPIME 2 GM in SODIUM CHLORIDE 0.9% 50 ML IVPB SCH (08:29)
[2016-08-15] MEDS: INSULIN NPH/REG INSULIN 70/30 300 UNIT/3 ML VIAL SQ SCH ×2 (08:29→17:17)
[2016-08-15] MEDS: PANTOPRAZOLE 40 MG TABLET PO SCH (08:30)
[2016-08-15] MEDS: CALCIUM CARBONATE 500 MG CHEWABLE PO SCH (08:31)
[2016-08-15] MEDS: amLODIPine 5 MG TAB PO SCH (08:31)
[2016-08-15] MEDS: ANASTROZOLE 1 MG TAB PO SCH (08:31)
[2016-08-15] MEDS: CHOLECALCIFEROL 1,000 UNIT TAB PO SCH (08:32)
[2016-08-15 12:12] LABS: Glucose,Whole Blood 101 mg/dL (75-99)
[2016-08-15 15:23] VITALS: TEMP 98.3
--- NOTE | 2016-08-15 15:39 | P.PN ---
Subjective Principal diagnosis: Thrombocytopenia This is an 85-year-old female. Patient is well-known to ID service due to her recent hospitalization at [facility] from August 01 through August 07 at which time she was treated for neutropenic fever. She did receive transfusion of platelets and packed RBCs. She was followed by oncology as well as Dr. Bowling from infectious disease. She was treated with IV Cefepime and at the time of discharge she went home on ciprofloxacin for 14 day course. She has been seen by Dr. 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 CAT scan revealed inflammatory changes in the bowel and lung nodules. PET scan in June 2015 did not reveal any evidence of metastatic disease. 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 Due to severe anemia in April 2016 she underwent a bone marrow biopsy which was consistent with acute myelogenous leukemia. Patient decided to start Dacogen which was done on 07/13/2016 and completed 1 cycle on 07/17/2016. Patient presented to [facility] emergency center patient lives with her sister and sister was concerned that she was pale and that her blood counts were low again. White count 0.7, hemoglobin 6.2 and platelet count 13. Emergency center contacted Dr. Cortez requesting admission for transfusion. Her vital signs were stable. Temperature max 101.2. Urinalysis was nitrate and leukoesterase negative. Chest x-ray showed cardiomegaly with suspected improvement in aeration. Repeat lab work shows a WBC of 0.5, hemoglobin 8.5, platelet count 8. Patient has been seen by Dr. Cortez and platelet transfusion has been ordered which will arrive late this evening. Blood culture is showing no growth at 24 hours. Patient states that she is feeling normal and at her baseline. Patient is noted to have a large lesion on her mid lower lip which she does not recall when that started. She also complains of lesions on her mucous membranes of her mouth and tongue. She denies having any vomiting. She denies having any dark stools. Patient relates that the lip and mouth are feeling considerably better. She's having no further fever or chills. Waiting for some further platelet transfusion. Then to be discharged home Completed a course of Valtrex there Objective - Vital Signs Vital signs: Vital Signs Temp 98.3 F 08/15/16 15:17 Pulse 69 08/15/16 15:17 Resp 18 08/15/16 15:17 BP 162/70 08/15/16 15:17 Pulse Ox 97 08/15/16 15:17 Intake & Output 08/14/16 08/15/16 08/15/16 18:59 06:59 18:59 Intake Total 200 445 728 Balance 200 445 728 Intake: IV 375 Sodium Chloride 0.9% 1, 375 000 ml @ 75 mls/hr IV . [id number] [facility] Rx#:[id number] Intake, IV Titration 200 150 Amount Acyclovir Sodium 500 mg 100 100 In Sodium Chloride 0.9% 100 ml @ 100 mls/hr IVPB Q8HR [facility] Rx#:[id number] Cefepime 2 gm In Sodium 50 Chloride 0.9% 50 ml @ 100 mls/hr IVPB Q12HR [facility] Rx #:[id number] Cefepime 2 gm In Sodium 100 Chloride 0.9% 50 ml @ 100 mls/hr IVPB Q8HR [facility] Rx# :[id number] Oral 240 Blood Product 205 203 Platelet Irr Pheresis 3 205 Acda Unit [id number] Platelet Pheresis Acda3 203 Unit [id number] Other: Voiding Method Toilet Toilet # Voids 5 2 - Labs CBC & Chem 7: 08/15/16 07:02 08/15/16 07:02 Labs: Abnormal Lab Results - Last 24 Hours (Table) 08/14/16 08/14/16 08/15/16 Range/Units 17:06 20:21 07:02 WBC 0.4 L* (3.8-10.6) k/uL RBC 2.59 L (3.80-5.40) m/uL Hgb 7.7 L (11.4-16.0) gm/dL Hct 22.6 L (34.0-46.0) % Plt Count 8 L* (150-450) k/uL POC Glucose (mg/dL) 108 H 117 H (75-99) mg/dL Albumin (3.5-5.0) g/dL 08/15/16 08/15/16 Range/Units 07:02 11:57 WBC (3.8-10.6) k/uL RBC (3.80-5.40) m/uL Hgb (11.4-16.0) gm/dL Hct (34.0-46.0) % Plt Count (150-450) k/uL POC Glucose (mg/dL) 101 H (75-99) mg/dL Albumin 3.2 L (3.5-5.0) g/dL Assessment and Plan (1) Fever Status: Acute (2) Herpes simplex type 1 infection Status: Acute
[2016-08-15 15:44] VITALS: BP 144/66; PULSE 73
[2016-08-15 17:05] LABS: Glucose,Whole Blood 102 mg/dL (75-99)
--- NOTE | 2016-08-15 19:16 | P.DS ---
Providers Date of admission: 08/12/16 14:18 Expected date of discharge: 08/15/16 Attending physician: Amandeep Calvo Consults: 08/13/16 09:35 Consult Physician Routine Consulting Provider: Rubén Bowling Reason/Comments: possible viral lesion lip, febrile neutropenia Do you want consulting provider notified?: Yes Primary care physician: [facility] Course: This is an 85-year-old female. Her primary care physician is Dr. Pride. She has a past medical history of diabetes mellitus type 2 insulin- requiring, hypertension, hyperlipidemia, hypothyroidism, breast cancer, colon cancer status post bowel resection, acute myelogenous leukemia, pancytopenia, vitamin D deficiency. Patient had a recent hospitalization at [facility] at which time she was admitted from July 02 through 2016. She was treated for anemia and was transfused with 3 units of packed RBCs. Her troponins were elevated 0.33 and this was thought to be due to the anemia. Her EF was 55-60%. She was then hospitalized at [facility] from August 01 through August 07 at which time she was treated for neutropenic fever. She did receive transfusion of platelets and packed RBCs. She was seen in consultation by oncology as well as Dr. Bowling from infectious disease. She was treated with IV 7 time and at the time of discharge she went home on ciprofloxacin for 14 day course. She has been seen by Dr. 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 CAT scan revealed inflammatory changes in the bowel and lung nodules. PET scan in June 2015 did not reveal any evidence of metastatic disease. 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 Due to severe anemia in April 2016 she underwent a bone marrow biopsy which was consistent with acute myelogenous leukemia. Patient decided to start Dacogen which was done on 07/13/2016 and completed 1 cycle on 07/17/2016. Patient presented to [facility] emergency center patient lives with her sister and sister was concerned that she was pale and that her blood counts were low again. White count 0.7, hemoglobin 6.2 and platelet count 13. Emergency center contacted Dr. Cortez requesting admission for transfusion. Her vital signs were stable. Temperature max 101.2. Urinalysis was nitrate and leukoesterase negative. Chest x-ray showed cardiomegaly with suspected improvement in aeration. Repeat lab work shows a WBC of 0.5, hemoglobin 8.5, platelet count 8. Patient has been seen by Dr. Cortez and platelet transfusion has been ordered which will arrive late this evening. Blood culture is showing no growth at 24 hours. Patient states that she is feeling normal and at her baseline. Patient is noted to have a large lesion on her mid lower lip for which consult added for Dr. Bowling. She denies having any vomiting. She denies having any dark stools. 08/14: patient underwent transfusion of 2 units of packed RBCs and platelets yesterday. Repeat blood work revealsWBC 0.5, hemoglobin 8.9, platelet count 9. Platelet glucose running between 101 and 121. Patient is denying any complaints. She is eating adequately. She is complaining of discomfort to her lower lip where she has a viral lesion. She has been afebrile. Patient is anxious to be discharged home but is agreeable to stay. Patient noted to be Anti -E positive on blood bank. 08/15: Patient was transfused platelets today, cleared by oncology and infectious disease for discharge. Follow-up made on August [address] Blanco and Dr. Quinteros patient's in good spirits ready for discharge FINAL DIAGNOSIS: 1. 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 Patient is status post platelet and packed RBC transfusions. Followed by oncology 2. Acute myelogenous leukemia. Followed oncology Dr. Amaris martinez 3. Neutropenic fever with temperature max 101.2. Dr. Bowling viral herpes oral lesions negative for bacteremia negative for pneumonia 4. History of breast cancer, adenocarcinoma of the colon, neuroendocrine carcinoma of the small bowel. 5. 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 Acyclovir IV ordered by Dr. Bowling. Transition to oral valacyclovir 6. Diabetes mellitus type 2, insulin requiring. Patient is on Novolin 70/30 20 units twice daily at home. 7. Hypertension. Continue Norvasc 5 mg twice daily. 8. Hyperlipidemia. Continue Zocor 20 mg at bedtime. 9. Hypothyroidism. Continue levothyroxine 112 g daily. 10. Vitamin D deficiency. Continue calcium and vitamin D supplement. 11. Gastrointestinal prophylaxis. Continue Protonix 40 mg IV daily. Patient Condition at Discharge: Serious Plan - Discharge Summary New Discharge Prescriptions: valACYclovir [Valtrex] 500 mg PO TID #21 tab Discharge Medication List Acetaminophen [Tylenol 8 Hour] 650 mg PO QID PRN 06/03/16 [History] Anastrozole [Arimidex] 1 mg PO DAILY 06/03/16 [History] Calcium Carbonate [Calcium] 600 mg PO DAILY 06/03/16 [History] Cholecalciferol [Vitamin D3] 1,000 unit PO DAILY 06/03/16 [History] Diphenoxylate HCl/Atropine [Lomotil] 1 - 2 tab PO QID PRN 06/03/16 [History] Levothyroxine Sodium [Synthroid] 112 mcg PO DAILY 06/03/16 [History] Simvastatin [Zocor] 20 mg PO HS 06/03/16 [History] Ubidecarenone [Co Q-10] 1 cap PO DAILY 06/03/16 [History] amLODIPine BESYLATE [Norvasc] 5 mg PO BID 06/03/16 [History] Insulin NPH Hum/Reg Insulin Hm [NovoLIN 70-30 100 UNIT/ML VIAL] 20 unit SQ AC- BID 08/01/16 [History] Psyllium Husk 100% [Metamucil Packet] 6 gm PO DAILY PRN 08/01/16 [History] Ciprofloxacin HCl [Cipro] 500 mg PO Q12HR #28 tablet 08/06/16 [Rx] valACYclovir [Valtrex] 500 mg PO TID #21 tab 08/15/16 [Rx] Follow up Appointment(s)/Referral(s): Rubén Pride MD [Primary Care Provider] - 1-2 days [facility], [NON-STAFF] - 1 Week Andreina Glez MD [STAFF PHYSICIAN] - 1 Week (as scheduled on 08/18) Patient Instructions/Handouts: Oral Herpes Simplex Virus Infections (GEN) Activity/Diet/Wound Care/Special Instructions: [facility]-[phone] Discharge Disposition: HOME SELF-CARE
== END 2016-08-15 18:40 | disposition home health service (06) | DRG 809 ==
LOC: EC 10:18 → 5ONC 14:18
PROVIDERS: ADMIT Internal Medicine; ATTEND Internal Medicine
PROC: 30233R1 Transfusion of Nonautologous Platelets into Peripheral Vein, Percutaneous Approach (ICD-10-PCS; principal; 2016-08-12)
PROC: 30233N1 Transfusion of Nonautologous Red Blood Cells into Peripheral Vein, Percutaneous Approach (ICD-10-PCS; 2016-08-12)
DX: D61.810 Antineoplastic chemotherapy induced pancytopenia (principal); C92.00 Acute myeloblastic leukemia, not having achieved remission; I11.9 Hypertensive heart disease without heart failure; E11.9 Type 2 diabetes mellitus without complications; R50.81 Fever presenting with conditions classified elsewhere; D70.3 Neutropenia due to infection; Z66 Do not resuscitate; B00.1 Herpesviral vesicular dermatitis; E78.5 Hyperlipidemia, unspecified; E03.9 Hypothyroidism, unspecified; E55.9 Vitamin D deficiency, unspecified; R91.1 Solitary pulmonary nodule; T45.1X5A Adverse effect of antineoplastic and immunosuppressive drugs, initial encounter; Z85.3 Personal history of malignant neoplasm of breast; Z85.038 Personal history of other malignant neoplasm of large intestine; Z90.49 Acquired absence of other specified parts of digestive tract; Z92.21 Personal history of antineoplastic chemotherapy; Z87.891 Personal history of nicotine dependence; Z79.4 Long term (current) use of insulin; Z79.811 Long term (current) use of aromatase inhibitors; Z79.899 Other long term (current) drug therapy
CPT/HCPCS: 36415; 36430; 71020; 80053; 81001; 82550; 82553; 83036; 83735; 84484; 85025; 85027; 86850; 86870; 86880; 86900; 86901; 86902; 86920; 87040; 93005; 96360; 96361; 99285